=== PATIENT | female | born 1985 | race African-American/Black ===

== ENCOUNTER 2018-05-08 03:47 | Observation (INO) | payer OTHER ==
--- NOTE | 2018-05-08 05:13 | PDOC ---
History of Present Illness - General Stated Complaint: CHEST DISCOMFORT Time Seen by Provider: 05/08/18 05:09 - History of Present Illness Initial Comments: 05/08/18 05:10 33 yo F with h/o HTN, and AAA graft repair (2016) who p/w chest discomfort. Patient reports 2 days of diffuse chest pressure/tightness, SOB, and non productive cough, with no identifiable alleviators. Chest discomfort worse with position change and deep inhalation. Patient reports using friends duoneb with improvement in symptoms. Denies home O2 requirements. + chronic BL LE edema. Patient denies N/V, F,C, PND, orthopnea, palpitations urinary complaints, abdominal pain, diarrhea, constipation, lightheadedness, weakness, sensory changes. PMHx: as noted above. Denies h/o ACS/OH, stent placement, CABG. ROS: as noted SHx: Denies Etoh, IVDA tobacco use. Allergies: NKDA Past History - Past Medical History Allergies/Adverse Reactions: Allergies Allergy/AdvReac Type Severity Reaction Status Date / Time No Known Allergies Allergy Verified 05/08/18 05:23 Home Medications: Ambulatory Orders Metoprolol Tartrate [Lopressor -] 50 mg PO BID 06/27/15 Insulin Regular, Human [Humulin R -] 65 units SQ BID 10/28/15 Labetalol HCl [Normodyne -] 100 mg PO BID 10/28/15 NPH, Human Insulin Isophane [Humulin N] 65 unit SQ HS 10/28/15 NPH, Human Insulin Isophane [Humulin N] 95 unit SQ AM 10/28/15 Cephalexin [Keflex] 500 mg PO BID #14 capsule MDD 2 tab 05/08/18 Anemia: Yes Asthma: No Cancer: No Cardiac Disorders: No CVA: No COPD: No CHF: No DVT: No Dementia: No Diabetes: Yes (IDDM) Dialysis: No GI Disorders: No Disorders: No HTN: Yes Hypercholesterolemia: No Liver Disease: No Seizures: No Thyroid Disease: No - Surgical History Abdominal Surgery: No Appendectomy: No Cardiac Surgery: No Cholecystectomy: No Lung Surgery: No Neurologic Surgery: No - Immunization History Immunization Up to Date: Yes - Suicide/Smoking/Psychosocial Hx Smoking Status: No Smoking History: Never smoked Have you smoked in the past 12 months: No Number of Cigarettes Smoked Daily: 0 Hx Alcohol Use: No Drug/Substance Use Hx: No Substance Use Type: None Hx Substance Use Treatment: No Review of Systems - Review of Systems Comments:: 05/08/18 05:11 GENERAL/CONSTITUTIONAL: No fever or chills. No weakness. HEAD, EYES, EARS, NOSE AND THROAT: No change in vision. No ear pain or discharge. No sore throat. CARDIOVASCULAR: + chest pain and shortness of breath RESPIRATORY: + cough, wheezing. No hemoptysis. GASTROINTESTINAL: No nausea, vomiting, diarrhea or constipation. GENITOURINARY: No dysuria, frequency, or change in urination. MUSCULOSKELETAL: No joint or muscle swelling or pain. No neck or back pain. SKIN: No rash NEUROLOGIC: No headache, vertigo, loss of consciousness, or change in strength/ sensation. ENDOCRINE: No increased thirst. No abnormal weight change HEMATOLOGIC/LYMPHATIC: No anemia, easy bleeding, or history of blood clots. ALLERGIC/IMMUNOLOGIC: No hives or skin allergy. *Physical Exam - Physical Exam Comments: 05/08/18 05:11 GENERAL: Awake, alert, and fully oriented, in no acute distress HEAD: No signs of trauma, normocephalic, atraumatic EYES: PERRLA, EOMI, sclera anicteric, conjunctiva clear ENT: Hearing grossly normal, nares patent, oropharynx clear without exudates. Moist mucosa NECK: Normal ROM, supple, no lymphadenopathy, JVD, or masses LUNGS: + Exp wheezing. No distress, speaks full sentences, absent rales. HEART: Regular rate and rhythm, normal S1 and S2, no murmurs, rubs or gallops, peripheral pulses normal and equal bilaterally. ABDOMEN: Soft, nontender, normoactive bowel sounds. No guarding, no rebound. No masses EXTREMITIES : 2+ Pitting edema BL. Normal inspection, Normal range of motion. No clubbing or cyanosis. SKIN: Warm, Dry, normal turgor, no rashes or lesions noted ED Treatment Course - LABORATORY CBC & Chemistry Diagram: 05/08/18 05:59 05/08/18 05:59 Medical Decision Making - Medical Decision Making 05/08/18 05:12 33 yo F with h/o morbid obesity, HTN, and AAA graft repair (2016) who p/w pleuritic, chest discomfort. HR 104, BP 151/102, AF. + Exp wheezing. ACS/OH r/ o. R/o PNA. Low suspicion Ao dissection. Likely asthma exacerbation. DDx also includes COPD, CHF. R/o PE. Ed Course: CBC,CMP, Cardiac Pr. BNP, UA, Urine Preg EKG, CXR 05/08/18 06:36 EKG: NSR with absent JESSICA, STD. Normal axis and interval duration. 05/08/18 07:22 CBC,CMP: Unremarkable UA:3+ Blood, 489 RBC, 76 WBC Keflex sent to pharmacy HCG: Neg 05/08/18 07:28 CXR: No acute pathology on preliminary read CTA Chest Pending Trop: 0.07 05/08/18 08:10 Patient to be admitted to tele/obs. Signed out to day team. *DC/Admit/Observation/Transfer Diagnosis at time of Disposition: Cough, Elevated troponin Asthma Qualifiers: Asthma severity: mild Asthma persistence: unspecified Asthma complication type : unspecified Qualified Code(s): J45.998 - Other asthma - Discharge Dispostion Disposition: HOME Condition at time of disposition: Stable Decision to Admit order: No - Prescriptions Prescriptions: Cephalexin [Keflex] 500 mg PO BID #14 capsule MDD 2 tab - Referrals - Patient Instructions Printed Discharge Instructions: DI for Atypical Chest Pain Additional Instructions: Please return to the emergency department with any new or worsening symptoms or concerns. Please follow up with your primary care physician within 72 hours. Please take Keflex two times per day for 7 days. - Post Discharge Activity - Attestations Physician Attestion: 05/08/18 05:13 I attest to the information provided in this note.
[2018-05-08] MEDS ORDERED: ALBUTEROL SO4 2.5/IPRATROPIUM 0.5 INH SOL 3 ML VIAL.NEB. NEB ONE ×4 (05:26→13:49)
--- NOTE | 2018-05-08 05:45 | PDOC ---
Attending Attestation - Resident Resident Name: Guillermo Bennett - ED Attending Attestation I have performed the following: I have examined & evaluated the patient, The case was reviewed & discussed with the resident, I agree w/resident's findings & plan, Exceptions are as noted - HPI HPI: 33 yo F history morbid obesity, HTN, AAA repair 2016 presents with pleuritic chest pain. Noted to have tachycardia, hypertension. She used friend's duoneb with some improvment. Notes chronic BLE edema. - Physicial Exam PE: GENERAL: Awake, alert, and fully oriented, in no acute distress HEAD: No signs of trauma EYES: PERRLA, EOMI, sclera anicteric, conjunctiva clear ENT: Auricles normal inspection, hearing grossly normal, nares patent, oropharynx clear without exudates. Moist mucosa NECK: Normal ROM, supple, no lymphadenopathy, JVD, or masses LUNGS: Dec air entry B/L with exp wheezes. Speaking full sentences. No crackles. HEART: Tachycardic with regular rhythm, normal S1 and S2, no murmurs, rubs or gallops ABDOMEN: Soft, nontender, normoactive bowel sounds. No guarding, no rebound. No masses EXTREMITIES: Normal range of motion. 2+ pitting edema to BLE. No clubbing or cyanosis. No cords, erythema, or tenderness NEUROLOGICAL: Cranial nerves II through XII grossly intact. Normal speech, normal gait SKIN: Warm, Dry, normal turgor, no rashes or lesions noted. - Medical Decision Making Labs including cardiac profile obtained. CTA obtained. Noted to have UTI on UA. Awaiting CTA results.
[2018-05-08 06:35] LABS: URINE APPEARANCE CLEAR; URINE BILIRUBIN NEGATIVE (<2.0 mg/dL); URINE COLOR YELLOW; URINE GLUCOSE (UA) 3+ (NEGATIVE); URINE KETONE NEGATIVE (NEGATIVE); URINE LEUK ESTERASE NEGATIVE (NEGATIVE); URINE NITRITE NEGATIVE (NEGATIVE); URINE UROBILINOGEN NEGATIVE mg/dL (0.2-1.0)
[2018-05-08 06:40] LABS: BASO % 0.6 % (0-2.0); EOS % 4.7 % (0-4.5); HEMATOCRIT 36.4 % (32.4-45.2); HEMOGLOBIN 11.8 GM/dL (10.7-15.3); LYMPH % 21.7 % (8-40); MCH 26.8 pg (25.7-33.7); MCHC 32.5 g/dl (32.0-36.0); MEAN CELL VOLUME 82.5 fl (80-96); MEAN PLT VOLUME 8.1 fl (7.5-11.1); MONO % 5.3 % (3.8-10.2); NEUT % 67.7 % (42.8-82.8); PLATELET COUNT 278 K/MM3 (134-434); RDW 15.3 % (11.6-15.6); WHITE BLOOD COUNT 9.3 K/mm3 (4.0-10.0)
[2018-05-08 06:59] LABS: URINE PROTEIN 3+ (NEGATIVE)
[2018-05-08 07:15] LABS: ALBUMIN 3.8 g/dl (3.4-5.0); ALK PHOS 149 U/L (45-117); ANION GAP 7 MMOL/L (8-16); BILIRUBIN,TOTAL 0.3 mg/dL (0.2-1); BLOOD UREA NITROGEN 20 mg/dL (7-18); CALCIUM 8.5 mg/dL (8.5-10.1); CHLORIDE 104 mmol/L (98-107); CO2 30 mmol/L (21-32); GLUCOSE,RANDOM 118 mg/dL (74-106); POTASSIUM 3.9 mmol/L (3.5-5.1); SGOT/AST 37 U/L (15-37); SGPT/ALT 44 U/L (13-61); SODIUM 140 mmol/L (136-145); TOT PROT 6.9 g/dl (6.4-8.2)
[2018-05-08 07:19] LABS: EPI CELLS RARE /HPF (FEW); URINE MUCUS RARE
--- NOTE | 2018-05-08 08:48 | HP ---
CHIEF COMPLAINT: chest discomfort HISTORY OF PRESENT ILLNESS: 33 year old female with a history of hypertension, abdominal aortic aneurysm repair (2016) presents to the hospital with 2 day history of chest discomfort, cough, and shortness of breath. She describes the discomfort as a "lump" in her throat that hurts her when she swallows or takes a deep breath, and reports that it becomes worse with various positions. She states that the pain sometimes comes down to the mid-sternum and radiates to the left side of her chest. She reports a non-productive dry cough. States that prior to these symptoms, she had just gotten over a cold. Patient denies any family history of cardiac disease and denies blood clots in her or her family. She reports mild swelling in her legs bilaterally. Denies fevers, chills, nausea, vomiting, diarrhea, abdominal pain, fatigue. ER course was notable for: (1) BP 151/102 (2) pulse 104 (3) EKG NSR 99bmp Recent Travel: denies PAST MEDICAL HISTORY: HTN, AAA aneurysm PAST SURGICAL HISTORY: AAA repair, kidney biopsy, C section, breast reduction Social History: Smoking: denies Alcohol: denies Drugs: denies Family History: no history of cardiac disease, cancer, diabetes, or stroke Allergies No Known Allergies Allergy (Verified 05/08/18 05:23) HOME MEDICATIONS: Home Medications Medication Instructions Recorded Metoprolol Tartrate [Lopressor -] 50 mg PO BID 06/27/15 Insulin Regular, Human [Humulin R 65 units SQ BID 10/28/15 -] Labetalol HCl [Normodyne -] 100 mg PO BID 10/28/15 NPH, Human Insulin Isophane 65 unit SQ HS 10/28/15 [Humulin N] NPH, Human Insulin Isophane 95 unit SQ AM 10/28/15 [Humulin N] Cephalexin [Keflex] 500 mg PO BID #14 capsule MDD 2 tab 05/08/18 REVIEW OF SYSTEMS CONSTITUTIONAL: Absent: fever, chills, diaphoresis, generalized weakness, malaise, loss of appetite, weight change HEENT: Absent: rhinorrhea, nasal congestion, throat pain, throat swelling, difficulty swallowing, mouth swelling, ear pain, eye pain, visual changes CARDIOVASCULAR: chest pain Absent: syncope, palpitations, irregular heart rate, lightheadedness, peripheral edema RESPIRATORY: Absent: cough, shortness of breath, dyspnea with exertion, orthopnea, wheezing, stridor, hemoptysis GASTROINTESTINAL: Absent: abdominal pain, abdominal distension, nausea, vomiting, diarrhea, constipation, melena, hematochezia GENITOURINARY: Absent: dysuria, frequency, urgency, hesitancy, hematuria, flank pain, genital pain MUSCULOSKELETAL: Absent: myalgia, arthralgia, joint swelling, back pain, neck pain SKIN: Absent: rash, itching, pallor HEMATOLOGIC/IMMUNOLOGIC: Absent: easy bleeding, easy bruising, lymphadenopathy, frequent infections ENDOCRINE: Absent: unexplained weight gain, unexplained weight loss, heat intolerance, cold intolerance NEUROLOGIC: Absent: headache, focal weakness or paresthesias, dizziness, unsteady gait, seizure, mental status changes, bladder or bowel incontinence PSYCHIATRIC: Absent: anxiety, depression, suicidal or homicidal ideation, hallucinations. PHYSICAL EXAMINATION Vital Signs - 24 hr 05/08/18 03:50 Temperature 99.0 F Pulse Rate 104 H Respiratory 20 Rate Blood Pressure 151/102 H O2 Sat by Pulse 98 Oximetry (%) GENERAL: A&Ox3, no acute distress EYES: PERRLA, EOMI ENT: Moist mucus membranes NECK: No JVD LUNGS: CTA, no wheezes HEART: RRR, no murmurs ABDOMEN: Morbidly obese, soft, nontender, BS present MUSCULOSKELETAL: No CVA Tenderness EXTREMITIES: 2+ pulses, 1+ edema. NEUROLOGICAL: Cranial nerves II-XII intact. Laboratory Results - last 24 hr 05/08/18 05/08/18 05/08/18 05:59 05:59 05:59 WBC 9.3 RBC 4.40 Hgb 11.8 Hct 36.4 MCV 82.5 MCH 26.8 MCHC 32.5 RDW 15.3 Plt Count 278 D MPV 8.1 Absolute Neuts (auto) 6.3 Neutrophils % 67.7 Lymphocytes % 21.7 D Monocytes % 5.3 Eosinophils % 4.7 H D Basophils % 0.6 Nucleated RBC % 0 Sodium Potassium Chloride Carbon Dioxide Anion Gap BUN Creatinine Creat Clearance w eGFR Random Glucose Calcium Total Bilirubin AST ALT Alkaline Phosphatase Creatine Kinase 274 H Creatine Kinase Index 0.6 CK-MB (CK-2) 1.7 Troponin I 0.07 H B-Natriuretic Peptide Total Protein Albumin Urine Color Yellow Urine Appearance Clear Urine pH 5.0 Ur Specific [place] 1.020 Urine Protein 3+ H Urine Glucose (UA) 3+ H Urine Ketones Negative Urine Blood 3+ H Urine Nitrite Negative Urine Bilirubin Negative Urine Urobilinogen Negative Ur Leukocyte Esterase Negative Urine WBC (Auto) 76 Urine RBC (Auto) 489 Ur Epithelial Cells Rare Urine Mucus Rare Urine HCG, Qual 05/08/18 05/08/18 05/08/18 05:59 05:59 05:59 WBC RBC Hgb Hct MCV MCH MCHC RDW Plt Count MPV Absolute Neuts (auto) Neutrophils % Lymphocytes % Monocytes % Eosinophils % Basophils % Nucleated RBC % Sodium 140 Potassium 3.9 Chloride 104 Carbon Dioxide 30 Anion Gap 7 L BUN 20 H Creatinine 1.0 Creat Clearance w eGFR > 60 Random Glucose 118 H Calcium 8.5 Total Bilirubin 0.3 AST 37 ALT 44 Alkaline Phosphatase 149 H Creatine Kinase Creatine Kinase Index CK-MB (CK-2) Troponin I B-Natriuretic Peptide 36.6 Total Protein 6.9 Albumin 3.8 Urine Color Urine Appearance Urine pH Ur Specific [place] Urine Protein Urine Glucose (UA) Urine Ketones Urine Blood Urine Nitrite Urine Bilirubin Urine Urobilinogen Ur Leukocyte Esterase Urine WBC (Auto) Urine RBC (Auto) Ur Epithelial Cells Urine Mucus Urine HCG, Qual Negative ASSESSMENT/PLAN: 33 year old female with a history of hypertension, abdominal aortic aneurysm repair (2015) presents to the hospital with 2 day history of chest discomfort, cough, and shortness of breath #Chest pain: unlikely cardiac event, but admitted for rule out PE and cardiac monitoring for 24 hours -initial troponin 0.07, repeat at 12pm -cardiac monitoring -CTA chest negative for PE -echocardiogram -cardiology consultation -duoneb -ENT consult for feeling of lump in throat -GI consult for swallowing difficulty -protonix 40 daily #Hypertension: patient is continuing to have hypertension despite being on lisinopril -continue home lisinopril 10 daily -start amlodipine 5 daily -start metoprolol 50 BID #FEN -saline @ 100cc/hr 1 bag -lytes normal -low sodium diet #Prophylaxis -lovenox #Disposition -admit telemetry monitoring Visit type - Emergency Visit Emergency Visit: Yes ED Registration Date: 05/08/18 Care time: The patient presented to the Emergency Department on the above date and was hospitalized for further evaluation of their emergent condition. - New Patient This patient is new to me today: Yes Date on this admission: 05/08/18 - Critical Care Critical Care patient: No
[2018-05-08] MEDS ORDERED: ACETAMINOPHEN 325 MG TABLET (FP) PO PRN (08:49)
[2018-05-08] MEDS ORDERED: SODIUM CHLORIDE 0.45% 1,000 ML IV SCH (09:00)
[2018-05-08] MEDS ORDERED: ENOXAPARIN NA (PORCINE) 40 MG/0.4 ML DISP.SYRIN SQ ONE (09:05)
--- NOTE | 2018-05-08 10:41 | EKG ---
Test Reason : Blood Pressure : / mmHG Vent. Rate : 099 BPM Atrial Rate : 099 BPM P-R Int : 144 ms QRS Dur : 074 ms QT Int : 342 ms P-R-T Axes : 040 029 018 degrees QTc Int : 438 ms NORMAL SINUS RHYTHM POSSIBLE LEFT ATRIAL ENLARGEMENT NONSPECIFIC T WAVE ABNORMALITY ABNORMAL ECG Confirmed by Suman Burdick MD ([id number]) on 05/08/2018 10:41:19 AM Referred By: Confirmed By:Suman Burdick MD
[2018-05-08] MEDS: ALBUTEROL SO4 2.5/IPRATROPIUM 0.5 INH SOL 3 ML VIAL.NEB. NEB PRN ×2 (10:54→13:57)
[2018-05-08] MEDS: ENOXAPARIN NA (PORCINE) 40 MG/0.4 ML DISP.SYRIN SQ SCH (10:54)
--- NOTE | 2018-05-08 10:55 | PN ---
Teaching Attending Note Name of Resident: Marcelo Pantoja ATTENDING PHYSICIAN STATEMENT I saw and evaluated the patient. I reviewed the resident's note and discussed the case with the resident. I agree with the resident's findings and plan as documented. SUBJECTIVE: This is a 33 year old woman with a history of HTN, hyperlipidemia, AAA and repair, RAJ, obesity who comes to the ED complaining of chest pain, cough and SOB. She reports having the feeling of a lump in her throat and is unable to swallow solid food or liquids. This pain is sometimes located in the middle of her chest. Symptoms are worse with deep inspiration and when swallowing. She denies CP/SOB with exertion, fever, chills, palpitations, heartburn. OBJECTIVE: Vital Signs Period Temp Pulse Resp BP Sys/Al Pulse Ox Last 24 Hr 99.0 F 104 20 151/102 98 HEART: S1S2, tachycardic LUNGS: Clear ABDOMEN: Obese, soft, non-tender, non-distended, normal BS EXTREMITIES: Trace edema Laboratory Tests 05/08/18 05/08/18 05/08/18 05:59 05:59 05:59 WBC 9.3 RBC 4.40 Hgb 11.8 Hct 36.4 MCV 82.5 MCH 26.8 MCHC 32.5 RDW 15.3 Plt Count 278 D MPV 8.1 Absolute Neuts (auto) 6.3 Neutrophils % 67.7 Lymphocytes % 21.7 D Monocytes % 5.3 Eosinophils % 4.7 H D Basophils % 0.6 Nucleated RBC % 0 Sodium Potassium Chloride Carbon Dioxide Anion Gap BUN Creatinine Creat Clearance w eGFR Random Glucose Calcium Total Bilirubin AST ALT Alkaline Phosphatase Creatine Kinase 274 H Creatine Kinase Index 0.6 CK-MB (CK-2) 1.7 Troponin I 0.07 H B-Natriuretic Peptide Total Protein Albumin Urine Color Yellow Urine Appearance Clear Urine pH 5.0 Ur Specific [place] 1.020 Urine Protein 3+ H Urine Glucose (UA) 3+ H Urine Ketones Negative Urine Blood 3+ H Urine Nitrite Negative Urine Bilirubin Negative Urine Urobilinogen Negative Ur Leukocyte Esterase Negative Urine WBC (Auto) 76 Urine RBC (Auto) 489 Ur Epithelial Cells Rare Urine Mucus Rare Urine HCG, Qual 05/08/18 05/08/18 05/08/18 05:59 05:59 05:59 WBC RBC Hgb Hct MCV MCH MCHC RDW Plt Count MPV Absolute Neuts (auto) Neutrophils % Lymphocytes % Monocytes % Eosinophils % Basophils % Nucleated RBC % Sodium 140 Potassium 3.9 Chloride 104 Carbon Dioxide 30 Anion Gap 7 L BUN 20 H Creatinine 1.0 Creat Clearance w eGFR > 60 Random Glucose 118 H Calcium 8.5 Total Bilirubin 0.3 AST 37 ALT 44 Alkaline Phosphatase 149 H Creatine Kinase Creatine Kinase Index CK-MB (CK-2) Troponin I B-Natriuretic Peptide 36.6 Total Protein 6.9 Albumin 3.8 Urine Color Urine Appearance Urine pH Ur Specific Ira Urine Protein Urine Glucose (UA) Urine Ketones Urine Blood Urine Nitrite Urine Bilirubin Urine Urobilinogen Ur Leukocyte Esterase Urine WBC (Auto) Urine RBC (Auto) Ur Epithelial Cells Urine Mucus Urine HCG, Qual Negative Home Medications Medication Instructions Recorded Metoprolol Tartrate [Lopressor -] 50 mg PO BID 06/27/15 Insulin Regular, Human [Humulin R 65 units SQ BID 10/28/15 -] Labetalol HCl [Normodyne -] 100 mg PO BID 10/28/15 NPH, Human Insulin Isophane 95 unit SQ AM 10/28/15 [Humulin N] ASSESSMENT AND PLAN: This is a 33 year old woman with a history of HTN, hyperlipidemia, AAA and repair, RAJ, obesity who presented to the ED with chest pain, cough, SOB, and difficulty swallowing. 1. Chest pain, odynophagia - Unlikely cardiac - No evidence of PE on CTA - Monitor or telemetry - Serial troponins - Protonix - ENT, GI, cardiology evaluations 2. HTN, uncontrolled - Continue Lisinopril - Add Norvasc 3. Hyperlipidemia 4. Obstructive sleep apnea 5. Morbid obesity with BMI 44.8
--- NOTE | 2018-05-08 11:30 | CON.CARD ---
Consult Consult Specialty:: Cardiology Referred by:: Hospitalist Reason for Consultation:: Cardiac evaluation - History of Present Illness Chief Complaint: SOB and chest pain History of Present Illness: Patient is a 33 year old female morbidly obese and has history of HTN, hypercholesterolemia, diabetes mellitus, obstructive sleep apnea and AAA s/p EVAR (2016) who presents with mid sternal chest discomfort, SOB and mild productive cough. Troponin was slightly elevated without any ECG abnormalities. CT of chest did not reveal PTE. She states that symptoms started 2 days ago and it occurs intermittently. She denies paroxysmal nocturnal dyspnea or orthopnea. She denies nausea, vomiting, diarrhea or abdominal pain. She denies fever or chills. She denies headache or lightheadedness. - History Source History Provided By: Patient, Medical Record Limitations to Obtaining History: No Limitations - Past Medical History Cardio/Vascular: Yes: HTN, Hyperlipdemia Pulmonary: Yes: Sleep Apnea. No: Asthma, COPD ...LMP: 08/31/14 Musculoskeletal: Yes: Other (left thigh pain) Endocrine: Yes: Diabetes Mellitus - Past Surgical History Past Surgical History: Yes: AAA Repair (EVAR), Additional Surgical History: Breast reduction - Alcohol/Substance Use Hx Alcohol Use: No - Smoking History Smoking history: Never smoked Have you smoked in the past 12 months: No Aproximately how many cigarettes per day: 0 - Social History ADL: Independent History of Recent Travel: No Home Medications - Allergies Allergies/Adverse Reactions: Allergies Allergy/AdvReac Type Severity Reaction Status Date / Time No Known Allergies Allergy Verified 05/08/18 05:23 - Home Medications Home Medications: Ambulatory Orders Metoprolol Tartrate [Lopressor -] 50 mg PO BID 06/27/15 Insulin Regular, Human [Humulin R -] 65 units SQ BID 10/28/15 Labetalol HCl [Normodyne -] 100 mg PO BID 10/28/15 NPH, Human Insulin Isophane [Humulin N] 95 unit SQ AM 10/28/15 Family Disease History - Family Disease History Family Disease History: Heart Disease: Father Review of Systems - Review of Systems Constitutional: denies: Chills, Fever Cardiovascular: reports: Chest Pain, Shortness of Breath. denies: Palpitations Respiratory: reports: Cough, SOB. denies: Hemoptysis, Orthopnea, PND Gastrointestinal: denies: Abdominal Pain, Constipation, Diarrhea, Melena, Nausea , Rectal Bleeding, Vomiting Neurological: denies: Dizziness, Headache, Seizure, Syncope Vital Signs: Vital Signs Temperature 98.4 F 05/08/18 10:45 Pulse Rate 88 05/08/18 10:45 Respiratory Rate 20 05/08/18 10:45 Blood Pressure 179/99 H 05/08/18 10:45 O2 Sat by Pulse Oximetry (%) 98 05/08/18 10:45 Constitutional: Yes: Obese Eyes: Yes: PERRL HENT: Yes: Atraumatic Neck: Yes: Supple Respiratory: Yes: Diminished Gastrointestinal: Yes: Normal Bowel Sounds, Soft, Abdomen, Obese. No: Tenderness Cardiovascular: Yes: Regular Rate and Rhythm JVD: No Carotid Bruit: No PMI: Non-Displaced Heart Sounds: Yes: S1, S2. No: Gallop Murmur: No: Systolic Murmur Edema: No - Other Data Labs, Other Data: CBC, BMP 05/08/18 05:59 05/08/18 05:59 Troponin, BNP 05/08/18 05/08/18 05:59 05:59 Troponin I 0.07 H B-Natriuretic Peptide 36.6 NSR, nonspecific T abnormality Echo: Pending Imaging - Results Cat Scan: Report Reviewed (CTA chest noted) EKG: Report Reviewed Problem List - Problems (1) Chest pain Code(s): R07.9 - CHEST PAIN, UNSPECIFIED Qualifiers: Chest pain type: unspecified Qualified Code(s): R07.9 - Chest pain, unspecified (2) HTN (hypertension) Code(s): I10 - ESSENTIAL (PRIMARY) HYPERTENSION Qualifiers: Hypertension type: essential hypertension Qualified Code(s): I10 - Essential (primary) hypertension (3) Hypercholesterolemia Code(s): E78.00 - PURE HYPERCHOLESTEROLEMIA, UNSPECIFIED (4) Diabetes mellitus Code(s): E11.9 - TYPE 2 DIABETES MELLITUS WITHOUT COMPLICATIONS (5) Cough Code(s): R05 - COUGH (6) Elevated troponin Code(s): R74.8 - ABNORMAL LEVELS OF OTHER SERUM ENZYMES (7) Obstructive sleep apnea Code(s): G47.33 - OBSTRUCTIVE SLEEP APNEA (ADULT) (PEDIATRIC) (8) Reactive airway disease Code(s): J45.909 - UNSPECIFIED ASTHMA, UNCOMPLICATED Assessment/Plan 1. Chest pain syndrome and throat pain with slight elevation of troponin suggest demand ischemia 2. AAA repair (EVAR) 3. HTN 4. Hypercholesterolemia 5. DM 6. Obstructive sleep apnea 7. Exogenous obesity PLAN: 1. Trend troponin 2. Echocardiography to assess LV/RV and valvular function 3. ENT evaluation 4. Lipid panel and statin if clinically indicated 5. Treat sleep apnea 6. Add beta sulma (Metoprolol Tartrate 50 BID) and add ACEI or ARB 7. ASA Further plans are to follow Maverick Leon MD
[2018-05-08] MEDS ORDERED: amLODIPine BESYLATE 5 MG TABLET (FP) ONE (14:06)
[2018-05-08] MEDS ORDERED: METOPROLOL TARTRATE 50 MG TABLET (FP) ONE (14:06)
[2018-05-08] MEDS ORDERED: LISINOPRIL 5 MG TABLET (FP) ONE (14:06)
[2018-05-08] MEDS: LISINOPRIL 10 MG TABLET (FP) PO SCH (14:11)
[2018-05-08] MEDS: METOPROLOL TARTRATE 50 MG TABLET (FP) PO SCH ×2 (14:11→22:06)
[2018-05-08] MEDS: amLODIPine BESYLATE 5 MG TABLET (FP) PO SCH (14:11)
--- NOTE | 2018-05-08 16:03 | ECHO ---
Name: ENEIDA HERNANDEZ Exam:Adult Echocardiogram Study Date: 05/08/2018 01:28 PM Age: 33 yrs Reason For Study: CHEST PAIN Height: 72 in Weight: 330 lb BSA: 2.6 m2 MMode/2D Measurements & Calculations IVSd: 1.2 cm Ao root diam: 3.2 cm LVIDd: 4.6 cm LA dimension: 3.1 cm LVIDs: 2.8 cm LVPWd: 1.2 cm EDV(Teich): 96.8 ml LVOT diam: 2.2 cm ESV(Teich): 30.5 ml RV S Spenser: 15.4 cm/sec Doppler Measurements & Calculations MV E max spenser: 55.3 cm/sec Med Peak E' Spenser: 6.5 cm/sec MV A max spenser: 52.4 cm/sec Med E/e': 8.5 MV E/A: 1.1 Lat Peak E' Spenser: 5.1 cm/sec Lat E/e': 10.8 Procedure A complete two-dimensional transthoracic echocardiogram was performed (2D, M-mode, Doppler and color flow Doppler). Left Ventricle The left ventricular size, thickness and function are normal. Ejection Fraction = 65%. Right Ventricle The right ventricle is normal in size and function. Atria Normal left and right atrial size and function. Mitral Valve The mitral valve is normal in structure and function. Tricuspid Valve The tricuspid valve is normal in structure and function. Aortic Valve The aortic valve is normal in structure and function. Pulmonic Valve The pulmonic valve is not well seen, but is grossly normal. Great Vessels The aortic root is normal size. Pericardium/Pleura There is no pericardial effusion. There is no pleural effusion. Interpretation Summary This was essentially a normal study. The left ventricular size, thickness and function are normal Ejection Fraction = 65%. MD Suman Burdick 05/08/2018 04:02 PM
--- NOTE | 2018-05-08 16:25 | CON.GI ---
Consult Consult Specialty:: GI Referred by:: Hospitalist Service Reason for Consultation:: Dysphagia - History of Present Illness Chief Complaint: "I can't breathe and my throat hurts" History of Present Illness: 33F admitted through [facility] ER for evaluation of shortness of breath. She also comoplains of throat pain "that is making it hard to swallow" chest pain, and she describes a ball like sensation in her mid chest. She believes that this all started after a URI (describes fevers/chills that resolved followed by cough. She denies nausea, vomiting or unintentional weight loss. She had a previous CT scan of the neck in 2013 that showed enlarged "kissing" tonsils. She denies abdominal pain, rectal bleeding, change in bowel habits. She has never had an upper endoscopy or colonoscopy. there is no family history of colorectal cancer or other GI malignancy. - History Source History Provided By: Patient, Family Member - Past Medical History Cardio/Vascular: Yes: HTN, Hyperlipdemia Pulmonary: Yes: Sleep Apnea. No: Asthma, COPD ...LMP: 08/31/14 Musculoskeletal: Yes: Other (left thigh pain) Endocrine: Yes: Diabetes Mellitus - Past Surgical History Past Surgical History: Yes: AAA Repair (EVAR), Additional Surgical History: Breast reduction - Alcohol/Substance Use Hx Alcohol Use: Yes (Social) History of Substance Use: reports: None - Smoking History Smoking history: Never smoked Have you smoked in the past 12 months: No Aproximately how many cigarettes per day: 0 - Social History ADL: Independent Occupation: Unemployed Place of : Other ([place]) Came to [place]year[place] 1998 History of Recent Travel: No Home Medications - Allergies Allergies/Adverse Reactions: Allergies Allergy/AdvReac Type Severity Reaction Status Date / Time No Known Allergies Allergy Verified 05/08/18 05:23 - Home Medications Home Medications: Ambulatory Orders Metoprolol Tartrate [Lopressor -] 50 mg PO BID 06/27/15 Insulin Regular, Human [Humulin R -] 65 units SQ BID 10/28/15 Labetalol HCl [Normodyne -] 100 mg PO BID 10/28/15 NPH, Human Insulin Isophane [Humulin N] 95 unit SQ AM 10/28/15 Family Disease History - Family Disease History Family Disease History: Heart Disease: Father (: Alcoholic liver cirrhosis) , Other: Mother (Alive: healthy), Brother (3, healthy), Sister (2, healthy), Son (1, healthy) Other Family History: No family history of colorectal cancer or other GI malignancy Review of Systems - Review of Systems Constitutional: reports: Chills, Fever (resolved) HENT: reports: Difficult Swallowing Cardiovascular: reports: Chest Pain, Shortness of Breath Respiratory: reports: Cough Gastrointestinal: reports: Dysphagia. denies: Abdominal Pain, Constipation, Diarrhea, Melena, Nausea, Vomiting, Vomiting Blood Physical Exam-GI Vital Signs: Vital Signs Temperature 97.9 F 05/08/18 15:53 Pulse Rate 80 05/08/18 15:53 Respiratory Rate 20 05/08/18 15:53 Blood Pressure 133/80 05/08/18 15:53 O2 Sat by Pulse Oximetry (%) 100 05/08/18 15:53 Constitutional: Yes: Calm Eyes: No: Sclera Icterus HENT: Yes: Other (Tongue depressor utilized: white coating of tongue, no posterior pharyngeal thrush noted, 1+ tonsils, mucous in the posterior pharynx) Cardiovascular: Yes: Regular Rate and Rhythm. No: Murmur Respiratory: Yes: CTA Bilaterally Gastrointestinal Inspection: Yes: Scars (vertical pelvic surgical scar) ...Auscultate: Yes: Normoactive Bowel Sounds ...Palpate: No: Hepatomegaly, Splenomegaly, Tenderness ...Percussion: No: Tympanitic Edema: Yes (Trace b/l LE edema) Neurological: Yes: Alert Labs: CBC, BMP 05/08/18 05:59 05/08/18 05:59 Hepatic Panel Total Bilirubin 0.3 mg/dL (0.2-1) 05/08/18 05:59 AST 37 U/L (15-37) 05/08/18 05:59 ALT 44 U/L (13-61) 05/08/18 05:59 Alkaline Phosphatase 149 U/L (45-117) H 05/08/18 05:59 Albumin 3.8 g/dl (3.4-5.0) 05/08/18 05:59 Imaging - Results Cat Scan: Report Reviewed Assessment/Plan Dysphagia: Main complaints seem to be related to her throat complaints. This in turn seems to have been precipitated by a recent URI. Tolerated water as I was examining her. Advise: ENT evaluation S/S evaluation. A modified barium swallow may be of benefit when acute issues are resolved Ranitidine oral suspension 150mg once daily Clear diet to assess if she can tolerate then advance
[2018-05-08] MEDS: ASPIRIN COATED 81 MG TABLET.EC PO SCH (22:06)
[2018-05-08] MEDS: INSULIN SLIDING SCALE (NOVOLOG) 1 VIAL SQ SCH (22:10)
[2018-05-09] MEDS: ALBUTEROL SO4 2.5/IPRATROPIUM 0.5 INH SOL 3 ML VIAL.NEB. NEB PRN (00:05)
[2018-05-09 00:10] VITALS: BMI 41.2
[2018-05-09] MEDS: INSULIN SLIDING SCALE (NOVOLOG) 1 VIAL SQ SCH ×4 (06:30→18:43)
[2018-05-09 06:36] LABS: HEMATOCRIT 35.2 % (32.4-45.2); HEMOGLOBIN 11.2 GM/dL (10.7-15.3); MCH 26.5 pg (25.7-33.7); MCHC 31.9 g/dl (32.0-36.0); MEAN PLT VOLUME 7.9 fl (7.5-11.1); PLATELET COUNT 241 K/MM3 (134-434); RBC 4.24 M/mm3 (3.60-5.2); RDW 15.6 % (11.6-15.6); WHITE BLOOD COUNT 7.8 K/mm3 (4.0-10.0)
[2018-05-09 06:57] LABS: ANION GAP 12 MMOL/L (8-16); BLOOD UREA NITROGEN 14 mg/dL (7-18); CALCIUM 8.2 mg/dL (8.5-10.1); CHLORIDE 102 mmol/L (98-107); CO2 24 mmol/L (21-32); GLUCOSE,RANDOM 265 mg/dL (74-106); MAGNESIUM 2.1 mg/dL (1.8-2.4); POTASSIUM 4.2 mmol/L (3.5-5.1); SODIUM 138 mmol/L (136-145)
[2018-05-09] MEDS ORDERED: PT OWN MED DRAWER 7, Y5N ONE (09:41)
[2018-05-09] MEDS: METOPROLOL TARTRATE 50 MG TABLET (FP) PO SCH (09:48)
[2018-05-09] MEDS: amLODIPine BESYLATE 5 MG TABLET (FP) PO SCH (09:48)
[2018-05-09] MEDS: ASPIRIN COATED 81 MG TABLET.EC PO SCH (09:48)
[2018-05-09] MEDS: LISINOPRIL 10 MG TABLET (FP) PO SCH (09:48)
[2018-05-09] MEDS: ENOXAPARIN NA (PORCINE) 40 MG/0.4 ML DISP.SYRIN SQ SCH (09:49)
[2018-05-09] MEDS ORDERED: RANITIDINE HCL 150 MG/10 ML UNIT-DOSE PO SCH (10:00)
[2018-05-09] MEDS ORDERED: INSULIN (NOVOLOG) ASPART 100 UNITS/ML 10ML VIAL ONE (12:18)
--- NOTE | 2018-05-09 12:57 | CON.ENT ---
Consult Reason for Consultation:: Sore throat/trouble swallowing - History of Present Illness Chief Complaint: Sore throat/trouble swallowing History of Present Illness: 33 yo female with multiple medical problems , was in [place] until 3 days ago when she started with a dry cough and sore throat. She subsequently developed trouble swallowing and chest pressure and discomfort which brought her to the ER. Work up so far negative for PE, [place]. She then noted congestion, thick mucus and mild hoarseness. She is in no respiratory distress and is taking PO without minimal difficulty - History Source History Provided By: Patient Limitations to Obtaining History: No Limitations - Past Medical History Cardio/Vascular: Yes: HTN, Hyperlipdemia Pulmonary: Yes: Sleep Apnea. No: Asthma, COPD ...LMP: 05/09/18 ...: No Musculoskeletal: Yes: Other (left thigh pain) Endocrine: Yes: Diabetes Mellitus - Past Surgical History Past Surgical History: Yes: AAA Repair (EVAR), Additional Surgical History: Breast reduction - Alcohol/Substance Use Hx Alcohol Use: Yes (Social) History of Substance Use: reports: None - Smoking History Smoking history: Never smoked Have you smoked in the past 12 months: No Aproximately how many cigarettes per day: 0 - Social History ADL: Independent Occupation: Unemployed History of Recent Travel: No Home Medications - Allergies Allergies/Adverse Reactions: Allergies Allergy/AdvReac Type Severity Reaction Status Date / Time No Known Allergies Allergy Verified 05/08/18 05:23 - Home Medications Home Medications: Ambulatory Orders Metoprolol Tartrate [Lopressor -] 50 mg PO BID 06/27/15 Insulin Regular, Human [Humulin R -] 65 units SQ BID 10/28/15 Labetalol HCl [Normodyne -] 100 mg PO BID 10/28/15 NPH, Human Insulin Isophane [Humulin N] 95 unit SQ AM 10/28/15 Family Disease History - Family Disease History Family Disease History: Heart Disease: Father (: Alcoholic liver cirrhosis) , Other: Mother (Alive: healthy), Brother (3, healthy), Sister (2, healthy), Son (1, healthy) Other Family History: No family history of colorectal cancer or other GI malignancy Review of Systems - Review of Systems HENT: reports: Difficult Swallowing, Nasal Congestion, Throat Pain Neck: reports: Tenderness Respiratory: reports: Cough Physical Exam-ENT Vital Signs: Vital Signs Temperature 98.4 F 05/09/18 10:00 Pulse Rate 88 05/09/18 10:00 Respiratory Rate 20 05/09/18 10:00 Blood Pressure 150/92 05/09/18 10:00 O2 Sat by Pulse Oximetry (%) 97 05/09/18 10:00 Constitutional: Yes: No Distress, Obese Head: Yes: WNL Face: Yes: No Sinus Tenderness Eyes: Yes: WNL Nose: Yes: Boggy, Pale Nasal Passage: Yes: Pale Oral/Pharynx: Yes: Enlarged Tonsils, Other (NO exudate or lesions) Outer Ear: Yes: WNL Ear Canal: Yes: WNL Tympanic Membrane: Yes: WNL Neck: Yes: WNL Respiratory: Yes: Regular Extremities: Yes: WNL Neurological: Yes: Cran Nerves II-XII Intact Psychiatric: Yes: Alert Imaging - Results Chest X-ray: Report Reviewed Cat Scan: Report Reviewed Problem List - Problems (1) Dysphagia Assessment/Plan: Recent onset cough, sore throat, congestion and trouble swallowing with mild hoarseness- no purulence or lesions noted with normal VC mobility. Symptoms and findings consistent with viral syndrome. Continue medical workup and to treat symptoms as needed. ENT follow-up as an outpatient. Code(s): R13.10 - DYSPHAGIA, UNSPECIFIED Qualifiers: Dysphagia type: unspecified Qualified Code(s): R13.10 - Dysphagia, unspecified Procedure Note Procedure: Flexible Laryngoscopy- after obtaining verbal consent, topical decongestant/ anesthetic was spray into the nose. Flexible scope was passed. No evidence of sinusitis. Cloudy mucus in Nasopharynx. No tonsillar exudate noted. No airway edema or lesions noted. VC mobile bilaterally. Mild erythema of mucosa.
--- NOTE | 2018-05-09 13:02 | PN ---
Progress Note, Physician History of Present Illness: Throat pain and odynophagia improving, NPL by ENT unrevealing. - Current Medication List Current Medications: Active Medications Acetaminophen (Tylenol -) 650 mg PO Q4H PRN PRN Reason: PAIN Last Admin: 05/09/18 09:48 Dose: 650 mg Albuterol/Ipratropium (Duoneb -) 1 amp NEB Q4H PRN PRN Reason: SHORTNESS OF BREATH Last Admin: 05/09/18 00:05 Dose: 1 amp Amlodipine Besylate (Norvasc -) 5 mg PO DAILY [facility] Last Admin: 05/09/18 09:48 Dose: 5 mg Aspirin (Ecotrin -) 81 mg PO DAILY [facility] Last Admin: 05/09/18 09:48 Dose: 81 mg Enoxaparin Sodium (Lovenox -) 40 mg SQ DAILY [facility] Last Admin: 05/09/18 09:49 Dose: 40 mg Insulin Aspart (Novolog Vial Sliding Scale -) 1 vial SQ [facility]; Protocol Last Admin: 05/09/18 12:19 Dose: 8 units Lisinopril (Prinivil) 10 mg PO DAILY [facility] Last Admin: 05/09/18 09:48 Dose: 10 mg Metoprolol Tartrate (Lopressor -) 50 mg PO BID [facility] Last Admin: 05/09/18 09:48 Dose: 50 mg Ranitidine HCl (Zantac Oral Solution -) 150 mg PO DAILY [facility] Last Admin: 05/09/18 11:36 Dose: Not Given - Objective Vital Signs: Vital Signs Temperature 98.4 F 05/09/18 10:00 Pulse Rate 88 05/09/18 10:00 Respiratory Rate 20 05/09/18 10:00 Blood Pressure 150/92 05/09/18 10:00 O2 Sat by Pulse Oximetry (%) 97 05/09/18 10:00 Constitutional: Yes: No Distress, Calm Neck: Yes: Supple Cardiovascular: Yes: Regular Rate and Rhythm Respiratory: Yes: Regular, CTA Bilaterally Gastrointestinal: Yes: Normal Bowel Sounds, Soft Edema: No Labs: CBC, BMP 05/09/18 06:00 05/09/18 06:00 Problem List - Problems (1) Demand ischemia Code(s): I24.8 - OTHER FORMS OF ACUTE ISCHEMIC HEART DISEASE (2) Viral pharyngitis Code(s): J02.9 - ACUTE PHARYNGITIS, UNSPECIFIED (3) Chest pain Code(s): R07.9 - CHEST PAIN, UNSPECIFIED Qualifiers: Chest pain type: unspecified Qualified Code(s): R07.9 - Chest pain, unspecified (4) HTN (hypertension) Code(s): I10 - ESSENTIAL (PRIMARY) HYPERTENSION Qualifiers: Hypertension type: essential hypertension Qualified Code(s): I10 - Essential (primary) hypertension (5) Hypercholesterolemia Code(s): E78.00 - PURE HYPERCHOLESTEROLEMIA, UNSPECIFIED (6) Diabetes mellitus Code(s): E11.9 - TYPE 2 DIABETES MELLITUS WITHOUT COMPLICATIONS Qualifiers: Diabetes mellitus type: type 2 Diabetes mellitus manager long term care insulin use: without mcc use (7) Obstructive sleep apnea Code(s): G47.33 - OBSTRUCTIVE SLEEP APNEA (ADULT) (PEDIATRIC) Assessment/Plan 05/08/2018 Echo: Normal LV and RV szie abd fxn, no sig valve abnormalities 1. Chest pain syndrome and throat pain due to viral pharyngitis with slight elevation of troponin suggest demand ischemia 2. AAA repair (EVAR) 3. HTN 4. Hypercholesterolemia 5. DM 6. Obstructive sleep apnea on cpap 7. Exogenous obesity PLAN: 1. Troponin downtreding 3. ENT evaluation appreciatedd 4. Lipid panel and statin if clinically indicated 5. Treat sleep apnea 6. Continue Metoprolol Tartrate 50 BID, lisinopril 10 qd, ASA 81 qd and Norvasc 5 qd 7. DVT and GI prophylaxis
[2018-05-09 14:57] VITALS: BP 126/74; PULSE 90; TEMP 97.8
--- NOTE | 2018-05-09 15:49 | PN ---
Teaching Attending Note Name of Resident: John Jaimes ATTENDING PHYSICIAN STATEMENT I saw and evaluated the patient. I reviewed the resident's note and discussed the case with the resident. I agree with the resident's findings and plan as documented. SUBJECTIVE: No fever or chills. No abd pain , no MCDONALD , no PC . has pain with swallowing in throat and radiates to her abd OBJECTIVE: NAD CV : RRR Lungs: CTAB ext : no edema Abd: soft, NT, ND, NL BS. ASSESSMENT AND PLAN: 33 y/o lady with h/o DM , AAA repair , Dayanara, obesity , HTN and HLP, who presented with painin throat and chest with swallowing 1- CP , trop trended down - cont BB and aspirin - follow up with card - ENT evaluated her today , odynophagia due to viral illness. GI evaluated too 2- DM : on metformin as out pt . - repeat BMP to evaluate AG ( 7---12 today ) - will recommend insulin treatment in addition to metformin. if she does not agree can add januvia - weight loss 3- asymptomatic bacteruria : no treatment dc home if BMP , repeat sugar are better . refer to endocrine advise fro BGM ACHS as outpt , with close f/u with
--- NOTE | 2018-05-09 17:55 | PN ---
GI Progress Note Subjective: No acute events + cough Seen by ENT: felt throat discomfort precipitated by viral infection Still on clears Blood glucose has been elevated - Objective Vital Signs: Vital Signs Temperature 97.8 F 05/09/18 13:00 Pulse Rate 90 05/09/18 13:00 Respiratory Rate 16 05/09/18 13:00 Blood Pressure 126/74 05/09/18 13:00 O2 Sat by Pulse Oximetry (%) 97 05/09/18 10:00 Constitutional: Calm Eyes: No: Sclera Icterus Cardiovascular: Yes: Regular Rate and Rhythm Respiratory: Yes: CTA Bilaterally Gastrointestinal Inspection: No: Distention ...Auscultate: Yes: Normoactive Bowel Sounds ...Palpate: No: Tenderness Edema: Yes (Trace LE edema) Neurological: Yes: Alert, Oriented Labs: CBC, BMP 05/09/18 06:00 Problem List - Problems (1) Dysphagia Assessment/Plan: Suspect to be related to throat irritation Advance diet as tolerated glycemic control per primary team Recall GI as needed. I gave Ms. Rai my card to arrange future follow-up once acute issues are resolved Code(s): R13.10 - DYSPHAGIA, UNSPECIFIED
[2018-05-09 18:22] LABS: ANION GAP 7 MMOL/L (8-16); BLOOD UREA NITROGEN 14 mg/dL (7-18); CALCIUM 8.1 mg/dL (8.5-10.1); CHLORIDE 100 mmol/L (98-107); CO2 27 mmol/L (21-32); POTASSIUM 4.2 mmol/L (3.5-5.1); SODIUM 134 mmol/L (136-145)
[2018-05-09 18:24] LABS: GLUCOSE,RANDOM 313 mg/dL (74-106)
--- NOTE | 2018-05-09 20:04 | DS ---
Physical Exam: SUBJECTIVE: Patient seen and examined at bedside this morning. Patient admits improvement in "lump in throat" as well as in the chest. Denies fevers, chillls shortness of breath, palpitations, abdominal pain, nausea, vomiting, diarrhea. OBJECTIVE: Vital Signs Period Temp Pulse Resp BP Sys/Al Pulse Ox Last 24 Hr 97.5 F-98.4 F 84-90 16-20 126-155/74-96 96-97 PHYSICAL EXAM GENERAL: The patient is awake, alert, and fully oriented, in no acute distress. HEAD: Normal with no signs of trauma. EYES: PERRL, extraocular movements intact, sclera anicteric, conjunctiva clear. ENT: Oropharynx clear without exudates, moist mucous membranes. NECK: Trachea midline, full range of motion, supple without lymphadenopathy LUNGS: Breath sounds equal, clear to auscultation bilaterally, no wheezes, no crackles, no accessory muscle use. Good inspiratory effort. HEART: Regular rate and rhythm, S1, S2 without murmur, rub or gallop. ABDOMEN: Soft, nontender, nondistended, normoactive bowel sounds, no guarding, no rebound, no hepatosplenomegaly. EXTREMITIES: 2+ radial and dorsalis pedis pulses b/l. Warm, well-perfused. No edema b/l lower extremities. NEUROLOGICAL: Cranial nerves II through XII grossly intact. Normal speech. Strength 5/5 b/l upper and lower extremities. PSYCH: Normal mood, normal affect. SKIN: Warm, dry. LABS Laboratory Results - last 24 hr 05/08/18 05/08/18 05/08/18 19:50 20:13 20:23 WBC RBC Hgb Hct MCV MCH MCHC RDW Plt Count MPV Sodium Potassium Chloride Carbon Dioxide Anion Gap BUN Creatinine Creat Clearance w eGFR POC Glucometer > 400 > 400 Random Glucose 427 H* Calcium Phosphorus Magnesium 05/09/18 05/09/18 05/09/18 06:00 06:00 06:29 WBC 7.8 RBC 4.24 Hgb 11.2 Hct 35.2 MCV 83.0 MCH 26.5 MCHC 31.9 L RDW 15.6 Plt Count 241 MPV 7.9 Sodium 138 Potassium 4.2 Chloride 102 Carbon Dioxide 24 Anion Gap 12 BUN 14 Creatinine 1.0 Creat Clearance w eGFR > 60 POC Glucometer 275 Random Glucose 265 H Calcium 8.2 L Phosphorus 4.0 Magnesium 2.1 05/09/18 05/09/18 05/09/18 12:00 15:38 17:00 WBC RBC Hgb Hct MCV MCH MCHC RDW Plt Count MPV Sodium 134 L Potassium 4.2 Chloride 100 Carbon Dioxide 27 Anion Gap 7 L BUN 14 Creatinine 1.0 Creat Clearance w eGFR > 60 POC Glucometer 329 346 Random Glucose 313 H* Calcium 8.1 L Phosphorus Magnesium 05/09/18 17:33 WBC RBC Hgb Hct MCV MCH MCHC RDW Plt Count MPV Sodium Potassium Chloride Carbon Dioxide Anion Gap BUN Creatinine Creat Clearance w eGFR POC Glucometer 308 Random Glucose Calcium Phosphorus Magnesium HOSPITAL COURSE: Date of Admission:05/08/18 Date of Discharge: 05/09/18 Patient is a 33 year old female with history of HTN, DM, HLD, AAA repaired 2016 presents with complaint of chest pian. Troponins trended down from 0.07 to 0.06. Cardiology consult ruled out MT. She was started on Amlodipine, and Metoprolol. Lisinoporil continued. She was put on ISS for DM. GI consult discussed starting Ranitidine 150mg daily, and barium swallow as outpatient. ENT evaluation discussed likely viral syndrome. Patient blood sugar was elevated and she did not want to start insulin, so Januvia was added to her medication regimen. Instructed to measure blood glucose at least 3 times daily, and keep log of readings. She was provided consult for Endocrinologsit, Weight loss specialist, GI, ENT, cardiology, and primary care physician. Minutes to complete discharge: 45 Discharge Summary Reason For Visit: ELEVATED TROPONIN 1LEVEL/CHEST PAIN @ RES Condition: Stable - Instructions Diet, Activity, Other Instructions: You were admitted to the hospital for chest and throat pain. Your EKG showed no signs of heart attack The Academic Affairs Dean (Dr. Del Cid) evaluated you and will begin medications metoprolol 50mg twice a day, and Lisinopril 10mg daily. You will follow up with him as outpatient. The ENT physician evaluated you, and believes your symptoms are likely due to viral syndrome. You will follow up as an outpatient The system validation engineer (Dr. Humphrey) evaluated you and will begin medication Ranitidine 150mg once a day. You will follow up with him as an outpatient within one week of discharge. You may benefit from a modified barium swallow. We are adding medication Januvia 100mg once daily for your diabetes. Start taking this new medication in addition the metformin 1000mg twice a day. In addition, it is important that you check your blood sugar in the morning before eating/ drinking, before and after meals, and keep record of the numbers. You will call the primary care physician immediately if your blood sugar is above 300. We are providing you referral to Drill Runner (Dr. Serna) who will help further manage your diabetes medications. Follow up within 1 week after discharge and bring your log of blood sugar readings. We also recommend weight loss in improving the diabetes management and quality of life. We are ereferring you to Dr. Moya. Please follow up with your primary care physician within 1 week after discharge and bring your log of blood sugar readings to that appointment as well. Please return to the emergency department with any new or worsening symptoms or concerns, worsening chest pain, palpitations, vomiting, fevers. Referrals: Suman Moya MD [Staff Physician] - 2 Weeks (Follow for weight loss) Noe Colon MD [Staff Physician] - 1 Week Candelario Humphrey DO [Staff Physician] - 1 Week Eduardo Del Cid MD [Staff Physician] - 1 Week Sola Serna MD [Staff Physician] - Marcelo George MD [Staff Physician] - 1 Week Disposition: HOME - Home Medications Comprehensive Discharge Medication List: Ambulatory Orders Amlodipine Besylate 5 mg PO DAILY 30 Days #30 tablet 05/09/18 Amlodipine Besylate [Norvasc -] 5 mg PO DAILY #30 tablet 05/09/18 Amlodipine Besylate [Norvasc -] 5 mg PO DAILY 30 Days #30 tablet 05/09/18 Aspirin Coated [Ecotrin -] 81 mg PO DAILY tablet.ec 05/09/18 Atorvastatin Ca [Lipitor] 40 mg PO HS 05/09/18 Lisinopril 10 mg PO DAILY #30 tablet 05/09/18 Lisinopril [Prinivil] 10 mg PO DAILY 30 Days #30 tablet 05/09/18 Metformin HCl [Glucophage] 1,000 mg BID 05/09/18 Metoprolol Tartrate [Lopressor -] 50 mg PO BID 30 Days #60 tab 05/09/18 Ranitidine Oral Solution [Zantac Oral Solution -] 150 mg PO DAILY #300 ml Sitagliptin Phosphate [Januvia] 100 mg PO DAILY 30 Days #30 tablet 05/09/18 This patient is new to me today: Yes Date on this admission: 05/09/18 Emergency Visit: Yes ED Registration Date: 05/08/18 Care time: The patient presented to the Emergency Department on the above date and was hospitalized for further evaluation of their emergent condition. Critical Care patient: No - Discharge Referral Referred to [facility] Med [facility] No
== END 2018-05-09 19:08 | disposition home or self-care (01) ==
LOC: JER 03:47 → JERBED 08:12 → J4S 21:39
PROVIDERS: ADMIT Internal Medicine; ATTEND Internal Medicine
PROC: 3E0337Z Introduction of Electrolytic and Water Balance Substance into Peripheral Vein, Percutaneous Approach (ICD-10-PCS; 2018-05-08)
PROC: 3E013VG Introduction of Insulin into Subcutaneous Tissue, Percutaneous Approach (ICD-10-PCS; 2018-05-08)
PROC: 3E013GC Introduction of Other Therapeutic Substance into Subcutaneous Tissue, Percutaneous Approach (ICD-10-PCS; 2018-05-08)
PROC: 3E0F7GC Introduction of Other Therapeutic Substance into Respiratory Tract, Via Natural or Artificial Opening (ICD-10-PCS; 2018-05-08)
PROC: 0CJS8ZZ Inspection of Larynx, Via Natural or Artificial Opening Endoscopic (ICD-10-PCS; principal; 2018-05-09)
DX: R07.89 Other chest pain (principal); R77.8 Other specified abnormalities of plasma proteins; R05 Cough; J45.998 Other asthma; I10 Essential (primary) hypertension; E11.9 Type 2 diabetes mellitus without complications; R13.10 Dysphagia, unspecified; E78.5 Hyperlipidemia, unspecified; G47.33 Obstructive sleep apnea (adult) (pediatric); E66.9 Obesity, unspecified; Z68.41 Body mass index [BMI] 40.0-44.9, adult; Z79.4 Long term (current) use of insulin; Z86.79 Personal history of other diseases of the circulatory system; I24.8 Other forms of acute ischemic heart disease; J02.9 Acute pharyngitis, unspecified
CPT/HCPCS: 31575; 36415; 71045-TC-FY; 71275-TC; 80048; 80053; 81003; 81015; 82550; 82553; 82947; 82962; 83735; 83880; 84100; 84484; 84703; 85025; 85027; 93005; 93010; 93306-TC; 94640; 96372; 99285-25; G0378; J7620

== ENCOUNTER 2019-02-08 21:28 | Emergency (ER) | payer OTHER ==
[2019-02-08 22:01] VITALS: BMI 45.4
--- NOTE | 2019-02-08 22:33 | PDOC ---
History of Present Illness - General Chief Complaint: Vaginal Bleeding Stated Complaint: Miscarriage Time Seen by Provider: 02/08/19 22:31 History Source: Patient - History of Present Illness Initial Comments: 02/08/19 23:56 Ms. Rai is a 34 y/o woman with hx of diabetes, hypertension, iron deficiency anemia presenting one week s/p medically induced due to non- viable with weakness and near-syncope earlier today. She reports being at a picnic and, while attempting to stand up, becoming lightheaded and feeling "like [she] was going to pass out". She reports weakness ongoing since her on the at [place]. She reports shortness of breath on exertion as well as palpitations on exertion. She reports mild bleeding daily since the procedure. She reports that during her stay at [place], the medication that she took to pass the remains did not take effect immediately, necessitation four doses. She is unsure which medication she was given at that time. She did not have a D&C after consultation with her Ob. She reports that during her hospital stay she was told that her hemoglobin was low enough to "almost" need a blood transfusion, but that she did not receive one at that time. She also reports that she has been unable to fill her prescription for insulin due to high costs of the Humalin and is concerned for her blood sugar. Finally, she reports numbness down her R leg that has not resolved since it's onset two days ago. PERC - 2 Wells - 3 Past History - Past Medical History Allergies/Adverse Reactions: Allergies Allergy/AdvReac Type Severity Reaction Status Date / Time No Known Allergies Allergy Verified 02/08/19 21:50 Home Medications: Ambulatory Orders Amlodipine Besylate 5 mg PO DAILY 30 Days #30 tablet 05/09/18 Amlodipine Besylate [Norvasc -] 5 mg PO DAILY #30 tablet 05/09/18 Amlodipine Besylate [Norvasc -] 5 mg PO DAILY 30 Days #30 tablet 05/09/18 Aspirin Coated [Ecotrin -] 81 mg PO DAILY tablet.ec 05/09/18 Atorvastatin Ca [Lipitor] 40 mg PO HS 05/09/18 Lisinopril 10 mg PO DAILY #30 tablet 05/09/18 Lisinopril [Prinivil] 10 mg PO DAILY 30 Days #30 tablet 05/09/18 Metformin HCl [Glucophage] 1,000 mg BID 05/09/18 Metoprolol Tartrate [Lopressor -] 50 mg PO BID 30 Days #60 tab 05/09/18 Ranitidine Oral Solution [Zantac Oral Solution -] 150 mg PO DAILY #300 ml Sitagliptin Phosphate [Januvia] 100 mg PO DAILY 30 Days #30 tablet 05/09/18 Anemia: Yes Asthma: No Cancer: No Cardiac Disorders: No CVA: No COPD: No CHF: No DVT: No Dementia: No Diabetes: Yes (IDDM) Dialysis: No GI Disorders: No Disorders: No HTN: Yes Hypercholesterolemia: No Liver Disease: No Seizures: No Thyroid Disease: No - Surgical History Abdominal Surgery: No Appendectomy: No Cardiac Surgery: Yes (aaa repair 2015) Cholecystectomy: No Lung Surgery: No Neurologic Surgery: No Orthopedic Surgery: No - Immunization History Immunization Up to Date: Yes - Suicide/Smoking/Psychosocial Hx Smoking Status: No Smoking History: Never smoked Have you smoked in the past 12 months: No Number of Cigarettes Smoked Daily: 0 Information on smoking cessation initiated: No Hx Alcohol Use: Yes (occasional) Drug/Substance Use Hx: No Substance Use Type: Alcohol Hx Substance Use Treatment: No *Physical Exam - Vital Signs Last Vital Signs Temp Pulse Resp BP Pulse Ox 98.5 F 100 H 18 143/83 100 02/08/19 21:41 02/08/19 21:41 02/08/19 21:41 02/08/19 21:41 02/08/19 21:41 Medical Decision Making - Medical Decision Making 02/09/19 00:06 34 y/o F with hx diabetes, recent due to non-viable , p/w near syncope today after several days of weakness and exertional shortness of breath and palpitations, tachycardic. Differential for her includes blood loss anemia, hyperglycemia due to being unable to fill her insulin, and unable to r/ o PE at this time. Plan for admission to hospital, likely CT for evaluate possible PE as well as remains within the uterus.
--- NOTE | 2019-02-08 23:48 | PDOC ---
*Physical Exam - Vital Signs Last Vital Signs Temp Pulse Resp BP Pulse Ox 98.5 F 100 H 18 143/83 100 02/08/19 21:41 02/08/19 21:41 02/08/19 21:41 02/08/19 21:41 02/08/19 21:41 ED Treatment Course - LABORATORY CBC & Chemistry Diagram: 02/08/19 23:58 02/08/19 23:58 Medical Decision Making - Medical Decision Making 02/08/19 23:[address] Meyers. Patient is a 34 yo female w/ pmh of DM, HTN, iron deficiency anemia w/ known known non-viable . Patient evaluated previously at [facility]; found to be 9 weeks 01/23 w/ miscarriage. Was admitted to medical service and last H/H 01/30 was 13. Offered D&C 02/05 however refused. Patient presents today w/ weakness and near-syncope. Reports she has had daily bleeding since admission to [facility]. Currently pending US and CT for source of bleeding and PE rule-out. Patient also noted to be anemic as below. 02/09/19 02:38 US significant for 4.1 cm R ovarian cyst only, likely luteal. 02/09/19 04:30 CT cannot exclude small PE. Also fat containing ventral hernia noted. Patient will be transfused 1 unit PRBC's and admitted for further PE evaluation and OB/ AVIONICS SYSTEM ENGINEER consultation. 02/09/19 05:24 Patient reporting improvement of symptoms. Decision made to withhold PRBC's as symptoms improving. Strict return precautions discussed. Patient will follow-up outpatient with [facility] Monday and return if any changes. Discharging to home. Laboratory Results - last 24 hr 02/08/19 02/08/19 02/08/19 23:58 23:58 23:58 WBC 8.0 RBC 3.08 L Hgb 8.8 L Hct 27.3 L D MCV 88.6 MCH 28.7 MCHC 32.3 RDW 14.0 D Plt Count 326 D MPV 7.9 Absolute Neuts (auto) 5.5 Neutrophils % 69.2 Lymphocytes % 22.9 Monocytes % 6.1 Eosinophils % 1.4 Basophils % 0.4 Nucleated RBC % 0 PT with INR 12.60 INR 1.07 PTT (Actin FS) 29.9 Sodium 136 Potassium 4.2 Chloride 103 Carbon Dioxide 25 Anion Gap 8 BUN 19.6 H Creatinine 1.2 Est GFR (CKD-EPI)AfAm 67.33 Est GFR (CKD-EPI)NonAf 58.09 Random Glucose 297 H Calcium 8.4 L Total Bilirubin 0.3 AST 20 ALT 21 Alkaline Phosphatase 116 Creatine Kinase 228 H Creatine Kinase Index 0.4 CK-MB (CK-2) 1.1 Troponin I < 0.02 Total Protein 7.0 Albumin 2.9 L *DC/Admit/Observation/Transfer Diagnosis at time of Disposition: Pre-syncope, Weakness Anemia Qualifiers: Anemia type: unspecified type Qualified Code(s): D64.9 - Anemia, unspecified - Discharge Dispostion Disposition: HOME Decision to Admit order: Yes - Referrals - Patient Instructions - Post Discharge Activity
[2019-02-09 00:15] LABS: BASO % 0.4 % (0-2.0); EOS % 1.4 % (0-4.5); HEMATOCRIT 27.3 % (32.4-45.2); HEMOGLOBIN 8.8 GM/dL (10.7-15.3); LYMPH % 22.9 % (8-40); MCH 28.7 pg (25.7-33.7); MCHC 32.3 g/dl (32.0-36.0); MEAN CELL VOLUME 88.6 fl (80-96); MEAN PLT VOLUME 7.9 fl (7.5-11.1); MONO % 6.1 % (3.8-10.2); NEUT % 69.2 % (42.8-82.8); PLATELET COUNT 326 K/MM3 (134-434); RBC 3.08 M/mm3 (3.60-5.2)
[2019-02-09 00:33] LABS: INR 1.07 (0.83-1.09); PROTHROMBIN TIME (PATIENT) 12.6 SEC (9.7-13.0)
[2019-02-09 00:36] LABS: ACTIVATED PTT 29.9 SECONDS (25.2-36.5)
[2019-02-09 00:45] LABS: ALBUMIN 2.9 g/dl (3.4-5.0); ALK PHOS 116 U/L (45-117); ANION GAP 8 MMOL/L (8-16); BILIRUBIN,TOTAL 0.3 mg/dL (0.2-1); BLOOD UREA NITROGEN 19.6 mg/dL (7-18); CALCIUM 8.4 mg/dL (8.5-10.1); CHLORIDE 103 mmol/L (98-107); CO2 25 mmol/L (21-32); CREATININE 1.2 mg/dL (0.55-1.3); GLUCOSE,RANDOM 297 mg/dL (74-106); POTASSIUM 4.2 mmol/L (3.5-5.1); SGOT/AST 20 U/L (15-37); SGPT/ALT 21 U/L (13-61); SODIUM 136 mmol/L (136-145)
--- NOTE | 2019-02-09 01:56 | PDOC ---
Documentation entered by Carolyn Bello SCRIBE, acting as scribe for Alfred Valle MD. Alfred Valle MD: This documentation has been prepared by the Ace myers Sammi, SCRIBE, under my direction and personally reviewed by me in its entirety. I confirm that the documentation accurately reflects all work, treatment, procedures, and medical decision making performed by me. Attending Attestation - Resident Resident Name: Alex Meyers - ED Attending Attestation I have performed the following: I have examined & evaluated the patient, The case was reviewed & discussed with the resident, I agree w/resident's findings & plan, Exceptions are as noted - HPI HPI: 02/08/19 23:49 The patient is a 34 year old female, with a significant PMH of DM, HTN, AAA, anemia, presents to the emergency department for evaluation of abnormal vaginal bleeding s/p on 01/23. The patient reports she had a medication induced for an 9 week miscarriage on 01/23, where only a portion of the fetus had passed. She states she has been experiencing vaginal bleeding and lightheadedness since then. The patient was evaluated at [facility] 3 days ago for abnormal bleeding and high blood pressure with syncopal episode. The patient also reports several episodes today of weakness, lightheadedness, and the feeling as if she will pass out. She complains of SOB and palpitations on exertion. The patient expresses concern of miscarriage, anemia, and high blood pressure. - Physicial Exam PE: 02/08/19 23:49 GENERAL: Obese. Awake, alert, and fully oriented, in no acute distress HEAD: No signs of trauma EYES: PERRLA, EOMI, sclera anicteric, conjunctiva clear ENT: Auricles normal inspection, hearing grossly normal, nares patent, oropharynx clear without exudates. Moist mucosa NECK: Normal ROM, supple, no lymphadenopathy, JVD, or masses LUNGS: Breath sounds equal, clear to auscultation bilaterally. No wheezes, and no crackles HEART: (+)small dystolic murmur. Regular rate and rhythm, normal S1 and S2, rubs or gallops ABDOMEN: Soft, nontender, normoactive bowel sounds. No guarding, no rebound. No masses EXTERNAL VAGINAL: No obvious bleeding or clots. EXTREMITIES: Normal range of motion, no edema. No clubbing or cyanosis. No cords, erythema, or tenderness NEUROLOGICAL: Cranial nerves II through XII grossly intact. Normal speech. SKIN: Warm, Dry, normal turgor, no rashes or lesions noted. - Medical Decision Making 02/09/19 01:53 A portion of this note was documented by scribe services under my direction. I have reviewed the details of the note, within reason, and agree with the documentation with the following case summary and management plan written by me. Patient treated in the ED. Nursing notes are reviewed and incorporated into the medical decision-making. Vital signs reviewed. Peripheral IV access obtained by the nurse, laboratory studies are drawn and sent, reviewed and interpreted by myself. Vital Signs Temp Pulse Resp BP Pulse Ox 98.5 F 100 H 22 H 129/89 98 02/08/19 21:41 02/09/19 01:18 02/09/19 01:18 02/09/19 01:18 02/09/19 01:18 34-year-old female patient presents with near-syncope. The patient has a complex history where approximately one and a half weeks ago, the patient was admit her for hypertensive urgency. The patient was treated eventually discharge. However, during this time, the patient has also been carrying and unviable . After speaking with [facility], the patient had hemoglobin approximately 13 on January 30 at that time. The patient had a follow-up with [facility] emergency department 3 days ago where she is evaluated by the grain sacker. She was offered instrumentation and D&C but declined at that time and taken medical management to help expulse out the fetus. The patient continues to have slight bleeding. However, since her discharge, patient has been endorsing uterine cramping but severe lightheadedness and shortness of breath. Patient denies chest pain. Denies recent illnesses. At this time, the patient's hemoglobin is in the eighth. We'll obtain a transvaginal ultrasound and a CAT scan abdomen and pelvis. Anemia could be the cause of the symptoms. However, given the patient's other history, we'll need to obtain a CAT scan the chest to rule out pulmonary embolism. We'll also obtain a troponin and EKG as well. Given the overall deconditioned stated the patient, the patient will most likely be admitted to the hospital for further evaluation and management. 02/09/19 04:22 CBC, BMP 02/08/19 23:58 02/08/19 23:58 CMP Sodium 136 mmol/L (136-145) 02/08/19 23:58 Potassium 4.2 mmol/L (3.5-5.1) 02/08/19 23:58 Chloride 103 mmol/L (98-107) 02/08/19 23:58 Carbon Dioxide 25 mmol/L (21-32) 02/08/19 23:58 Anion Gap 8 MMOL/L (8-16) 02/08/19 23:58 BUN 19.6 mg/dL (7-18) H 02/08/19 23:58 Creatinine 1.2 mg/dL (0.55-1.3) 02/08/19 23:58 Est GFR (CKD-EPI)AfAm 67.33 02/08/19 23:58 Est GFR (CKD-EPI)NonAf 58.09 02/08/19 23:58 Random Glucose 297 mg/dL (74-106) H 02/08/19 23:58 Calcium 8.4 mg/dL (8.5-10.1) L 02/08/19 23:58 Total Bilirubin 0.3 mg/dL (0.2-1) 02/08/19 23:58 AST 20 U/L (15-37) 02/08/19 23:58 ALT 21 U/L (13-61) 02/08/19 23:58 Alkaline Phosphatase 116 U/L (45-117) 02/08/19 23:58 Creatine Kinase 228 U/L (26-192) H 02/08/19 23:58 Creatine Kinase Index 0.4 % (0.0-5.0) 02/08/19 23:58 CK-MB (CK-2) 1.1 ng/mL (0.5-3.6) 02/08/19 23:58 Troponin I < 0.02 ng/ml (0.00-0.05) 02/08/19 23:58 Total Protein 7.0 g/dl (6.4-8.2) 02/08/19 23:58 Albumin 2.9 g/dl (3.4-5.0) L 02/08/19 23:58 02/09/19 05:24 Transvaginal ultrasound: Probable retained products of conception. 4.1 cm right ovarian cyst, likely luteum, without torsion or significant free fluid. CT scan shows: Suboptimal opacitification of the pulmonary arteries. Small pulmonary embolic cannot be exluded on this exam. No evidence of acute intrathoracic pathology. Moderate-sized multiloculated fat-containing ventral hernia. No definitie acute pathology in the abdomen and pelvis. I have spoken to the patient regards to the findings. The patient's hemoglobin is 8.8 which is certainly less than 13. The patient reported that she had significant amount of vaginal bleeding after the medications. It is possible that the vaginal bleeding is the source of the anemia. However, at this time, will not transfuse the patient. Patient does report feeling better and wanted to go home. I did tell the patient in regards to the imaging findings including the right ovarian cyst as well as retained products of conception. Patient has a follow-up appointment with [facility]. The CAT scan the chest does not seem to find anything obvious but had a suboptimal view and could not effectively rule out a small pulmonary embolism. However, I have low pretest possibility for pulmonary embolism. I did offer the option to observe the patient and admit for repeat CAT scan but the patient requests to go home with her . I did give a copy of the CAT scan to the patient to bring to her doctors. If the symptoms worsen including worsening chest pain short of breath, the patient should return to the ER for an evaluation. Otherwise she has an appointment this Monday. 02/09/19 05:32 *DC/Admit/Observation/Transfer Diagnosis at time of Disposition: Pre-syncope, Weakness Anemia Qualifiers: Anemia type: unspecified type Qualified Code(s): D64.9 - Anemia, unspecified - Discharge Dispostion Disposition: HOME Condition at time of disposition: Stable Decision to Admit order: No - Referrals - Patient Instructions Printed Discharge Instructions: DI for Shortness of Breath, Anemia in Additional Instructions: You have been given a copy of your workup here numerous department. I suspect that you were weakness is likely secondary to your anemia. Her blood counts here is lower than when it was at [facility]. However, it is very important that she follow-up with her doctor. We will need further workup in regards his better. This could have been from your vaginal bleeding. If he noticed that he been feeling weaker or your symptoms worsen, return to the ER. Go to your doctor splint on Monday. After CAT scan does not show any obvious findings but does show some suboptimal images. So we could not effectively rule out pulmonary embolism. While we do not have a very high suspicion for blood clot, it is important that you do follow with her doctor regards these findings. He or she may determine that you may need a repeat CAT scan. If he do feel chest pain or shortness of breath that worsens, please return to the ER. - Post Discharge Activity Heart Score/ECG Review #1 ECG reviewed & interpreted by me at: 00:00 02/09/19 01:56 NSR 97, nnonspcific T wave abnormality, no std/martin, QTC 439 msec
[2019-02-09 06:56] VITALS: BP 135/68; PULSE 82; TEMP 98.9
--- NOTE | 2019-02-10 13:35 | EKG ---
Test Reason : Blood Pressure : / mmHG Vent. Rate : 097 BPM Atrial Rate : 097 BPM P-R Int : 148 ms QRS Dur : 076 ms QT Int : 346 ms P-R-T Axes : 046 036 024 degrees QTc Int : 439 ms NORMAL SINUS RHYTHM LEFT ATRIAL ENLARGEMENT NONSPECIFIC T WAVE ABNORMALITY ABNORMAL ECG WHEN COMPARED WITH ECG OF 08-MAY-2018 06:12, NO SIGNIFICANT CHANGE WAS FOUND Confirmed by MD FRANCISCO, RHIANNA ([id number]) on 02/10/2019 1:34:37 PM Referred By: Confirmed By:RHIANNA SINGH MD
== END 2019-02-09 05:50 | disposition home or self-care (01) ==
LOC: JER 21:28
DX: D64.9 Anemia, unspecified (principal); I10 Essential (primary) hypertension; E11.9 Type 2 diabetes mellitus without complications; Z79.84 Long term (current) use of oral hypoglycemic drugs; N83.201 Unspecified ovarian cyst, right side; Z98.890 Other specified postprocedural states
CPT/HCPCS: 36415; 71275-TC; 74177-TC; 76830-TC; 80053; 82550; 82553; 84484; 85025; 85610; 85730; 86850; 86870; 86900; 86901; 86902; 93005; 93010; 99284-25

== ENCOUNTER 2019-02-15 16:02 | Observation (INO) | payer OTHER ==
--- NOTE | 2019-02-15 16:24 | PDOC ---
Rapid Medical Evaluation Time Seen by Provider: 02/15/19 16:21 Medical Evaluation: Allergies Allergy/AdvReac Type Severity Reaction Status Date / Time No Known Allergies Allergy Verified 02/08/19 21:50 02/15/19 16:21 I have performed a brief in-person evaluation of this patient. The patient presents with a chief complaint of: "I'm having a miscarriage." LMP - "well, i think 4 1/2 months ago." Pertinent physical exam findings: deferred I have ordered the following: labs, urine, tylenol, sono The patient will proceed to the ED for further evaluation. 02/15/19 16:23 Discharge Disposition - Diagnosis Vaginal bleeding - Referrals - Patient Instructions - Post Discharge Activity
[2019-02-15 16:25] VITALS: BMI 44.9
--- NOTE | 2019-02-15 16:53 | PDOC ---
History of Present Illness - General Chief Complaint: Vaginal Bleeding Stated Complaint: 8 TO 16 WKS/ BLEEDING Time Seen by Provider: 02/15/19 16:21 History Source: Patient Exam Limitations: No Limitations - History of Present Illness Initial Comments: Pt is a 34 yo F, with PMH of DM, HTN, Fe def anemia, aortoiliac stent, who is presenting with complaints of fatigue, SOB with exertion, continued vaginal bleeding and syncope 2/2 medically induced on 01/30/19 (at [facility]). Pt states since the , she has had continued passage of large clots, and multiple syncopal episodes per day. Pt was seen at on 01/09, with negative CT PE study, CT abd/pelvis, and US showing retained products. Pt went to [facility] on 01/12 and had a transfusion of 2 units with hemoglobin in 6s, per patient. Pt states she has continued to pass clots, and had 2 syncopal episodes since last night, but denies hitting her head. Pt complains currently of lower abdominal cramping with bleeding (bleeding through 3 pads per day). Pt denies any fevers/ chills, headache, vision changes, chest pain, palpitations, nausea/vomiting, urinary symptoms, diarrhea/constipation, or leg swelling. Allergies: NKDA PCP: Dr. Aaron Vascular: Dr. Huntley ([facility]) Social: Pt denies any cigarette, alcohol, or drug use. Pt denies any recent travel or sick contacts. Surgical: aortoiliac stent (2013) Family: no relevant history. 02/15/19 19:58 Past History - Travel Traveled outside of the country in the last 30 days: No Close contact w/someone who was outside of country & ill: No - Past Medical History Allergies/Adverse Reactions: Allergies Allergy/AdvReac Type Severity Reaction Status Date / Time No Known Allergies Allergy Verified 02/15/19 16:25 Home Medications: Ambulatory Orders Labetalol HCl [Normodyne -] 200 mg PO BID 02/09/19 Metformin HCl [Glucophage] 500 mg PO BID 02/09/19 Nifedipine ER [Procardia Xl -] 90 mg PO DAILY 02/09/19 Anemia: Yes Asthma: No Cancer: No Cardiac Disorders: No CVA: No COPD: No CHF: No DVT: No Dementia: No Diabetes: Yes (IDDM) Dialysis: No GI Disorders: No Disorders: No HTN: Yes Hypercholesterolemia: No Liver Disease: No Seizures: No Thyroid Disease: No - Surgical History Abdominal Surgery: No Appendectomy: No Cardiac Surgery: Yes (aaa repair 2016) Cholecystectomy: No Lung Surgery: No Neurologic Surgery: No Orthopedic Surgery: No - Reproductive History Cervical CA: No Dysfunctional Uterine Bleeding: No Ectopic : No Endometrial CA: No Polycystic Ovaries: No Tubal Ligation: No - Immunization History Immunization Up to Date: Yes - Suicide/Smoking/Psychosocial Hx Smoking Status: No Smoking History: Never smoked Have you smoked in the past 12 months: No Number of Cigarettes Smoked Daily: 0 Hx Alcohol Use: No Drug/Substance Use Hx: No Substance Use Type: Alcohol Hx Substance Use Treatment: No Abd/GI Specific PMHX - Complaint Specific PMHX Colitis: No Diverticulitis: No Gall Bladder Disease: No GERD: No Hepatitis: No Irritable Bowel Synd (IBS): No Pancreatitis: No GI Ulcer Disease: No Review of Systems - Review of Systems Able to Perform ROS?: Yes Is the patient limited Colombian proficient: No Constitutional: Yes: See HPI, Malaise, Weakness, Weight Stable. No: Chills, Diaphoresis, Fever, Loss of Appetite HEENTM: No: Blurred Vision, Double Vision, Nose Congestion, Throat Pain, Throat Swelling, Difficulty Swallowing Respiratory: Yes: See HPI, Shortness of Breath, SOB with Exertion. No: Cough, Orthopnea, SOB at Rest, Wheezing, Productive cough, Hemoptysis Cardiac (ROS): Yes: See HPI, Lightheadedness, Syncope. No: Chest Pain, Edema, Irregular Heart Rate, Palpitations, Chest Tightness ABD/GI: Yes: Abdominal cramping (pelvic cramping with bleeding). No: Constipated, Diarrhea, Nausea, Poor Appetite, Poor Fluid Intake, Vomiting : No: Burning, Dysuria, Frequency, Flank Pain, Pain, Urgency Musculoskeletal: No: Back Pain, Joint Pain, Muscle Pain, Muscle Weakness Integumentary: No: Rash Neurological: Yes: Headache. No: Numbness, Paresthesia, Seizure, Weakness, Unsteady Gait, Dizziness Psychiatric: No: Sleep Pattern Change, Change in Appetite Endocrine: No: Increased Urine, Change in Weight Hematologic/Lymphatic: Yes: Anemia, Other (Passing vaginal blood clots; AAA repair). No: Blood Clots, Easy Bleeding, Easy Bruising All Other Systems: Reviewed and Negative *Physical Exam - Vital Signs Last Vital Signs Temp Pulse Resp BP Pulse Ox 98.6 F 100 H 16 120/76 100 02/15/19 16:22 02/15/19 16:22 02/15/19 16:22 02/15/19 16:22 02/15/19 16:22 - Physical Exam Comments: Vitals stable, pt afebrile, mild tachycardia (HR low 100s). Pt in NAD, morbidly obese body habitus. Pt alert and oriented x3. 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 No cerebellar findings. No midline spinal tenderness, step-offs, or crepitus. Head normocephalic, atraumatic. Eyes PERRLA, EOMI. Oropharynx without erythema or exudates, no LAD b/l. No nasal congestion, hearing intact. Clear heart sounds, S1/S2, no JVD, b/l pedal edema, or heart murmur. Clear lung sounds, no respiratory distress, wheezes, crackles, or accessory muscle use. No abdominal or CVA tenderness to palpation, no rebound, no guarding. Abdomen soft, non-distended, and with normoactive bowel sounds. B/l adnexal TTP. No CMT. Cervix open to fingertip. Passage of small amount of blood in vaginal canal with physiologic discharge, no pooling. Skin without jaundice or rash. 02/15/19 19:50 ED Treatment Course - LABORATORY CBC & Chemistry Diagram: 02/15/19 17:26 02/15/19 17:26 Medical Decision Making - Medical Decision Making Pt was seen at bedside, also will be seen by attending Dr. Andrews. Pt presenting with complaints of fatigue, SOB with exertion, continued vaginal bleeding and syncope 2/2 medically induced on 01/30/19 (at [facility]). Pt states since the , she has had continued passage of large clots, and multiple syncopal episodes per day. Pt was seen at on 01/09, with negative CT PE study, CT abd/pelvis, and US showing retained products. Pt went to [facility] on 01/12 and had a transfusion of 2 units with hemoglobin in 6s, per patient. Pt states she has continued to pass clots, and had 2 syncopal episodes since last night, but denies hitting her head. Pt complains currently of lower abdominal cramping with bleeding (bleeding through 3 pads per day). Pt denies any fevers/ chills, headache, vision changes, chest pain, palpitations, nausea/vomiting, urinary symptoms, diarrhea/constipation, or leg swelling. Considering continued anemia vs electrolyte imbalances vs ACS/arrhythmia vs additional /ectopic/ovarian cyst rupture/torsion. Unlikely PE as pt had negative PE study done a few days ago, and is not hypoxic. Ordered work-up including CBC, CMP, beta-hcg, UA, urine culture, EKG, cardiac profile, transvaginal US (eval for retained products). Provided 1 L IV NS and 975 mg PO tylenol for improvement of pain and potential hypovolemia. Will continue to reassess pt and monitor for symptomatic improvement. 02/15/19 19:52 CBC: H/H 05/03 -- stable and not needed for transfusion at this time CMP: BUN 12/Cr 1.5 -- providing IVF Trop <.02 Beta 76 Pt was taken for transvaginal US. Pt signed out to night team. 02/15/19 19:59 *DC/Admit/Observation/Transfer Diagnosis at time of Disposition: Vaginal bleeding, OLIVIA (acute kidney injury) Syncope Qualifiers: Syncope type: unspecified Qualified Code(s): R55 - Syncope and collapse - Discharge Dispostion Condition at time of disposition: Stable - Referrals - Patient Instructions - Post Discharge Activity
[2019-02-15] MEDS ORDERED: ACETAMINOPHEN 325 MG TABLET (FP) PO ONE (17:31)
[2019-02-15] MEDS ORDERED: SODIUM CHLORIDE 1,000 ML IV STA (17:31)
[2019-02-15 17:59] LABS: BASO % 0.6 % (0-2.0); EOS % 1.6 % (0-4.5); HEMATOCRIT 27.8 % (32.4-45.2); HEMOGLOBIN 9.1 GM/dL (10.7-15.3); LYMPH % 20.1 % (8-40); MCH 29.2 pg (25.7-33.7); MCHC 32.7 g/dl (32.0-36.0); MEAN PLT VOLUME 7.9 fl (7.5-11.1); MONO % 3.5 % (3.8-10.2); NEUT % 74.2 % (42.8-82.8); PLATELET COUNT 360 K/MM3 (134-434); RBC 3.12 M/mm3 (3.60-5.2); RDW 14.5 % (11.6-15.6); WHITE BLOOD COUNT 7.9 K/mm3 (4.0-10.0)
[2019-02-15 18:11] LABS: INR 1.13 (0.83-1.09); PROTHROMBIN TIME (PATIENT) 13.3 SEC (9.7-13.0)
[2019-02-15 18:28] LABS: ALBUMIN 3.2 g/dl (3.4-5.0); ALK PHOS 126 U/L (45-117); ANION GAP 9 MMOL/L (8-16); BILIRUBIN,TOTAL 0.3 mg/dL (0.2-1); BLOOD UREA NITROGEN 12.7 mg/dL (7-18); CALCIUM 8.8 mg/dL (8.5-10.1); CHLORIDE 98 mmol/L (98-107); CO2 27 mmol/L (21-32); CREATININE 1.5 mg/dL (0.55-1.3); GLUCOSE,RANDOM 296 mg/dL (74-106); POTASSIUM 4.3 mmol/L (3.5-5.1); SGOT/AST 26 U/L (15-37); SGPT/ALT 27 U/L (13-61); SODIUM 134 mmol/L (136-145); TOT PROT 7.2 g/dl (6.4-8.2)
[2019-02-15 18:50] LABS: EPI CELLS 7.6 /HPF (0-5/HPF); HYALINE CASTS 21 /lpf (0-8); URINE APPEARANCE CLOUDY; URINE BACTERIA 38.6 /hpf (NEGATIVE); URINE BILIRUBIN 1+ (NEGATIVE); URINE COLOR DK YELLOW; URINE GLUCOSE (UA) NEGATIVE (NEGATIVE); URINE KETONE TRACE (NEGATIVE); URINE LEUK ESTERASE 1+ (NEGATIVE); URINE NITRITE NEGATIVE (NEGATIVE); URINE PROTEIN 3+ (NEGATIVE); URINE RBC 107 /hpf (0-4); URINE UROBILINOGEN 0.2 mg/dL (0.2-1.0); URINE WBC 15 /hpf (0-5)
--- NOTE | 2019-02-15 20:00 | PDOC ---
Documentation entered by Kendy Sawant SCRIBE, acting as scribe for Maria Victoria Andrews MD. Maria Victoria Andrews MD: This documentation has been prepared by the Savana myers Xhesika, SCRIBE, under my direction and personally reviewed by me in its entirety. I confirm that the documentation accurately reflects all work, treatment, procedures, and medical decision making performed by me. Attending Attestation - Resident Resident Name: Brandee Florence - [facility] HPI: 02/15/19 18:21 The patient is a 34 year old female with a significant medical history of IDDM, HTN, AAA, and Anemia who present to the ED with 15 days of vaginal bleeding. The patient reports she had a medical induced for an 9 week miscarriage on 01/23, was admitted for heavy bleeding and when she was discharged home, the patient noticed a reoccurrence of heavy bleeding with clots. Patient states she currently has been experiencing intermittent vaginal bleeding with clots, lightheadedness, blurred vision, SOB, nausea, headache and 2 syncopal episodes today. The patient states she had an appointment with her OB /TANK ASSEMBLER today, however, she was not able to make it due to her syncopal episodes. The patient notes her LMP was roughly 4 1/2 months ago. The patient denies chest pain, headache and dizziness. Denies fever, chills, nausea, vomiting, diarrhea and constipation. Denies dysuria, frequency, urgency and hematuria. Allergies: NKA Past surgical history: aaa repair 2016 - Physicial Exam PE: 02/15/19 18:52 GENERAL: Awake, alert, and fully oriented, in no acute distress HEAD: No signs of trauma EYES: PERRLA, EOMI, sclera anicteric, conjunctiva clear ENT: Auricles normal inspection, hearing grossly normal, nares patent, oropharynx clear without exudates. Moist mucosa NECK: Normal ROM, supple, no lymphadenopathy, JVD, or masses LUNGS: Breath sounds equal, clear to auscultation bilaterally. No wheezes, and no crackles HEART: Regular rate and rhythm, normal S1 and S2, no murmurs, rubs or gallops ABDOMEN: Soft, nontender, normoactive bowel sounds. No guarding, no rebound. No masses EXTREMITIES: Normal range of motion, no edema. No clubbing or cyanosis. No cords, erythema, or tenderness NEUROLOGICAL: Cranial nerves II through XII grossly intact. Normal speech, normal gait SKIN: Warm, Dry, normal turgor, no rashes or lesions noted. - Medical Decision Making 02/15/19 19:57 Pt presents to thE Ed complaining of multiple episodes of syncope. History of persistent heavy vaginal bleeding after medical three weeks ago, and of AAA post repair with poor BP control. No signficant anemia on our labs. Given that the patient is continuing to have syncope despite adequate Hgb, and that she has had multiple episodes of syncope, will admit to medicine for syncope work up to rule out cardiac causes of syncope.
--- NOTE | 2019-02-15 22:25 | PDOC ---
*Physical Exam - Vital Signs Last Vital Signs Temp Pulse Resp BP Pulse Ox 98.6 F 100 H 16 120/76 100 02/15/19 16:22 02/15/19 16:22 02/15/19 16:22 02/15/19 16:22 02/15/19 16:22 ED Treatment Course - LABORATORY CBC & Chemistry Diagram: 02/15/19 17:26 02/15/19 17:26 - ADDITIONAL ORDERS Additional order review: Laboratory Results 02/15/19 02/15/19 02/15/19 18:33 17:26 17:26 PT with INR 13.30 H INR 1.13 H Sodium 134 L Potassium 4.3 Chloride 98 Carbon Dioxide 27 Anion Gap 9 BUN 12.7 Creatinine 1.5 H Est GFR (CKD-EPI)AfAm 51.41 Est GFR (CKD-EPI)NonAf 44.36 Random Glucose 296 H Calcium 8.8 Total Bilirubin 0.3 AST 26 ALT 27 Alkaline Phosphatase 126 H Creatine Kinase 159 Creatine Kinase Index 0.6 CK-MB (CK-2) < 1.0 Troponin I < 0.02 Total Protein 7.2 Albumin 3.2 L Beta HCG, Quant 76.4 Urine Color Dk yellow Urine Appearance Cloudy Urine pH 5.0 Ur Specific [place] 1.024 Urine Protein 3+ H Urine Glucose (UA) Negative Urine Ketones Trace H Urine Blood 3+ H Urine Nitrite Negative Urine Bilirubin 1+ H Urine Urobilinogen 0.2 Ur Leukocyte Esterase 1+ H Urine WBC (Auto) 15 Urine RBC (Auto) 107 Urine Casts (Auto) 21 U Epithel Cells (Auto) 7.6 Urine Bacteria (Auto) 38.6 02/15/19 17:26 RBC 3.12 L MCV 89.0 MCHC 32.7 RDW 14.5 MPV 7.9 Neutrophils % 74.2 Lymphocytes % 20.1 Monocytes % 3.5 L Eosinophils % 1.6 Basophils % 0.6 - Medications Given in the ED: ED Medications Discontinued Medications Generic Name Dose Route Start Last Admin Trade Name Freq PRN Reason Stop Dose Admin Acetaminophen 650 mg 02/15/19 17:31 02/15/19 19:05 Tylenol - PO 02/15/19 17:32 650 mg ONCE ONE Administration Sodium Chloride 1,000 mls @ 1,000 mls/hr 02/15/19 17:31 02/15/19 18:58 Normal Saline - IV 02/15/19 18:30 1,000 mls/hr ASDIR STA Administration Medical Decision Making - Medical Decision Making Patient signed out by Dr. Florence 34yo F with PMH of HTN, DM, aortoiliac stent presenting after two syncopal episodes (her sixth time this month) and with vaginal bleeding. Transfused 2 units at [facility] 4 days ago Hgb 9.1 today TVUS: "Real time examination of the pelvis utilizing the transvaginal probe demonstrates the following: Since prior study dated 02/08/2019, there remains a thickened and irregular endometrium with increased vascularity. This is suspicious for retained products of conception. Clinical correlation is advised. Are also remains a right ovarian cyst measuring 3.6 x 3.4 x 3.5 cm. There is no evidence of adnexal masses or free pelvic fluid collections. IMPRESSION: Thickened and irregular endometrium with increased vascularity suspicious for retained products of conception. No significant change since 2018. " Discussed case with Dr. Yu, sheeter operator regarding vaginal bleeding and suspicion for retained POC's on TVUS. No acute intervention indicated. Need repeat b-hcg for tomorrow morning. If plateaued or increased, he would like to be notified. Plan for admission for multiple syncopal episodes 02/15/19 23:[address] Lucia who accepted patient for admission under Dr. Petit 02/16/19 01:31 *DC/Admit/Observation/Transfer Diagnosis at time of Disposition: Vaginal bleeding, OLIVIA (acute kidney injury) Syncope Qualifiers: Syncope type: unspecified Qualified Code(s): R55 - Syncope and collapse - Discharge Dispostion Condition at time of disposition: Guarded Decision to Admit order: Yes - Referrals - Patient Instructions - Post Discharge Activity
[2019-02-16] MEDS ORDERED: ACETAMINOPHEN 325 MG TABLET (FP) PO PRN ×2 (00:47→17:57)
--- NOTE | 2019-02-16 04:18 | HP ---
CHIEF COMPLAINT: Syncopal episodes PCP: HISTORY OF PRESENT ILLNESS: 34 y.o. obese F PMH medical 3.5 weeks ago, DM, HTN, AAA, RAJ, BIB her friend after multiple syncopal episode with brief periods of forgetfulness, no LOC. She has never experienced a syncopal episode in the past. She is also experiencing vaginal bleeding, saturating about 3 pads per day with passage of large blood clots. She also endorses about 15 days of non-bloody loose stools. Patient states she is also experiencing a headache, SOB , lightheadedness and abdominal cramping. Denies urinary changes, bowel movement changes, chest pain, fevers. She is being admitted to [facility] for workup of syncopal episodes. ER course was notable for: (1) TVUS revealed retained products of conception (2) S/p 1 L NS (3) Hgb 9.1 Recent Travel: Denies PAST MEDICAL HISTORY: as above in HPI PAST SURGICAL HISTORY: C-sxn in 2016, AAA repair in 2016 Social History: Smoking: Smokes hookah a "few times per week" Alcohol: Denies Drugs: Denies Family History: Allergies No Known Allergies Allergy (Verified 02/15/19 16:25) HOME MEDICATIONS: Home Medications Medication Instructions Recorded Labetalol HCl [Normodyne -] 200 mg PO BID 02/09/19 Metformin HCl [Glucophage] 500 mg PO BID 02/09/19 Nifedipine ER [Procardia Xl -] 90 mg PO DAILY 02/09/19 REVIEW OF SYSTEMS CONSTITUTIONAL: Absent: fever, chills, diaphoresis, generalized weakness, malaise, loss of appetite, weight change CARDIOVASCULAR: syncope, tachy to 100 Absent: chest pain, palpitations, lightheadedness, peripheral edema RESPIRATORY: shortness of breath, dyspnea with exertion Absent: cough, orthopnea, wheezing, stridor, hemoptysis GASTROINTESTINAL: abdominal pain, diarrhea, Absent: abdominal distension, nausea, vomiting, constipation, melena, hematochezia GENITOURINARY: Absent: dysuria, frequency, urgency, hesitancy, hematuria, flank pain, genital pain MUSCULOSKELETAL: Absent: myalgia, arthralgia, joint swelling, back pain, neck pain SKIN: Absent: rash, itching, pallor ENDOCRINE: Absent: unexplained weight gain, unexplained weight loss, heat intolerance, cold intolerance NEUROLOGIC: headache Absent: focal weakness or paresthesias, dizziness, unsteady gait, seizure, mental status changes, bladder or bowel incontinence PHYSICAL EXAMINATION Vital Signs - 24 hr 02/15/19 16:22 Temperature 98.6 F Pulse Rate 100 H Respiratory 16 Rate Blood Pressure 120/76 O2 Sat by Pulse 100 Oximetry (%) GENERAL: Awake, alert, and fully oriented, in no acute distress. HEAD: Normal with no signs of trauma. NECK: Normal range of motion, supple. LUNGS: CTABL. No wheezes, and no crackles. No accessory muscle use. HEART: Regular rate and rhythm, normal S1 and S2 without murmurs ABDOMEN: Soft, NTND, normoactive bowel sounds, no masses. EXTR: 2+ pulses b/l UE & LE. NEUROLOGICAL: Sensory intact b/l UE & LE. SKIN: No rashes/ lesions noted Laboratory Results - last 24 hr Laboratory Last Values WBC 7.9 K/mm3 (4.0-10.0) 02/15/19 17: RBC 3.12 M/mm3 (3.60-5.2) L 02/15/19 17:26 Hgb 9.1 GM/dL (10.7-15.3) L 02/15/19 17:26 Hct 27.8 % (32.4-45.2) L 02/15/19 17:26 MCV 89.0 fl (80-96) 02/15/19 17:26 MCH 29.2 pg (25.7-33.7) 02/15/19 17: MCHC 32.7 g/dl (32.0-36.0) 02/15/19 17:26 RDW 14.5 % (11.6-15.6) 02/15/19 17:26 Plt Count 360 K/MM3 (134-434) 02/15/19 17:26 MPV 7.9 fl (7.5-11.1) 02/15/19 17:26 Absolute Neuts (auto) 5.9 K/mm3 (1.5-8.0) 02/15/19 17:26 Neutrophils % 74.2 % (42.8-82.8) 02/15/19 17: Lymphocytes % 20.1 % (8-40) 02/15/19 17:26 Monocytes % 3.5 % (3.8-10.2) L 02/15/19 17:26 Eosinophils % 1.6 % (0-4.5) 02/15/19 17:26 Basophils % 0.6 % (0-2.0) 02/15/19 17:26 Nucleated RBC % 0 % (0-0) 02/15/19 17:26 PT with INR 13.30 SEC (9.7-13.0) H 02/15/19 17:26 INR 1.13 (0.83-1.09) H 02/15/19 17:26 Sodium 134 mmol/L (136-145) L 02/15/19 17:26 Potassium 4.3 mmol/L (3.5-5.1) 02/15/19 17:26 Chloride 98 mmol/L (98-107) 02/15/19 17:26 Carbon Dioxide 27 mmol/L (21-32) 02/15/19 17:26 Anion Gap 9 MMOL/L (8-16) 02/15/19 17:26 BUN 12.7 mg/dL (7-18) 02/15/19 17:26 Creatinine 1.5 mg/dL (0.55-1.3) H 02/15/19 17:26 Est GFR (CKD-EPI)AfAm 51.41 02/15/19 17:26 Est GFR (CKD-EPI)NonAf 44.36 02/15/19 17:26 Random Glucose 296 mg/dL (74-106) H 02/15/19 17:26 Calcium 8.8 mg/dL (8.5-10.1) 02/15/19 17:26 Total Bilirubin 0.3 mg/dL (0.2-1) 02/15/19 17:26 AST 26 U/L (15-37) 02/15/19 17:26 ALT 27 U/L (13-61) 02/15/19 17:26 Alkaline Phosphatase 126 U/L (45-117) H 02/15/19 17:26 Creatine Kinase 159 U/L (26-192) 02/15/19 17:26 Creatine Kinase Index 0.6 % (0.0-5.0) 02/15/19 17:26 CK-MB (CK-2) < 1.0 ng/mL (0.5-3.6) 02/15/19 17:26 Troponin I < 0.02 ng/ml (0.00-0.05) 02/15/19 17:26 Total Protein 7.2 g/dl (6.4-8.2) 02/15/19 17: Albumin 3.2 g/dl (3.4-5.0) L 02/15/19 17:26 TSH 2.89 uIU/ml (0.358-3.74) 02/15/19 17: Beta HCG, Quant 76.4 mIU/ml 02/15/19 17:26 Urine Color Dk yellow 02/15/19 18:33 Urine Appearance Cloudy 02/15/19 18:33 Urine pH 5.0 (5.0-8.0) 02/15/19 18:33 Ur Specific [place] 1.024 (1.010-1.035) 02/15/19 18:33 Urine Protein 3+ (NEGATIVE) H 02/15/19 18:33 Urine Glucose (UA) Negative (NEGATIVE) 02/15/19 18:33 Urine Ketones Trace (NEGATIVE) H 02/15/19 18:33 Urine Blood 3+ (NEGATIVE) H 02/15/19 18:33 Urine Nitrite Negative (NEGATIVE) 02/15/19 18:33 Urine Bilirubin 1+ (NEGATIVE) H 02/15/19 18:33 Urine Urobilinogen 0.2 mg/dL (0.2-1.0) 02/15/19 18:33 Ur Leukocyte Esterase 1+ (NEGATIVE) H 02/15/19 18:33 Urine WBC (Auto) 15 /hpf (0-5) 02/15/19 18:33 Urine RBC (Auto) 107 /hpf (0-4) 02/15/19 18:33 Urine Casts (Auto) 21 /lpf (0-8) 02/15/19 18:33 U Epithel Cells (Auto) 7.6 /HPF (0-5/HPF) 02/15/19 18:33 Urine Bacteria (Auto) 38.6 /hpf (NEGATIVE) 02/15/19 18:33 ASSESSMENT/PLAN: #Syncope -Monitor on tele 12 hrs -Echo -F/u EKG -Orthostatics -Fall precautions -TSH #Retained products of conception -TVUS confirmed -IVF -Possible D&C -ROLL UP MACHINE OPERATOR consult #Uncontrolled DM -ISS -Diabetic diet -BGM #HTN -BP checks -120/76 on adm #RAJ -Nighttime BIPAP #FENA -NS 1L given -BMP trend -Diabetic diet -Ambulating well #DVT PPX -SCDs Visit type - Emergency Visit Emergency Visit: No - New Patient This patient is new to me today: No - Critical Care Critical Care patient: No ATTENDING PHYSICIAN STATEMENT I saw and evaluated the patient. I reviewed the resident's note and discussed the case with the resident. I agree with the resident's findings and plan as documented. SUBJECTIVE: OBJECTIVE: ASSESSMENT AND PLAN:
--- NOTE | 2019-02-16 05:25 | PN ---
Teaching Attending Note Name of Resident: Shayy Chang ATTENDING PHYSICIAN STATEMENT I saw and evaluated the patient. I reviewed the resident's note and discussed the case with the resident. I agree with the resident's findings and plan as documented. Patient presents for syncope and vaginal bleeding s/p medically induced at [facility] 01/2019 (records pending); she has had multiple episodes of syncope and states she was admitted for anemia at [facility] and is s/p 2 units XF. Sx are similar. She is found to have an OLIVIA, and complains of loose stool. She will be placed on medicine with JOB SERVICE CONSULTANT consultation. No urinary sx; UA is likely dirty 2/2 retained products VS, labs, imaging reviewed NAD, AAO, resting in bed NC AT EOMI PERRLA RRR s1/2 no mgr; orthostatics pending Lungs CTAB, w/ sym exp NT ND +BS CN2-12 wnl, no fnd Normal mood, appropriate behavior A/P: Patient presents with syncope, OLIVIA, retained products of conception, and anemia. She was recently transfused which can confound her red cell indices and iron studies. She is hemodynamically stable and afebrile. ## Syncope # Retained products of conception with continued bleeding # Normocytic Anemia # OLIVIA, likely prerenal # Morbid obesity # Hx AAA s/p repair # Loose stools # DM2 Uncontrolled # Noncompliance with medical therapy # Hx HTN -Admitting to tele and checking echo; no arrhythmias noted yet. Checking orthostatics. Given history syncope likely 2/2 anemia/retained products and she does have a likely prerenal OLIVIA. She was hydrated in the ER prior to getting OSVS checked so may obscure. Fall precautions. Benign neuro exam. -Recent transfusion may obscure iron studies and red cell indices. Anemia from continued bleeding from retained products; had a medical and has been having bleeding since. Avoid any AC and consult JOB SERVICE CONSULTANT. Defer all care to them for the OBGYN issue. Monitor for infection; if febrile/WBC cover for retained producs with potential infection. Trend Hb and XF if <7. -If renal fn. improves post hydration assume prerenal; if worsens obtain FeNa and consider nephro consult. She has reasons for CKD/diabetic nephropathy. -Checking A1c and starting SSI; she is noncompliant with her home insulin. -Checking lactoferrin and stool wbc; if positive can consider infectious diarrhea but has not stooled since here -Not on home antihypertensives now; can monitor. -Berry Planter regarding compliance. Full Code
[2019-02-16] MEDS ORDERED: LACTATED RINGERS SOLUTION 1,000 ML/1,000 ML INFUS.BAG IV SCH ×2 (07:00→17:57)
--- NOTE | 2019-02-16 07:14 | PN ---
Teaching Attending Note Name of Resident: Shayy Chang ATTENDING PHYSICIAN STATEMENT I saw and evaluated the patient. I reviewed the resident's note and discussed the case with the resident. I agree with the resident's findings and plan as documented. VS, labs, imaging reviewed NAD, AAO, resting in bed ASSESSMENT AND PLAN:
[2019-02-16 08:18] LABS: HEMATOCRIT 26.2 % (32.4-45.2); HEMOGLOBIN 8.8 GM/dL (10.7-15.3); MCH 29.4 pg (25.7-33.7); MCHC 33.6 g/dl (32.0-36.0); MEAN CELL VOLUME 87.7 fl (80-96); MEAN PLT VOLUME 7.3 fl (7.5-11.1); RBC 2.98 M/mm3 (3.60-5.2); RDW 14.7 % (11.6-15.6)
[2019-02-16 09:11] LABS: PLATELET COUNT 362 K/MM3 (134-434)
--- NOTE | 2019-02-16 09:32 | EKG ---
Test Reason : Blood Pressure : / mmHG Vent. Rate : 082 BPM Atrial Rate : 082 BPM P-R Int : 160 ms QRS Dur : 076 ms QT Int : 366 ms P-R-T Axes : 046 028 019 degrees QTc Int : 427 ms POOR DATA QUALITY, INTERPRETATION MAY BE ADVERSELY AFFECTED NORMAL SINUS RHYTHM NONSPECIFIC T WAVE ABNORMALITY ABNORMAL ECG WHEN COMPARED WITH ECG OF 08-FEB-2019 23:55, NO SIGNIFICANT CHANGE WAS FOUND Confirmed by VIOLET BARNHART, ANDREY ([id number]) on 02/16/2019 9:32:11 AM Referred By: Confirmed By:ANDREY LAZO MD
[2019-02-16] MEDS ORDERED: INSULIN SLIDING SCALE (NOVOLOG) 1 VIAL SQ SCH ×3 (12:30→18:00)
--- NOTE | 2019-02-16 12:30 | HOSP ---
Subjective - Review of Symptoms Subjective: c/o continued bleeding and passage of blood clots. states she syncopized yesterday while passing multiple clots. pt was told she had non viable on 01/06 when she was 8 weeks . was induced the following day. has been passing significant blood clots since then with several hospital encounters and requiring blood transfusions. this is her 1st miscarriage. Current Medications Generic Name Dose Route Start Last Admin Trade Name Freq PRN Reason Stop Dose Admin Acetaminophen 650 mg 02/16/19 00:47 Tylenol - PO Q4H PRN PAIN OR FEVER Lactated Ringer's 1,000 ml in 1,000 mls @ 75 mls/hr 02/16/19 07:00 02/16/19 07:22 Lactated Ringers Solution IV 75 mls/hr ASDIR NOEMY Administration Last Vital Signs Temp Pulse Resp BP Pulse Ox 98.4 F 91 H 18 129/87 100 02/16/19 07:28 02/16/19 07:28 02/16/19 07:28 02/16/19 07:28 02/16/19 07:28 General NAD CV S1 S2 RRR no murmur/rub/gallop Lungs CTA B/L No wheezing/rales/rhonchi Abdomen soft NT/ND obese Extremities no pedal edema CBCD WBC 7.0 K/mm3 (4.0-10.0) 02/16/19 07:59 RBC 2.98 M/mm3 (3.60-5.2) L 02/16/19 07:59 Hgb 8.8 GM/dL (10.7-15.3) L 02/16/19 07:59 Hct 26.2 % (32.4-45.2) L 02/16/19 07:59 MCV 87.7 fl (80-96) 02/16/19 07:59 MCHC 33.6 g/dl (32.0-36.0) 02/16/19 07:59 RDW 14.7 % (11.6-15.6) 02/16/19 07:59 Plt Count 362 K/MM3 (134-434) 02/16/19 07:59 MPV 7.3 fl (7.5-11.1) L 02/16/19 07:59 CMP Sodium 134 mmol/L (136-145) L 02/15/19 17:26 Potassium 4.3 mmol/L (3.5-5.1) 02/15/19 17:26 Chloride 98 mmol/L (98-107) 02/15/19 17:26 Carbon Dioxide 27 mmol/L (21-32) 02/15/19 17:26 Anion Gap 9 MMOL/L (8-16) 02/15/19 17:26 BUN 12.7 mg/dL (7-18) 02/15/19 17:26 Creatinine 1.5 mg/dL (0.55-1.3) H 02/15/19 17:26 Random Glucose 296 mg/dL (74-106) H 02/15/19 17:26 Calcium 8.8 mg/dL (8.5-10.1) 02/15/19 17:26 Total Bilirubin 0.3 mg/dL (0.2-1) 02/15/19 17:26 AST 26 U/L (15-37) 02/15/19 17:26 ALT 27 U/L (13-61) 02/15/19 17:26 Alkaline Phosphatase 126 U/L (45-117) H 02/15/19 17:26 Total Protein 7.2 g/dl (6.4-8.2) 02/15/19 17:26 Albumin 3.2 g/dl (3.4-5.0) L 02/15/19 17:26 CARDIAC ENZYMES Creatine Kinase 192 U/L (26-192) 02/16/19 07:59 Troponin I < 0.02 ng/ml (0.00-0.05) 02/16/19 07:59 A/P 34yo F wtih PMH DM, HTN presented to the ER with known miscarriage with multiple episodes of syncope. TVUS showing retained products of conception which was seen on 02/05 where D&C was offered but patient refused returns to the ER as she continue to pass blood clots with syncopal episode 1. Retained POC- continues to pass large blood clots. slight drop in Hgb but consistent with last eval. Beta HCG is trending down. TVUS with endometrial changes concerning for retained products. Spoke with OB who will come assess the patient and determine if D&C required. 2. ACute blood loss anemia- due to vaginal bleeding. slight drop from arrival. continued to have active bleeding. will check stat cbc now. transfuse if lower as pt is actively bleeding. iron studies pending. pt did require recent blood transfusion 3. UTI- asymptomatic however as patient has retained products would treat at this time. start ceftriaxone. f/u Cx if negative will d/c abx 4. Syncope- liekly due to bleeding vs dehydration. no murmur appreciated on exam. doubt this is cardiac in nature. will monitor at this point 5. OLIVIA- due to infection vs medication. getting IVF. repeat 6. HTN- currently normotensive off medications. will hold at this time. re- start as needed 7. DM- hold oral agents. iss and bgm 8. Morbid obesity- BMI 45 9. DVT ppx- EAM. hold pharmacologic anticoagulation with active bleeding Physical Examination Vital Signs: Vital Signs Temperature 98.4 F 02/16/19 07:28 Pulse Rate 91 H 02/16/19 07:28 Respiratory Rate 18 02/16/19 07:28 Blood Pressure 129/87 02/16/19 07:28 O2 Sat by Pulse Oximetry (%) 100 02/16/19 07:28 Labs: CBC, BMP 02/16/19 07:59 02/15/19 17:26
[2019-02-16] MEDS ORDERED: CEFTRIAXONE 1 GM in DEXTROSE 5%-WATER - 50 ML IVPB SCH (14:45)
--- NOTE | 2019-02-16 15:20 | CONSULT ---
Consult Consult Specialty:: GATE MORTISER OPERATOR Referred by:: ER Reason for Consultation:: Symptomatic anemia and active vaginal bleeding with RPOC - History of Present Illness Chief Complaint: vaginal bleeding, weakness and syncopal episode History of Present Illness: Patient underwent multiple failed medical treatment of missed AB at [facility] approximately 3 weeks ago. Management complicated by severe elevated BP as per patient. She has been evaluated at [facility] ER for similar presentation x 2 and reports receiving blood transfusion in [facility] in between 02/05/19 and latest admission. She had syncopal episode yesterday and was admitted for observation. 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 No: Asthma, COPD Gastrointestinal: No: Ascites, Cancer, Constipation, Crohn's Disease, Diverticulitis, Diverticulosis, Esophageal Varices, Gastritis, GERD, GI Bleed, Hemorrhoids, Hiatal Hernia, Inflamatory Bowel Disease, Irritable Bowel Disease, Pancreatitis, Peptic Ulcer Disease, Ulcerative Colitis, Other Hepatobiliary: No: Cirrhosis, Cholelithiasis, Cholecystitis, Choledocholithiasis , Hepatitis A, Hepatitis B, Hepatitis C, Other Renal/: No: Renal Failure, Renal Inusuff, BPH, Cancer, Hematuria, Hemodialysis , Neurogenic Bladder, Renal Calculi, UTI, Other Reproductive: No: Ectopic , Endometriosis, Fibroids, PID, Polycystic Ovary Syndrome, Postmenopausal, Other ...LMP: 05/09/18 ...: No Heme/Onc: Yes: Anemia Infectious Disease: No: AIDS, C-Diff, Herpes Zoster, HIV, MRSA, STD's, Tuberculosis, VREF, Other Psych: No: Addictions, Anxiety, Bipolar, Depression, Panic, Psychosis, Schizophrenia, Other Musculoskeletal: Yes: Other (left thigh pain) Endocrine: Yes: Diabetes Mellitus - Past Surgical History Past Surgical History: Yes: AAA Repair (EVAR as per patient in 2011), (in 2016 uncomplicated) - Alcohol/Substance Use Hx Alcohol Use: No History of Substance Use: reports: None - Smoking History Smoking history: Never smoked Have you smoked in the past 12 months: No Aproximately how many cigarettes per day: 0 - Social History ADL: Independent Occupation: Unemployed History of Recent Travel: No Home Medications - Allergies Allergies/Adverse Reactions: Allergies Allergy/AdvReac Type Severity Reaction Status Date / Time No Known Allergies Allergy Verified 02/15/19 16:25 - Home Medications Home Medications: Ambulatory Orders Labetalol HCl [Normodyne -] 200 mg PO BID 02/09/19 Metformin HCl [Glucophage] 500 mg PO BID 02/09/19 Nifedipine ER [Procardia Xl -] 90 mg PO DAILY 02/09/19 Family Disease History - Family Disease History Family Disease History: Heart Disease: Father (: Alcoholic liver cirrhosis) , Other: Mother (Alive: healthy), Brother (3, healthy), Sister (2, healthy), Son (1, healthy) Review of Systems - Review of Systems Constitutional: reports: Weakness Eyes: reports: No Symptoms HENT: reports: No Symptoms Neck: reports: No Symptoms Cardiovascular: reports: No Symptoms Respiratory: reports: No Symptoms Gastrointestinal: reports: No Symptoms Genitourinary: reports: No Symptoms Breasts: reports: No Symptoms Reported Musculoskeletal: reports: No Symptoms Integumentary: reports: No Symptoms Neurological: reports: No Symptoms Endocrine: reports: No Symptoms Hematology/Lymphatic: reports: Other (anemia) Physical Exam Vital Signs: Vital Signs Temperature 98.4 F 02/16/19 07:28 Pulse Rate 91 H 02/16/19 07:28 Respiratory Rate 18 02/16/19 07:28 Blood Pressure 129/87 02/16/19 07:28 O2 Sat by Pulse Oximetry (%) 100 02/16/19 07:28 Constitutional: Yes: Anxious Eyes: Yes: WNL HENT: Yes: Atraumatic, Normocephalic Neck: Yes: Supple Cardiovascular: Yes: Regular Rate and Rhythm Respiratory: Yes: Regular Gastrointestinal: Yes: Soft ...Rectal Exam: Yes: Deferred Renal/: Yes: Vaginal Bleeding (Speculum exam revealed moderate active bleeding from the os and approximately 50 cc of darblood in vagina vault) Breast(s): Yes: Other Musculoskeletal: Yes: WNL Extremities: Yes: WNL Integumentary: Yes: WNL Neurological: Yes: Alert ...Motor Strength: WNL Psychiatric: Yes: Alert, Oriented Labs: CBC, BMP 02/16/19 07:59 02/15/19 17:26 Imaging - Results Ultrasound: Report Reviewed, Image Reviewed Problem List - Problems (1) Retained products of conception Code(s): HQA4023 - Assessment/Plan 34 y/o with multiple comorbidities presented to ER for second time due to vaginal bleeding in the back ground of RPOC and syncopal episode. Patient has been evaluated and admitted by medical team. I personally spoke with admitting provider prior to evaluating patient. Surgical intervention required in view of failed multiple medical management attempts, active vaginal bleeding and symptomatic anemia. Risks and complications of procedure discussed with patient and she is expressed understanding. Patient desires to proceed and writen inform consent will be obtained. -Proceed with suction D&C -Pre-op Ab doxycicline -F/U CBC -Nicolás follow up with admitting team
[2019-02-16] MEDS ORDERED: ONDANSETRON 4 MG/2 ML VIAL IVPUSH PRN ×2 (15:23→17:57)
[2019-02-16] MEDS ORDERED: PROMETHAZINE HCL 25 MG/1 ML VIAL IVPUSH PRN (15:23)
[2019-02-16] MEDS ORDERED: LACTATED RINGERS SOLUTION 1,000 ML IV SCH ×2 (15:30→17:57)
[2019-02-16] MEDS ORDERED: CEFTRIAXONE 1 GM/50 ML BAG ONE (15:39)
[2019-02-16] MEDS ORDERED: SODIUM CHLORIDE 0.9% 500 ML INFUS.BAG IV ONE ×3 (15:43→17:57)
[2019-02-16 15:56] LABS: HEMATOCRIT 26.1 % (32.4-45.2); HEMOGLOBIN 8.8 GM/dL (10.7-15.3); MCH 29.3 pg (25.7-33.7); MCHC 33.6 g/dl (32.0-36.0); MEAN CELL VOLUME 87.1 fl (80-96); MEAN PLT VOLUME 7.4 fl (7.5-11.1); RDW 14.6 % (11.6-15.6); WHITE BLOOD COUNT 6.2 K/mm3 (4.0-10.0)
[2019-02-16 15:58] LABS: PLATELET COUNT 355 K/MM3 (134-434)
[2019-02-16] MEDS ORDERED: DOXYCYCLINE INJECTION 100 MG in DEXTROSE 5%-WATER - 100 ML IVPB ONE (16:00)
[2019-02-16] MEDS ORDERED: DOXYCYCLINE HYCLATE 100 MG VIAL ONE (16:29)
[2019-02-16] MEDS ORDERED: ROCURONIUM BROMIDE 50 MG/5 ML SYRINGE ONE (16:32)
[2019-02-16] MEDS ORDERED: MIDAZOLAM HCL 2 MG/2 ML SINGLE DOSE VIAL ONE (16:32)
[2019-02-16] MEDS ORDERED: SUCCINYLCHOLINE CHLORIDE 200 MG/10 ML SYRINGE ONE (16:32)
[2019-02-16] MEDS ORDERED: PROPOFOL 20 ML ONE (16:32)
[2019-02-16] MEDS ORDERED: LIDOCAINE HCL/PF 2% SDV 5ML VIAL ONE (16:33)
[2019-02-16] MEDS ORDERED: DEXAMETHASONE SOD PHOSPHATE 4 MG/1 ML VIAL ONE (17:09)
[2019-02-16] MEDS ORDERED: KETOROLAC TROMETHAMINE 30 MG/1 ML VIAL ONE (17:18)
[2019-02-16] MEDS ORDERED: METOPROLOL TARTRATE 5 MG/5 ML VIAL ONE (17:23)
--- NOTE | 2019-02-16 17:54 | PN ---
Progress Note (short form) - Note Progress Note: Patient reports receiving rhogam at [facility], T&S pending Problem List - Problems (1) Retained products of conception Code(s): [id number] -
--- NOTE | 2019-02-16 17:56 | OP ---
Operative Note - Note: Operative Date: 02/16/19 Pre-Operative Diagnosis: RPOC Operation: Suction D&C Findings: see dictation Implants: none Post-Operative Diagnosis: Same as Pre-op Surgeon: Terry De Leon Anesthesia: MAC Specimens Removed: POC Estimated Blood Loss (mls): 25 Fluid Volume Replaced (mls): 300 Operative Report Dictated: Yes
[2019-02-16] MEDS ORDERED: DOXYCYCLINE HYCLATE 100 MG CAPSULE PO ONE (18:15)
[2019-02-16 19:06] VITALS: BP 149/83; PULSE 83; TEMP 98
--- NOTE | 2019-02-16 19:09 | OP ---
DATE OF OPERATION: 02/16/2019 PREOPERATIVE DIAGNOSIS: A 34-year-old female with incomplete , active bleeding, mild anemia, desiring surgical management. POSTOPERATIVE DIAGNOSIS: A 34-year-old female with incomplete , active bleeding, mild anemia, desiring surgical management. PROCEDURE PERFORMED: Dilatation and curettage. SURGEON: James Eric MD ANESTHESIA: MAC. ESTIMATED BLOOD LOSS: Minimal. INTRAVENOUS FLUIDS: Per Anesthesia. COMPLICATIONS: None. SPECIMEN: Products of conception. FINDINGS: A copious amount of tissue in suction tubing. External genitalia and vaginal mucosa consistent with normal anatomy. The cervix was slightly short and patulous. No active bleeding noted at the conclusion of the procedure. DESCRIPTION OF PROCEDURE: The patient was taken to the operating room, where anesthesia was found to be adequate. She was placed in stirrups, and an appropriate time-out took place. The vagina was prepped with Betadine, and metal retractors were utilized to visualize the cervix. The cervix was grasped with a single-tooth tenaculum. The cervical os was slightly dilated. The number 8 curved cannula was advanced to the fundus without difficulty. Then suction was activated and systematic curetting of the intrauterine cavity took place. A copious amount of tissue in the tubing. Curettage was carried out until no additional tissue was noted in the tubing. The suction curettage was retrieved, and a small number 6 curette was utilized for passage inside the intrauterine cavity. This was done until a gritty texture was noted throughout the cavity. A second passage of the number [address], and no additional tissue, just a mild amount of blood with bubbles noted. The procedure was concluded. All instruments were retrieved from the vagina. No active bleeding from the cervical os or the tenaculum site. The patient tolerated the procedure well and was brought to the recovery room in stable condition. Instrument count was reported as correct x2 by the staff. JAMES ERIC MD [id number]
--- NOTE | 2019-02-17 07:14 | DS ---
Physical Exam: SUBJECTIVE: LABS Laboratory Results - last 24 hr 02/16/19 02/16/19 02/16/19 07:59 07:59 07:59 WBC 7.0 RBC 2.98 L Hgb 8.8 L Hct 26.2 L MCV 87.7 MCH 29.4 MCHC 33.6 RDW 14.7 Plt Count 362 MPV 7.3 L Creatine Kinase 192 Creatine Kinase Index 0.5 CK-MB (CK-2) < 1.0 Troponin I < 0.02 Vitamin B12 848 Serum Folate 20 H Beta HCG, Quant Blood Type Antibody Screen Antibody Identification Antigen Identification 02/16/19 02/16/19 02/16/19 11:16 15:12 17:00 WBC 6.2 RBC 3.00 L Hgb 8.8 L Hct 26.1 L MCV 87.1 MCH 29.3 MCHC 33.6 RDW 14.6 Plt Count 355 MPV 7.4 L Creatine Kinase Creatine Kinase Index CK-MB (CK-2) Troponin I Vitamin B12 Serum Folate Beta HCG, Quant 58.4 Blood Type O NEGATIVE Antibody Screen Positive Antibody Identification Anti d Antigen Identification No Result Required. HOSPITAL COURSE: Date of Admission:02/16/19 Date of Discharge: 02/17/19 Admitting diagnosis: Retained POC Pre hospital course 34 y.o. obese F [facility] medical 3.5 weeks ago, DM, HTN, AAA, RAJ, BIB her friend after multiple syncopal episode with brief periods of forgetfulness, no LOC. She has never experienced a syncopal episode in the past. She is also experiencing vaginal bleeding, saturating about 3 pads per day with passage of large blood clots. She also endorses about 15 days of non-bloody loose stools. Patient states she is also experiencing a headache, SOB, lightheadedness and abdominal cramping. Denies urinary changes, bowel movement changes, chest pain, fevers. She is being admitted to tele for workup of syncopal episodes. Subsequent hospital course admitted to medicine. was started on IVF and pain control. seen by OB and D&C done. hgb trended. dose of ceftriaxone given for +UA given retained products. pt tolerated procedure. pt expressed she did not want to stay. residents were called to deputy chief counsel patient on risks and benefits of staying. she did not want to wait and eloped. Minutes to complete discharge: 40 Discharge Summary Reason For Visit: SYNCOPE, VAGINAL BLEEDING Condition: Unchanged/Unknown - Instructions Disposition: ELOPED - Home Medications Comprehensive Discharge Medication List: Ambulatory Orders Labetalol HCl [Normodyne -] 200 mg PO BID 02/09/19 Metformin HCl [Glucophage] 500 mg PO BID 02/09/19 Nifedipine ER [Procardia Xl -] 90 mg PO DAILY 02/09/19 This patient is new to me today: Yes Date on this admission: 02/17/19 Emergency Visit: Yes ED Registration Date: 02/16/19 Care time: The patient presented to the Emergency Department on the above date and was hospitalized for further evaluation of their emergent condition. Critical Care patient: No - Discharge Referral Referred to [facility] Med P.C.: No
[2019-02-17] MEDS ORDERED: CEFTRIAXONE 1 GM in DEXTROSE 5%-WATER - 50 ML IVPB SCH (10:00)
--- NOTE | 2019-02-19 14:23 | PATH ---
Surgical Pathology Report Patient Name: ENEIDA HERNANDEZ Med. Rec. #: [id number] /Age/Gender: 1985 (Age: 34) / F Account: [id number] Location: [address] [place] [address] Taken: 02/16/2019 Received: 02/18/2019 Reported: 02/19/2019 Physicians: Terry De Leon MD Specimen(s) Received PRODUCTS OF CONCEPTION Clinical History Incomplete AB Final Diagnosis RETAINED PRODUCTS OF CONCEPTION (POC), SUCTION DILATION AND CURETTAGE: NECROTIC CHORIONIC VILLI, DECIDUA WITH AREAS OF MARKED ACUTE INFLAMMATION, AND GESTATIONAL ENDOMETRIUM CONSISTENT WITH RETAINED PRODUCTS OF CONCEPTION. Electronically Signed Melinda Lisa M.D. Gross Description Received in formalin labeled "retained POC," is an 8.5 x 7.0 x 0.8 cm aggregate of yu-brown soft tissue fragments. No villous tissue or somatic tissue is identified. A car sales representative portion is submitted in 3 cassettes. /02/18/2019 saudi/02/18/2019
== END 2019-02-16 23:00 | disposition left against medical advice (07) ==
LOC: JER 16:02 → UNDOADMOB 02-16 01:31 → JERBED 02-16 01:31 → J6S 02-16 18:52
PROVIDERS: ADMIT Internal Medicine; ATTEND Internal Medicine
PROC: 3E03329 Introduction of Other Anti-infective into Peripheral Vein, Percutaneous Approach (ICD-10-PCS; 2019-02-16)
PROC: 3E0337Z Introduction of Electrolytic and Water Balance Substance into Peripheral Vein, Percutaneous Approach (ICD-10-PCS; 2019-02-16)
PROC: 3E033GC Introduction of Other Therapeutic Substance into Peripheral Vein, Percutaneous Approach (ICD-10-PCS; 2019-02-16)
PROC: 3E013VG Introduction of Insulin into Subcutaneous Tissue, Percutaneous Approach (ICD-10-PCS; 2019-02-16)
PROC: 10D17ZZ Extraction of Products of Conception, Retained, Via Natural or Artificial Opening (ICD-10-PCS; principal; 2019-02-16 16:11)
DX: O03.4 Incomplete spontaneous abortion without complication (principal); O72.2 Delayed and secondary postpartum hemorrhage; N93.9 Abnormal uterine and vaginal bleeding, unspecified; N17.9 Acute kidney failure, unspecified; I10 Essential (primary) hypertension; D50.9 Iron deficiency anemia, unspecified; E11.65 Type 2 diabetes mellitus with hyperglycemia; G47.33 Obstructive sleep apnea (adult) (pediatric); E66.01 Morbid (severe) obesity due to excess calories; Z68.41 Body mass index [BMI] 40.0-44.9, adult; Z91.19 Patient's noncompliance with other medical treatment and regimen; N39.0 Urinary tract infection, site not specified
CPT/HCPCS: 36415; 76830-TC; 80053; 81003; 82550; 82553; 82607; 82746; 82962; 84443; 84484; 84702; 85025; 85027; 85044; 85610; 86850; 86870; 86900; 86901; 86902; 87077; 87086; 88305-TC; 93005; 93010; 94760; 96361; 96365; 96372; 96375; 99285-25; G0378; J7030

== ENCOUNTER 2020-03-25 04:54 | Inpatient (IN) | payer OTHER ==
--- NOTE | 2020-03-25 05:25 | PDOC ---
*Physical Exam - Vital Signs Last Vital Signs Temp Pulse Resp BP Pulse Ox 98.1 F 95 H 20 159/100 99 03/25/20 05:15 03/25/20 05:15 03/25/20 05:15 03/25/20 05:15 03/25/20 05:15 ED Treatment Course - LABORATORY CBC & Chemistry Diagram: 03/27/20 07:24 03/27/20 07:24 Medical Decision Making - Medical Decision Making 03/25/20 05:25 Patient seen by the advanced practice provider under my supervision. Ancillary testing reviewed as necessary. I agree with plan as outlined by the advanced practice provider. Discharge - Discharge Information Problems reviewed: Yes Clinical Impression/Diagnosis: Carrol rash of groin, Hyperglycemia Hypertension Qualifiers: Hypertension type: unspecified Qualified Code(s): I10 - Essential (primary) hypertension Condition: Improved Disposition: HOME - Follow up/Referral - Patient Discharge Instructions - Post Discharge Activity
[2020-03-25] MEDS ORDERED: LABETALOL HCL 200 MG TABLET (FP) PO ONE (05:36)
[2020-03-25] MEDS ORDERED: LABETALOL HCL 100 MG TABLET (FP) PO ONE (05:41)
--- NOTE | 2020-03-25 05:43 | PDOC ---
History of Present Illness - General Chief Complaint: Headache Stated Complaint: ABD RASH & HEADACHE Time Seen by Provider: 03/25/20 05:21 History Source: Patient - History of Present Illness Initial Comments: 03/25/20 05:36 35-year-old female complaining of generalized headache, rash and pain to to the inguinal area, "I think my sugar is off". Patient reports that she has not taken her labetalol and will be filling her prescription today. Patient reports that she ran out of her labetalol . Denies chest pain, dizziness,fever/chills, nausea, vomiting, diarrhea, abdominal pain.Patient reports that prior to coming to the ER she was seen at [facility] for same complaint. Past History - Medical History Allergies/Adverse Reactions: Allergies Allergy/AdvReac Type Severity Reaction Status Date / Time No Known Allergies Allergy Verified 03/25/20 05:19 Home Medications: Ambulatory Orders Metformin HCl [Glucophage] 1,000 mg PO BID 02/09/19 Clotrimazole [Lotrimin -] 1 applic TP BID 30 Days tube 03/28/20 Furosemide [Lasix -] 20 mg PO BIDLASIX 15 Days #30 tablet 03/28/20 Insulin (Levemir) [Levemir Vial] 35 units SQ BID@0700,2200 30 Days #2100 units 03/28/20 Lisinopril [Prinivil] 20 mg PO DAILY #15 tablet 03/28/20 Loratadine [Claritin -] 10 mg PO DAILY PRN 5 Days #5 tablet 03/28/20 acetaZOLAMIDE [Diamox -] 250 mg PO DAILY #7 tablet 03/28/20 Labetalol HCl [Normodyne -] 300 mg PO TID #90 tablet 03/30/20 Anemia: Yes Asthma: No Cancer: No Cardiac Disorders: No CVA: No COPD: No CHF: No DVT: No Dementia: No Diabetes: Yes (IDDM) Dialysis: No GI Disorders: No Disorders: No HTN: Yes Hypercholesterolemia: No Liver Disease: No Seizures: No Thyroid Disease: No - Surgical History Abdominal Surgery: No Appendectomy: No Cardiac Surgery: Yes (aaa repair 2016) Cholecystectomy: No Lung Surgery: No Neurologic Surgery: No Orthopedic Surgery: No - Reproductive History Is Patient Now?: No (#): 2 Para: 1 Cervical CA: No Dysfunctional Uterine Bleeding: No Ectopic : No Endometrial CA: No Polycystic Ovaries: No Tubal Ligation: No Spontaneous : 1 - Immunization History Immunization Up to Date: Yes - Psycho-Social/Smoking History Smoking Status: No Smoking History: Never smoked Have you smoked in the past 12 months: No Number of Cigarettes Smoked Daily: 0 Information on smoking cessation initiated: No - Substance Abuse Hx (Audit-C & DAST Scrn) How often the patient has a drink containing alcohol: Never Score: In Men: 4 or > Positive; In Women: 3 or > Positive: 0 Screen Result (Pos requires Nsg. Audit-10AR): Negative In the last yr the pt used illegal drug/Rx for NonMed reason: No Score: Yes response is considered Positive: 0 Screen Result (Positive result requires Nsg. DAST-10): Negative *Physical Exam - Vital Signs Last Vital Signs Temp Pulse Resp BP Pulse Ox 98.1 F 95 H 20 159/100 99 03/25/20 05:15 03/25/20 05:15 03/25/20 05:15 03/25/20 05:15 03/25/20 05:15 - Physical Exam General Appearance: Yes: Appropriately Dressed, Obese Respiratory/Chest: positive: Lungs Clear, Normal Breath Sounds Cardiovascular: positive: Regular Rhythm, Regular Rate Gastrointestinal/Abdominal: positive: Normal Bowel Sounds Integumentary: positive: Rash (candidal rash to groin/ vagina), Ecchymosis (right lower abdominal area) Neurologic: positive: Fully Oriented, Alert, Normal Mood/Affect ED Treatment Course - LABORATORY CBC & Chemistry Diagram: 03/27/20 07:24 03/27/20 07:24 Medical Decision Making - Medical Decision Making 07:30 am Patient signed out to Anjelica NAIR. pending labs, CT head Discharge - Discharge Information Problems reviewed: Yes Clinical Impression/Diagnosis: Carrol rash of groin, Hyperglycemia Hypertension Qualifiers: Hypertension type: unspecified Qualified Code(s): I10 - Essential (primary) hypertension Condition: Improved Disposition: HOME - Follow up/Referral - Patient Discharge Instructions - Post Discharge Activity
[2020-03-25] MEDS ORDERED: LABETALOL HCL 100 MG TABLET (FP) ONE (05:55)
[2020-03-25] MEDS ORDERED: ACETAMINOPHEN 325 MG TABLET (FP) PO ONE (05:58)
[2020-03-25] MEDS ORDERED: ACETAMINOPHEN 325 MG TABLET (FP) ONE (06:03)
[2020-03-25 06:15] LABS: BASO % 0.5 % (0-2.0); EOS % 1.6 % (0-4.5); HEMATOCRIT 36.5 % (32.4-45.2); HEMOGLOBIN 11.5 GM/dL (10.7-15.3); LYMPH % 20.4 % (8-40); MCH 25.1 pg (25.7-33.7); MCHC 31.5 g/dl (32.0-36.0); MEAN CELL VOLUME 79.7 fl (80-96); MONO % 4.7 % (3.8-10.2); NEUT % 72.8 % (42.8-82.8); PLATELET COUNT 327 K/MM3 (134-434); RBC 4.58 M/mm3 (3.60-5.2); WHITE BLOOD COUNT 9.2 K/mm3 (4.0-10.0)
[2020-03-25 06:33] LABS: EPI CELLS 22 /uL (0-25.1); HYALINE CASTS 0 /uL (0-3.1); URINE APPEARANCE CLEAR; URINE BACTERIA 411 /uL (0-1359); URINE BILIRUBIN NEGATIVE (NEGATIVE); URINE COLOR YELLOW; URINE GLUCOSE (UA) 2+ (NEGATIVE); URINE KETONE NEGATIVE (NEGATIVE); URINE LEUK ESTERASE NEGATIVE (NEGATIVE); URINE NITRITE NEGATIVE (NEGATIVE); URINE PROTEIN 3+ (NEGATIVE); URINE RBC 11 /uL (0-23.9); URINE UROBILINOGEN 0.2 mg/dL (0.2-1.0); URINE WBC 10 /uL (0-25.8)
[2020-03-25 06:42] LABS: ALBUMIN 2.7 g/dl (3.4-5.0); BILIRUBIN,TOTAL 0.2 mg/dL (0.2-1); BLOOD UREA NITROGEN 17.8 mg/dL (7-18); CREATININE 1.4 mg/dL (0.55-1.3); POTASSIUM 4.2 mmol/L (3.5-5.1)
[2020-03-25 07:08] LABS: INR 1.09 (0.83-1.09); PROTHROMBIN TIME (PATIENT) 12.9 SEC (9.7-13.0)
[2020-03-25 07:10] LABS: ACTIVATED PTT 28.5 SECONDS (25.2-36.5)
[2020-03-25 07:12] LABS: HCG,QUALITATIVE URINE Negative
--- NOTE | 2020-03-25 08:01 | PDOC ---
*Physical Exam - Vital Signs Last Vital Signs Temp Pulse Resp BP Pulse Ox 98.7 F 89 17 147/90 100 03/25/20 07:50 03/25/20 07:50 03/25/20 07:50 03/25/20 07:50 03/25/20 07:50 - Physical Exam General Appearance: Yes: Appropriately Dressed. No: Apparent Distress HEENT: positive: Normal Voice, Other (limited fundoscopic 2/2 no dilation but no gross ab/nl). negative: Scleral Icterus (R), Scleral Icterus (L) Neck: positive: Supple Respiratory/Chest: negative: Respiratory Distress Integumentary: positive: Dry, Warm, Other (hyperpigmented rash to abd skin fold) Neurologic: positive: Fully Oriented, Alert, Normal Mood/Affect, Motor Strength 12/09 ED Treatment Course - LABORATORY CBC & Chemistry Diagram: 03/25/20 05:52 03/25/20 05:52 - ADDITIONAL ORDERS Additional order review: Laboratory Results 03/25/20 03/25/20 03/25/20 06:58 06:17 05:52 PT with INR INR PTT (Actin FS) Sodium 137 Potassium 4.2 Chloride 102 Carbon Dioxide 27 Anion Gap 8 BUN 17.8 Creatinine 1.4 H Est GFR (CKD-EPI)AfAm 55.49 Est GFR (CKD-EPI)NonAf 47.88 POC Glucometer Random Glucose 308 H Calcium 8.0 L Total Bilirubin 0.2 AST 21 ALT 18 Alkaline Phosphatase 145 H Total Protein 7.0 Albumin 2.7 L Beta-Hydroxybutyrate 1.1 Serum , Qual Negative Urine Color Yellow Urine Appearance Clear Urine pH 6.0 Ur Specific Hornell 1.016 Urine Protein 3+ H Urine Glucose (UA) 2+ H Urine Ketones Negative Urine Blood Negative Urine Nitrite Negative Urine Bilirubin Negative Urine Urobilinogen 0.2 Ur Leukocyte Esterase Negative Urine WBC (Auto) 10 Urine RBC (Auto) 11 Urine Casts (Auto) 0 U Epithel Cells (Auto) 22 Urine Bacteria (Auto) 411 Urine HCG, Qual Negative 03/25/20 03/25/20 05:52 05:49 PT with INR 12.90 INR 1.09 PTT (Actin FS) 28.5 Sodium Potassium Chloride Carbon Dioxide Anion Gap BUN Creatinine Est GFR (CKD-EPI)AfAm Est GFR (CKD-EPI)NonAf POC Glucometer 293 Random Glucose Calcium Total Bilirubin AST ALT Alkaline Phosphatase Total Protein Albumin Beta-Hydroxybutyrate Serum , Qual Urine Color Urine Appearance Urine pH Ur Specific Hornell Urine Protein Urine Glucose (UA) Urine Ketones Urine Blood Urine Nitrite Urine Bilirubin Urine Urobilinogen Ur Leukocyte Esterase Urine WBC (Auto) Urine RBC (Auto) Urine Casts (Auto) U Epithel Cells (Auto) Urine Bacteria (Auto) Urine HCG, Qual 03/25/20 03/25/20 05:52 05:49 RBC 4.58 MCV 79.7 L MCHC 31.5 L RDW 17.0 H MPV 8.0 Neutrophils % 72.8 Lymphocytes % 20.4 Monocytes % 4.7 Eosinophils % 1.6 Basophils % 0.5 POC Glucometer 293 - Medications Given in the ED: ED Medications Discontinued Medications Generic Name Dose Route Start Last Admin Trade Name Freq PRN Reason Stop Dose Admin Acetaminophen 650 mg 03/25/20 05:58 03/25/20 06:00 Tylenol - PO 03/25/20 05:59 650 mg ONCE ONE Administration Labetalol HCl 200 mg 03/25/20 05:36 03/25/20 06:02 Normodyne - PO 03/25/20 05:37 Not Given ONCE ONE Labetalol HCl 100 mg 03/25/20 05:41 03/25/20 06:00 Normodyne - PO 03/25/20 05:42 100 mg ONCE ONE Administration Medical Decision Making - Medical Decision Making Received signout from INOCENCIA Traylor at 7 AM. Patient is a morbidly obese 35-year-old female with history of insulin-dependent diabetes and high blood pressure, non-compliant with meds, presented with heada petros, elevated BP and burning rash to pannus. Prior to coming to [place], was seen at [facility] but states "nothing" was done. On chart review now, BP 147/90 s/p home dose of labetalol, well batool w/ rash c/w tinea on the underside of pannus. Labs remarkable for blood glucose of 300, no ketones. Patient declines IV fluids/further management at this time, states she would prefer to go home and continue meds. Pending CT read. 03/25/20 08:50 CT read as possible idiopathic intracranial HTN (increased CSF in sella turcica w/ tortuosity of optic nerves and b/l proptosis and increased retro-prbital fat).On reassessment, pt states she has had bi-temporal MCDONALD w/ dizziness and blurry vision x 2 days but might have had similar HAs in the past. Limited fundoscopic exam to r/o papilledema. Will order MRI as d/w Dr Khoury and get neuro consult. Pt may need IR for tap given significant obesity 03/25/20 09:[address] Clements of neuro wants MRI without contrast, IR consult to tap, start Diamox 250 mg twice daily and to get ophtho consult 03/25/20 09:16 Case d/w Dr Tsai of ophtho, states he does not come in to the hospital due to covid but that he has no recommendation from an ophtho standpoint. Recommends treating pt's underlying medical conditions and that there is no specific ophtho recommendations at this time 03/25/20 09:34 Spoke to admitting team and pt admitted to med/surg Discharge - Discharge Information Problems reviewed: Yes Clinical Impression/Diagnosis: Carrol rash of groin, Hyperglycemia Hypertension Qualifiers: Hypertension type: unspecified Qualified Code(s): I10 - Essential (primary) hypertension Condition: Fair - Admission Yes - Follow up/Referral - Patient Discharge Instructions - Post Discharge Activity
[2020-03-25] MEDS ORDERED: IBUPROFEN 400 MG TABLET (FP) PO ONE ×2 (08:08→08:13)
[2020-03-25] MEDS ORDERED: SODIUM CHLORIDE 1,000 ML IV STA (08:49)
[2020-03-25] MEDS ORDERED: NYSTATIN 100,000 UNIT/GM TOPICAL CREAM 15 GM TUBE TP ONE (08:50)
[2020-03-25 09:26] LABS: INR 1.12 (0.83-1.09); PROTHROMBIN TIME (PATIENT) 13.2 SEC (9.7-13.0)
[2020-03-25] MEDS ORDERED: INSULIN REGULAR HUMAN 100 UNITS/ML *VIAL SQ ONE (09:54)
--- NOTE | 2020-03-25 11:04 | HP ---
CHIEF COMPLAINT: MCDONALD and lower abdominal rash PCP: HISTORY OF PRESENT ILLNESS: 35F w/ pmh of morbid obesity(BMI 44), AAA sp infrarenal stent([facility], ~2011), RAJ(CPAP), HTN, IDDM presented to [facility] for complaint of MCDONALD, rash to lower abd. Burning, itchy, red rash has been driving her crazy. First noticed 9d prior, red and tichy. Has been trying to keep it washed, dried, treated OTC minty powder, and cortisone cream. Has had admissions for high blood pressure and MCDONALD. Last major MCDONALD with blurry vision was ~2ys prior, during time of miscarriage. Has had Migraines for 1-2ys, with associated periorbital pain. Usually occurs every month or so, lasting ~20mins and resolving after OTC medications. Recalls have having severe MCDONALD(sensation that head was bursting) after coughing after a Hookah smoke last week. Has had intermittent diffuse MCDONALD, lasting up to two hours, occurring multiple times this week. Will occasionally wake up with headaches. Had blurry vision, having a feeling that couldnt see the videos on her cellphone, then would look away and rub her eyes. Feels eye tightness this past week. Doesn't think her eyes have grown more protuberant over the years. Denies unilateral eye pain. Will have week-long episodes of doughy swelling of her lower extremities. First noticed a year ago. Has had unintentional weight [id number] -->330lb, in 6mo. Denies palpitations, anxiety, diarrhea. Recently, was discharged from [facility] ED(03/24/20) after presenting for complaint of lower abd rash. Sent home with bacitracin Only checks BP with home wrist cuff when she doesnt feel well(MCDONALD, chest tightness). Last appointment with [facility] was approx 3ys prior. Was meant to follow up annually. Miscarriage and CTA(to evalu stent?) ~2ys prior. Doesn't regularly seen opthlamo, or podiatry. Has 4y/o son. ER course was notable for: (1) Afeb, 90s, 140-150s/90-100, 17 RR, 100 RA (2) H/H 11.5/36/5(MCV 79.7) (3) Cr 1.4(baseline 1-1.2?) (4) Glucose 308, B-hydroxybuyrate 1.1, AG 8 (5) TSH: 4.19(H) (6) UA protein 3+, glucose 2+, neg LE, neg nitrite, bact 411; epith 22 (7) UCX --pending (8) CXR: neg (9) CTH: neg lesion, hemorrhage. Enlarged partially empty/empty sella turcica. B/l exophthalmos, further evaluation is recommended (10) EKG: NSR, QTc 461; unchanged from EKG from 02/15/19 (11) Dr Tsai(Opthalmo), no rec, treat pts underlying medical conditions (12) IR consulted for LP (13) Neuro([facility]): --MRI w/o contrast --consider starting diamox (14) Nystatin cream, Acetaminophen, LR 1L, Acetazolaide 250mg IVPB (15) Admission for r/o pseudotumor cerebri Recent Travel: denies PAST MEDICAL HISTORY: as above PAST SURGICAL HISTORY: abd aortic aneurysm repair Social History: Smoking: occasional Hookah Alcohol: social Drugs: denies Allergies No Known Allergies Allergy (Verified 03/25/20 05:19) HOME MEDICATIONS: Home Medications Medication Instructions Recorded Labetalol HCl [Normodyne -] 200 mg PO BID 02/09/19 Metformin HCl [Glucophage] 500 mg PO BID 02/09/19 Nifedipine ER [Procardia Xl -] 90 mg PO DAILY 02/09/19 Insulin Glargine,Hum.rec.anlog 100 unit SQ BID 03/25/20 [Lantus] Nystatin Powder [Nystop Powder -] 15 gm TP BID #1 powder 03/25/20 REVIEW OF SYSTEMS CONSTITUTIONAL: brief chills 2d prior Absent: fever, diaphoresis, generalized weakness, malaise, loss of appetite, weight change HEENT: blurry vision Absent: rhinorrhea, nasal congestion, throat pain, throat swelling, difficulty swallowing, mouth swelling, ear pain, eye pain, CARDIOVASCULAR: BLE edema Absent: chest pain, syncope, palpitations, irregular heart rate, lightheadedness, RESPIRATORY: Absent: cough, shortness of breath, dyspnea with exertion, orthopnea, wheezing, stridor, hemoptysis GASTROINTESTINAL: Absent: abdominal pain, abdominal distension, nausea, vomiting, diarrhea, constipation, melena, hematochezia GENITOURINARY: Absent: dysuria, frequency, urgency, hesitancy, hematuria, flank pain, genital pain MUSCULOSKELETAL: Absent: myalgia, arthralgia, joint swelling, back pain, neck pain SKIN: lower pannus rash Absent: itching, pallor HEMATOLOGIC/IMMUNOLOGIC: Absent: easy bleeding, easy bruising, lymphadenopathy, frequent infections ENDOCRINE: lost 20lbs in 6mo, unintentionally Absent: unexplained weight gain, heat intolerance, cold intolerance NEUROLOGIC: headache Absent: focal weakness or paresthesias, dizziness, unsteady gait, seizure, mental status changes, bladder or bowel incontinence PSYCHIATRIC: Absent: anxiety, depression, suicidal or homicidal ideation, hallucinations. PHYSICAL EXAMINATION Vital Signs - 24 hr 03/25/20 03/25/20 05:15 07:50 Temperature 98.1 F 98.7 F Pulse Rate 95 H Pulse Rate [ 89 Right Brachial] Respiratory 20 17 Rate Blood Pressure 159/100 Blood Pressure 147/90 [Right Arm] O2 Sat by Pulse 99 100 Oximetry (%) GENERAL: Awake, alert, and fully oriented, in no acute distress. Obese female HEAD: Normal with no signs of trauma. EYES: protuberant eyes b/l, extraocular movements intact, sclera anicteric, conjunctiva clear. Mild periorbital edema. No opthalmoscope available for fundoscopic exam. EARS, NOSE, THROAT: Ears normal, nares patent, oropharynx clear without exudates. Moist mucous membranes. NECK: Normal range of motion, supple without lymphadenopathy, JVD, or masses. Thick neck, unable to appreciate thyroid or neck masses LUNGS: Breath sounds equal, clear to auscultation bilaterally. No wheezes, and no crackles. No accessory muscle use. HEART: Regular rate and rhythm, normal S1 and S2 without murmur, rub or gallop. ABDOMEN: Well-healed midline abdominal surgical scar. Soft, nontender, not distended, no guarding, no rebound, no masses. Red, warmth, rash with small amount of skin slough below pannus MUSCULOSKELETAL: Normal range of motion at all joints. No bony deformities or tenderness. No CVA tenderness. UPPER EXTREMITIES: 2+ pulses, warm, well-perfused. No cyanosis. No clubbing. No peripheral edema. LOWER EXTREMITIES: 2+ pulses, warm, well-perfused. No calf tenderness. Pretibial edema, 1+ pitting, up to knees NEUROLOGICAL: Cranial nerves II-XII intact. Normal speech. PSYCHIATRIC: Cooperative. Good eye contact. Appropriate mood and affect. SKIN: Warm, dry, normal turgor. Rash below pannus Laboratory Results - last 24 hr 03/25/20 03/25/20 03/25/20 05:49 05:52 05:52 WBC 9.2 RBC 4.58 Hgb 11.5 Hct 36.5 D MCV 79.7 L MCH 25.1 L D MCHC 31.5 L RDW 17.0 H Plt Count 327 MPV 8.0 Absolute Neuts (auto) 6.7 Neutrophils % 72.8 Lymphocytes % 20.4 Monocytes % 4.7 Eosinophils % 1.6 Basophils % 0.5 Nucleated RBC % 0 PT with INR 12.90 INR 1.09 PTT (Actin FS) 28.5 Sodium Potassium Chloride Carbon Dioxide Anion Gap BUN Creatinine Est GFR (CKD-EPI)AfAm Est GFR (CKD-EPI)NonAf POC Glucometer 293 Random Glucose Calcium Total Bilirubin AST ALT Alkaline Phosphatase Total Protein Albumin Beta-Hydroxybutyrate TSH Serum , Qual Urine Color Urine Appearance Urine pH Ur Specific Dexter Urine Protein Urine Glucose (UA) Urine Ketones Urine Blood Urine Nitrite Urine Bilirubin Urine Urobilinogen Ur Leukocyte Esterase Urine WBC (Auto) Urine RBC (Auto) Urine Casts (Auto) U Epithel Cells (Auto) Urine Bacteria (Auto) Urine HCG, Qual Blood Type Antibody Screen 03/25/20 03/25/20 03/25/20 05:52 06:17 06:58 WBC RBC Hgb Hct MCV MCH MCHC RDW Plt Count MPV Absolute Neuts (auto) Neutrophils % Lymphocytes % Monocytes % Eosinophils % Basophils % Nucleated RBC % PT with INR INR PTT (Actin FS) Sodium 137 Potassium 4.2 Chloride 102 Carbon Dioxide 27 Anion Gap 8 BUN 17.8 Creatinine 1.4 H Est GFR (CKD-EPI)AfAm 55.49 Est GFR (CKD-EPI)NonAf 47.88 POC Glucometer Random Glucose 308 H Calcium 8.0 L Total Bilirubin 0.2 AST 21 ALT 18 Alkaline Phosphatase 145 H Total Protein 7.0 Albumin 2.7 L Beta-Hydroxybutyrate 1.1 TSH Serum , Qual Negative Urine Color Yellow Urine Appearance Clear Urine pH 6.0 Ur Specific Dexter 1.016 Urine Protein 3+ H Urine Glucose (UA) 2+ H Urine Ketones Negative Urine Blood Negative Urine Nitrite Negative Urine Bilirubin Negative Urine Urobilinogen 0.2 Ur Leukocyte Esterase Negative Urine WBC (Auto) 10 Urine RBC (Auto) 11 Urine Casts (Auto) 0 U Epithel Cells (Auto) 22 Urine Bacteria (Auto) 411 Urine HCG, Qual Negative Blood Type Antibody Screen 03/25/20 03/25/20 03/25/20 09:00 09:00 09:00 WBC RBC Hgb Hct MCV MCH MCHC RDW Plt Count MPV Absolute Neuts (auto) Neutrophils % Lymphocytes % Monocytes % Eosinophils % Basophils % Nucleated RBC % PT with INR 13.20 H INR 1.12 H PTT (Actin FS) Sodium Potassium Chloride Carbon Dioxide Anion Gap BUN Creatinine Est GFR (CKD-EPI)AfAm Est GFR (CKD-EPI)NonAf POC Glucometer Random Glucose Calcium Total Bilirubin AST ALT Alkaline Phosphatase Total Protein Albumin Beta-Hydroxybutyrate TSH 4.19 H Serum , Qual Urine Color Urine Appearance Urine pH Ur Specific Dexter Urine Protein Urine Glucose (UA) Urine Ketones Urine Blood Urine Nitrite Urine Bilirubin Urine Urobilinogen Ur Leukocyte Esterase Urine WBC (Auto) Urine RBC (Auto) Urine Casts (Auto) U Epithel Cells (Auto) Urine Bacteria (Auto) Urine HCG, Qual Blood Type Cancelled Antibody Screen Cancelled ASSESSMENT/PLAN: 35F w/ pmh of morbid obesity(BMI 44), AAA sp infrarenal stent([facility], ~2011), RAJ(CPAP), HTN, IDDM presented to [facility] for complaint of MCDONALD with associated blurry vision, and lower abdominal skin fold rash. Labs notable for minor microcytosis, elevated Cr(1.4), elevated glucose 308), proteinuria. CTH imaging singificant for possible exopthalmos and possible empty sella turica. ED consulted Neuro for possible increased intracranial pressure from posibble pseudotumor cerebri. Neuro([facility]) rec admission for MRI, acetazolamide. ED consulted IR for possible LP. Pt is admitted for possible Pseudotumor Cerebri evaluation. #MCDONALD w/a blurry vision --possibly increased ICP from Pseudotumor Cerebri; possible incidental Empty Sella > risk factors: obese, child-bearing age, female > CTH: neg lesion, hemorrhage. Enlarged partially empty/empty sella turcica. B/l exophthalmos, further evaluation is recommended - LP --ED did not perform d/t to pt's body habitus, IR LP is pending - weight lost advised - Neuro([facility]): --MRI w/o contrast --consider starting diamox #rash between abdominal folds -llikely fungal dermatitis - nystatin powder #elevated glucose --likely poorly controlled DM; not in DKA > HbA1c --pending > Glucose 308, B-hydroxybuyrate 1.1, AG 8 - cw home Basalgar 50HS - ISS #OLIVIA > Cr 1.4(baseline 1-1.2?) - encouraged PO intake - may need to start MARYLIN-I once OLIVIA resolves #proteinuria --likely 2/2 diabetic nephropathy from poorly controlled diabetes > UA protein 3+, glucose 2+, neg LE, neg nitrite, bact 411; epith 22 #exopthalmus --possibly Graves > TSH: 4.19(H) > T4 --pending - Dr Tsai(Opthalmo), no rec, treat pts underlying medical conditions - consider thyroid-stimulating immunoglobulin (TSI) or thyrotropin (TSH) receptor antibodies (TRAb) #microcytosis > H/H 11.5/36.5(MCV 79.7) - fu iron panel #chronic HTN - cw home Labetalol - pt hasn't taken Nicardipine for several months #RAJ - pt prefers home nasal pillows - CPAP HS, as tolerated FEN - no mIVF - diet in the evening, in case IR can do LP in AM DVT PPX -SCDs until IR can do LP Family Medical History Family History: As Documented Family Hx Cardiac Disorders: Mother (low blood pressure) Other Family History: father with psoarsis Visit type - Emergency Visit Emergency Visit: Yes ED Registration Date: 03/25/20 Care time: The patient presented to the Emergency Department on the above date and was hospitalized for further evaluation of their emergent condition. - New Patient This patient is new to me today: Yes Date on this admission: 03/25/20 - Critical Care Critical Care patient: No ATTENDING PHYSICIAN STATEMENT I saw and evaluated the patient. I reviewed the resident's note and discussed the case with the resident. I agree with the resident's findings and plan as documented. SUBJECTIVE: OBJECTIVE: ASSESSMENT AND PLAN:
[2020-03-25] MEDS ORDERED: ACETAMINOPHEN 1000 MG/100 ML VIAL (NON FORMULARY) IVPB ONE (11:07)
--- NOTE | 2020-03-25 11:28 | PN ---
Teaching Attending Note Name of Resident: Vinod Balderrama ATTENDING PHYSICIAN STATEMENT I saw and evaluated the patient. I reviewed the resident's note and discussed the case with the resident. I agree with the resident's findings and plan as documented. SUBJECTIVE: 35 year old morbidly obese female (BMI 44) with known history of AAA sp infr arenal stent, RAJ (CPAP), HTN, IDDM, who presented to ED complaining of headache, rash to lower abdomen of 9 days' duration. 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 no motor nor sensory deficit. cranial nerves III-XII intact Integumentary: she has skin discoloration on her inguinal folds, rash is homog enous, appears erythematous See Resident notes for details ASSESSMENT AND PLAN: 1. 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 IDDM - cont SSI, accuchecks 3. RAJ - cont CPAP 4. Lower abd rash consistent with fungal rash - antifungal powder 5. DVT prophylaxis - SCD DW Dr Balderrama, agree with his exam, plans of care.
--- NOTE | 2020-03-25 11:57 | CON.NEURO ---
Consult Consult Specialty:: [facility] Referred by:: ER Reason for Consultation:: MCDONALD - History of Present Illness History of Present Illness: 35-year-old right-handed female patient with multiple medical problems including morbid obesity(BMI 44), AAA sp infrarenal stent([facility], ~2011), RAJ(CPAP), HTN, IDDM Came in to the emergency room with increasing headache patient was hemodynamically unstable patient denies any recent travel no fever patient CAT scan of the head was done in the emergency room I checked the CAT scan. Patient never been to a neurologist before. - History Source History Provided By: Patient, Medical Record Limitations to Obtaining History: No Limitations - Past Medical History Cardio/Vascular: Yes: HTN, Hyperlipdemia, Other (AAA repaired in 2011 and uncomplicated follow up 4 months ago as per patient ) Pulmonary: Yes: Sleep Apnea. No: Asthma, COPD ...LMP: 03/11/20 ...: No Musculoskeletal: Yes: Other (left thigh pain) Endocrine: Yes: Diabetes Mellitus - Past Surgical History Past Surgical History: Yes: AAA Repair (EVAR as per patient in 2011), (in 2016 uncomplicated) - Alcohol/Substance Use Hx Alcohol Use: No History of Substance Use: reports: None - Smoking History Smoking history: Never smoked Have you smoked in the past 12 months: No Aproximately how many cigarettes per day: 0 - Social History ADL: Independent Occupation: Unemployed History of Recent Travel: No Home Medications - Allergies Allergies/Adverse Reactions: Allergies Allergy/AdvReac Type Severity Reaction Status Date / Time No Known Allergies Allergy Verified 03/25/20 05:19 - Home Medications Home Medications: Ambulatory Orders Labetalol HCl [Normodyne -] 200 mg PO BID 02/09/19 Metformin HCl [Glucophage] 500 mg PO BID 02/09/19 Nifedipine ER [Procardia Xl -] 90 mg PO DAILY 02/09/19 Insulin Glargine,Hum.rec.anlog [Lantus] 100 unit SQ BID 03/25/20 Nystatin Powder [Nystop Powder -] 15 gm TP BID #1 powder 03/25/20 Family Medical History Family History: Unremarkable Family Hx Cardiac Disorders: Mother (low blood pressure) Other Family History: father with psoarsis Review of Systems - Review of Systems Neurological: reports: Dizziness, Headache, Incoordination, Numbness Physical Exam-Neuro Vital Signs: Vital Signs Temperature 98.7 F 03/25/20 07:50 Pulse Rate 89 03/25/20 07:50 Respiratory Rate 17 03/25/20 07:50 Blood Pressure 147/90 03/25/20 07:50 O2 Sat by Pulse Oximetry (%) 100 03/25/20 07:50 Constitutional: Yes: Well Nourished Neck: Yes: WNL Cardiovascular: Yes: WNL Labs: CBC, BMP 03/25/20 05:52 03/25/20 05:52 INR, PTT INR 1.12 (0.83-1.09) H 03/25/20 09:00 - Neuro Exam Level Of Consciousness: Yes: Oriented to Person, Oriented to Place, Oriented to Time Eyes: Yes: PERRLA Speech: WNL Dominant Hand: Right Gag: Present DTR's: 1+ Left Bicep, 1+ Right Bicep, 1+ Left Tricep, 1+ Right Tricep Response to light touch: Normal Response to pain prick: Normal Response to temperature: Normal Motor Strength: 3/5: Left Arm, Right Arm, Left Leg, Right Leg Imaging - Results Cat Scan: Image Reviewed Problem List - Problems (1) Benign intracranial hypertension Code(s): G93.2 - BENIGN INTRACRANIAL HYPERTENSION (2) HTN (hypertension) Code(s): I10 - ESSENTIAL (PRIMARY) HYPERTENSION Qualifiers: Hypertension type: unspecified Qualified Code(s): I10 - Essential (primary) hypertension Assessment/Plan 1. Neuro checks every 1 hour. 2. Ophthalmology evaluation. 3. Spinal tap under interventional radiology indication is benign intracranial hypertension pseudotumor 4. Weight loss was advised. 5. Tight blood pressure control. 6. Trial of Fioricet when necessary headache. 7. MRI of the brain with no contrast. Thank you Cassidy Crow M.D. Neurology [phone]
--- NOTE | 2020-03-25 12:50 | EKG ---
Test Reason : Blood Pressure : / mmHG Vent. Rate : 085 BPM Atrial Rate : 085 BPM P-R Int : 152 ms QRS Dur : 072 ms QT Int : 388 ms P-R-T Axes : 042 013 030 degrees QTc Int : 461 ms NORMAL SINUS RHYTHM CANNOT RULE OUT ANTERIOR INFARCT , AGE UNDETERMINED ABNORMAL ECG WHEN COMPARED WITH ECG OF 15-FEB-2019 21:18, NO SIGNIFICANT CHANGE WAS FOUND Confirmed by Suman Burdick MD ([id number]) on 03/25/2020 12:49:58 PM Referred By: Confirmed By:Suman Burdick MD
[2020-03-25] MEDS: INSULIN SLIDING SCALE (NOVOLOG) 1 VIAL SQ SCH ×3 (13:13→21:20)
[2020-03-25] MEDS: LABETALOL HCL 200 MG TABLET (FP) PO SCH ×2 (13:17→21:21)
[2020-03-25 13:35] LABS: CSF APPEARANCE CLEAR; CSF COLOR COLORLESS
[2020-03-25 13:36] LABS: CSF WBC 1
[2020-03-25 14:00] LABS: BF GLUCOSE (CSF ONLY) 149 mg/dL (40-70)
[2020-03-25 18:48] VITALS: BMI 45.3
[2020-03-25] MEDS: NYSTATIN POWDER 100,000 UNITS/GM - 15 GM TOPICAL POWDER TP SCH ×3 (21:18→22:44)
[2020-03-25] MEDS: ACETAMINOPHEN/CAFFEINE/BUTALBITAL 1 TAB PO PRN (21:28)
[2020-03-25] MEDS ORDERED: INSULIN (LEVEMIR) 100 UNITS/ML UNITS SQ SCH (22:00)
[2020-03-26] MEDS: LABETALOL HCL 200 MG TABLET (FP) PO SCH ×3 (06:07→21:56)
[2020-03-26] MEDS: INSULIN SLIDING SCALE (NOVOLOG) 1 VIAL SQ SCH ×4 (06:09→21:53)
[2020-03-26 08:11] LABS: BLOOD UREA NITROGEN 13.8 mg/dL (7-18); CALCIUM 8.3 mg/dL (8.5-10.1); CREATININE 1.1 mg/dL (0.55-1.3); MAGNESIUM 2.2 mg/dL (1.8-2.4)
[2020-03-26 08:13] LABS: HEMATOCRIT 33.7 % (32.4-45.2); HEMOGLOBIN 10.7 GM/dL (10.7-15.3); MCH 25.4 pg (25.7-33.7); MCHC 31.7 g/dl (32.0-36.0); MEAN CELL VOLUME 80.1 fl (80-96); MEAN PLT VOLUME 7.9 fl (7.5-11.1); PLATELET COUNT 291 K/MM3 (134-434); RBC 4.21 M/mm3 (3.60-5.2); WHITE BLOOD COUNT 7.4 K/mm3 (4.0-10.0)
[2020-03-26] MEDS ORDERED: NYSTATIN POWDER 100,000 UNITS/GM - 15 GM TOPICAL POWDER TP SCH (10:00)
[2020-03-26] MEDS ORDERED: INSULIN (NOVOLOG) ASPART 100 UNITS/ML 10ML VIAL ONE (11:00)
[2020-03-26] MEDS: NYSTATIN POWDER 100,000 UNITS/GM - 15 GM TOPICAL POWDER TP SCH ×2 (11:00→21:57)
[2020-03-26] MEDS: ACETAMINOPHEN/CAFFEINE/BUTALBITAL 1 TAB PO PRN ×2 (11:30→17:49)
[2020-03-26] MEDS: FUROSEMIDE 20 MG TABLET (FP) PO SCH (11:30)
--- NOTE | 2020-03-26 12:04 | PN ---
Physical Exam: SUBJECTIVE: Patient seen and examined OBJECTIVE: Vital Signs Period Temp Pulse Resp BP Sys/Al Pulse Ox Last 24 Hr 97.7 F-98.3 F 75-96 18-18 124-168/65-98 95-99 GENERAL: The patient is awake, alert, and fully oriented, in distress due to itching and discomfort at lower abdomen HEENT: AT/NC, PERRLA, OM full, mild proptosis noted, no conjunctival injection NECK: Trachea midline, full range of motion, supple. LUNGS: Breath sounds equal, clear to auscultation bilaterally, no wheezes, no crackles, no accessory muscle use. HEART: Regular rate and rhythm, S1, S2 without murmur, rub or gallop. ABDOMEN: obese, Soft, nontender, nondistended, normoactive bowel sounds, no guarding, no rebound, no hepatosplenomegaly, no masses. EXTREMITIES: 2+ pulses, warm, well-perfused, no edema. NEUROLOGICAL: Cranial nerves II through XII grossly intact. Normal speech, gait not observed. PSYCH: Normal mood, normal affect. SKIN: diffuse intertrigo in lower abdomen, upper thighs and pubic area Laboratory Results - last 24 hr 03/25/20 03/25/20 03/25/20 11:05 11:55 13:12 WBC RBC Hgb Hct MCV MCH MCHC RDW Plt Count MPV Sodium Potassium Chloride Carbon Dioxide Anion Gap BUN Creatinine Est GFR (CKD-EPI)AfAm Est GFR (CKD-EPI)NonAf POC Glucometer 216 Random Glucose Hemoglobin A1c % Calcium Magnesium Iron TIBC Iron Saturation Unsaturated IBC Ferritin CSF Appearance Clear CSF Color Colorless CSF WBC 1 CSF RBC 213 CSF Neutrophils No Result Required. CSF Lymphocytes No Result Required. CSF Eosinophils No Result Required. CSF Basophils No Result Required. CSF Macrophages No Result Required. CSF Plasma Cells No Result Required. CSF Diff Comment No Result Required. CSF Comment No Result Required. CSF Glucose 149 H CSF Total Protein 36 COVID-19 ([facility]) Not detected 03/25/20 03/25/20 03/26/20 17:38 21:16 06:06 WBC RBC Hgb Hct MCV MCH MCHC RDW Plt Count MPV Sodium Potassium Chloride Carbon Dioxide Anion Gap BUN Creatinine Est GFR (CKD-EPI)AfAm Est GFR (CKD-EPI)NonAf POC Glucometer 307 272 207 Random Glucose Hemoglobin A1c % Calcium Magnesium Iron TIBC Iron Saturation Unsaturated IBC Ferritin CSF Appearance CSF Color CSF WBC CSF RBC CSF Neutrophils CSF Lymphocytes CSF Eosinophils CSF Basophils CSF Macrophages CSF Plasma Cells CSF Diff Comment CSF Comment CSF Glucose CSF Total Protein COVID-19 ([facility]) 03/26/20 03/26/20 03/26/20 07:23 07:23 07:23 WBC 7.4 RBC 4.21 Hgb 10.7 Hct 33.7 MCV 80.1 MCH 25.4 L MCHC 31.7 L RDW 17.0 H Plt Count 291 MPV 7.9 Sodium 137 Potassium 4.0 Chloride 107 Carbon Dioxide 22 Anion Gap 8 BUN 13.8 Creatinine 1.1 Est GFR (CKD-EPI)AfAm 74.28 Est GFR (CKD-EPI)NonAf 64.09 POC Glucometer Random Glucose 199 H Hemoglobin A1c % Calcium 8.3 L Magnesium 2.2 Iron 45 L 43 L TIBC 375 Iron Saturation 11 L Unsaturated IBC 332 H Ferritin 9.4 CSF Appearance CSF Color CSF WBC CSF RBC CSF Neutrophils CSF Lymphocytes CSF Eosinophils CSF Basophils CSF Macrophages CSF Plasma Cells CSF Diff Comment CSF Comment CSF Glucose CSF Total Protein COVID-19 ([facility]) 03/26/20 03/26/20 07:23 11:06 WBC RBC Hgb Hct MCV MCH MCHC RDW Plt Count MPV Sodium Potassium Chloride Carbon Dioxide Anion Gap BUN Creatinine Est GFR (CKD-EPI)AfAm Est GFR (CKD-EPI)NonAf POC Glucometer 229 Random Glucose Hemoglobin A1c % 9.4 H Calcium Magnesium Iron TIBC Iron Saturation Unsaturated IBC Ferritin CSF Appearance CSF Color CSF WBC CSF RBC CSF Neutrophils CSF Lymphocytes CSF Eosinophils CSF Basophils CSF Macrophages CSF Plasma Cells CSF Diff Comment CSF Comment CSF Glucose CSF Total Protein COVID-19 ([facility]) Active Medications Generic Name Dose Route Start Last Admin Trade Name Freq PRN Reason Stop Dose Admin Acetaminophen/Butalbital/Caffeine 1 tablet 03/25/20 12:19 03/26/20 11:30 Fioricet - PO 1 tablet Q6H PRN Administration HEADACHE Acetazolamide 250 mg 03/26/20 11:00 Diamox - PO BID NOEMY Furosemide 20 mg 03/26/20 11:00 03/26/20 11:30 Lasix - PO 20 mg DAILY NOEMY Administration Insulin Aspart 1 vial 03/25/20 11:00 03/26/20 11:09 Novolog Vial Sliding Scale - SQ 4 units ACHS NOEMY Administration Protocol Insulin Detemir 35 units 03/26/20 22:00 Levemir Vial SQ BID NOEMY Labetalol HCl 300 mg 03/25/20 14:00 03/26/20 06:07 Normodyne - PO 300 mg TID NOEMY Administration Nystatin 1 applic 03/25/20 18:45 03/26/20 11:00 Nystop Powder - TP 1 applic BID NOEMY Administration ASSESSMENT/PLAN: 35 YO lady with Mhx of morbid obesity(BMI 44), AAA sp infrarenal stent, RAJ, HTN, IDDM presented to [facility] for complaint of MCDONALD with associated blurry vision, and lower abdominal skin fold rash. # Benign Intracranial Hypertension risk factors: obese, child bearing age, hypothyroidsim CTH: neg lesion, hemorrhage. Enlarged partially empty/empty sella turcica CSF results noted, reported to have opening pressure of 29mmHg received diamox upon admission c/w diamox 250 bid, furosemide 20 neurology following advised about wt loss, improve BP control, DASH diet, DM control ophthalmology consult #Intertrigo - nystatin powder improve DM control, wt loss loratadine for itching #poorly controlled DM non compliant HbA1c 9.4 levemir and ISS #OLIVIA will obtain microalbumin #blurred vision DM retinopathy vs pseudotumor cerebri HTN Morbid obesity RAJ h/o AAA repair DVT prophylaxis Visit type - Emergency Visit Emergency Visit: Yes ED Registration Date: 03/25/20 Care time: The patient presented to the Emergency Department on the above date and was hospitalized for further evaluation of their emergent condition. - New Patient This patient is new to me today: Yes Date on this admission: 03/26/20 - Critical Care Critical Care patient: No - Discharge Referral Referred to [facility] Med [facility].C[facility] No
[2020-03-26] MEDS: acetaZOLAMIDE 250 MG TABLET PO SCH ×2 (13:47→21:55)
[2020-03-26] MEDS ORDERED: LORATADINE 10 MG TABLET PO ONE (14:32)
[2020-03-26] MEDS: INSULIN (LEVEMIR) 100 UNITS/ML UNITS SQ SCH (21:54)
[2020-03-27] MEDS: ACETAMINOPHEN/CAFFEINE/BUTALBITAL 1 TAB PO PRN ×2 (05:08→13:19)
[2020-03-27] MEDS: LABETALOL HCL 200 MG TABLET (FP) PO SCH ×3 (05:11→21:55)
[2020-03-27] MEDS ORDERED: ONDANSETRON 4 MG/2 ML VIAL IVPUSH ONE (05:56)
[2020-03-27] MEDS: INSULIN SLIDING SCALE (NOVOLOG) 1 VIAL SQ SCH ×4 (06:12→21:56)
[2020-03-27] MEDS: INSULIN (LEVEMIR) 100 UNITS/ML UNITS SQ SCH ×2 (06:13→21:55)
[2020-03-27 08:12] LABS: BASO % 0.3 % (0-2.0); EOS % 2.2 % (0-4.5); HEMATOCRIT 35.3 % (32.4-45.2); LYMPH % 17.9 % (8-40); MCH 25.1 pg (25.7-33.7); MEAN CELL VOLUME 81.1 fl (80-96); MEAN PLT VOLUME 8.1 fl (7.5-11.1); MONO % 5.2 % (3.8-10.2); NEUT % 74.4 % (42.8-82.8); PLATELET COUNT 305 K/MM3 (134-434); RBC 4.36 M/mm3 (3.60-5.2); RDW 16.7 % (11.6-15.6); WHITE BLOOD COUNT 6.9 K/mm3 (4.0-10.0)
[2020-03-27 08:34] LABS: ALBUMIN 2.5 g/dl (3.4-5.0); BILIRUBIN,TOTAL 0.8 mg/dL (0.2-1); BLOOD UREA NITROGEN 14.3 mg/dL (7-18); CREATININE 1.2 mg/dL (0.55-1.3); TOT PROT 6.4 g/dl (6.4-8.2)
[2020-03-27] MEDS ORDERED: PT OWN MED DRAWER 7, Y5N ONE (09:51)
[2020-03-27] MEDS ORDERED: LORATADINE 10 MG TABLET PO SCH (10:00)
[2020-03-27] MEDS: NYSTATIN POWDER 100,000 UNITS/GM - 15 GM TOPICAL POWDER TP SCH ×2 (10:00→21:54)
[2020-03-27] MEDS: acetaZOLAMIDE 250 MG TABLET PO SCH (10:00)
[2020-03-27] MEDS: FUROSEMIDE 20 MG TABLET (FP) PO SCH ×2 (10:00→17:09)
[2020-03-27] MEDS: LORATADINE 10 MG TABLET PO SCH (10:00)
[2020-03-27] MEDS ORDERED: LISINOPRIL 10 MG TABLET (FP) PO SCH (10:15)
--- NOTE | 2020-03-27 13:00 | PN ---
Teaching Attending Note Name of Resident: Toyin Lucia ATTENDING PHYSICIAN STATEMENT I saw and evaluated the patient. I reviewed the resident's note and discussed the case with the resident. I agree with the resident's findings and plan as documented. SUBJECTIVE: OBJECTIVE: Last Vital Signs Temp Pulse Resp BP Pulse Ox 97.6 F 75 22 H 157/95 95 03/27/20 10:02 03/27/20 10:02 03/27/20 10:02 03/27/20 10:02 03/27/20 10:02 GENERAL: The patient is awake, alert, and fully oriented, in distress due to itching and discomfort at lower abdomen HEENT: AT/NC, PERRLA, OM full, mild proptosis noted, no conjunctival injection NECK: Trachea midline, full range of motion, supple. LUNGS: Breath sounds equal, clear to auscultation bilaterally, no wheezes, no crackles, no accessory muscle use. HEART: Regular rate and rhythm, S1, S2 without murmur, rub or gallop. ABDOMEN: obese, Soft, nontender, nondistended, normoactive bowel sounds, no guarding, no rebound, no hepatosplenomegaly, no masses. EXTREMITIES: 2+ pulses, warm, well-perfused, no edema. NEUROLOGICAL: Cranial nerves II through XII grossly intact. Normal speech, gait not observed. PSYCH: Normal mood, normal affect. SKIN: diffuse intertrigo in lower abdomen, upper thighs and pubic area CBCD WBC 6.9 K/mm3 (4.0-10.0) 03/27/20 07:24 RBC 4.36 M/mm3 (3.60-5.2) 03/27/20 07:24 Hgb 11.0 GM/dL (10.7-15.3) 03/27/20 07:24 Hct 35.3 % (32.4-45.2) 03/27/20 07:24 MCV 81.1 fl (80-96) 03/27/20 07:24 MCHC 31.0 g/dl (32.0-36.0) L 03/27/20 07:24 RDW 16.7 % (11.6-15.6) H 03/27/20 07:24 Plt Count 305 K/MM3 (134-434) 03/27/20 07:24 MPV 8.1 fl (7.5-11.1) 03/27/20 07:24 CMP Sodium 138 mmol/L (136-145) 03/27/20 07:24 Potassium 4.0 mmol/L (3.5-5.1) 03/27/20 07:24 Chloride 109 mmol/L (98-107) H 03/27/20 07:24 Carbon Dioxide 20 mmol/L (21-32) L 03/27/20 07:24 Anion Gap 9 MMOL/L (8-16) 03/27/20 07:24 BUN 14.3 mg/dL (7-18) 03/27/20 07:24 Creatinine 1.2 mg/dL (0.55-1.3) 03/27/20 07:24 Calcium 8.0 mg/dL (8.5-10.1) L 03/27/20 07:24 Total Bilirubin 0.8 mg/dL (0.2-1) 03/27/20 07:24 AST 8 U/L (15-37) L 03/27/20 07:24 ALT 15 U/L (13-61) 03/27/20 07:24 Alkaline Phosphatase 138 U/L (45-117) H 03/27/20 07:24 Total Protein 6.4 g/dl (6.4-8.2) 03/27/20 07:24 Albumin 2.5 g/dl (3.4-5.0) L 03/27/20 07:24 Active Medications Acetaminophen/Butalbital/Caffeine (Fioricet -) 1 tablet PO Q6H PRN PRN Reason: HEADACHE Last Admin: 03/27/20 05:08 Dose: 1 tablet Documented by: Clotrimazole (Lotrimin 1% Cream -) 1 applic TP BID [facility] Furosemide (Lasix -) 20 mg PO BIDLASIX [facility] Insulin Aspart (Novolog Vial Sliding Scale -) 1 vial SQ ACHS [facility]; Protocol Last Admin: 03/27/20 06:12 Dose: 6 units Documented by: Insulin Detemir (Levemir Vial) 35 units SQ BID@0700,2200 [facility] Last Admin: 03/27/20 06:13 Dose: 35 units Documented by: Labetalol HCl (Normodyne -) 300 mg PO TID [facility] Last Admin: 03/27/20 05:11 Dose: 300 mg Documented by: Lisinopril (Prinivil) 10 mg PO DAILY [facility] Loratadine (Claritin -) 10 mg PO DAILY [facility] Last Admin: 03/27/20 10:00 Dose: 10 mg Documented by: Nystatin (Nystop Powder -) 1 applic TP BID [facility] Last Admin: 03/27/20 10:00 Dose: 1 applic Documented by: ASSESSMENT AND PLAN: 35 YO lady with Mhx of morbid obesity(BMI 44), AAA sp infrarenal stent, RAJ, HTN, IDDM presented to [facility] for complaint of MCDONALD with associated blurry vision, and lower abdominal skin fold rash. # Benign Intracranial Hypertension risk factors: obese, child bearing age, hypothyroidsim CTH: neg lesion, Enlarged partially empty/empty sella turcica CSF results noted, reported to have opening pressure of 29mmHg reporting worsening of headaches in AM (IC hypotension?) Diamox (hold today) neurology following neurosurgical consult #Intertrigo started clotrimazole bid for 4 weeks loratadine for itching improve DM control, wt loss #poorly controlled DM non compliant #OLIVIA #blurred vision DM retinopathy vs pseudotumor cerebri HTN Morbid obesity RAJ h/o AAA repair DVT prophylaxis
[2020-03-27] MEDS: CLOTRIMAZOLE 1% CREAM 15 GM TUBE TP SCH ×2 (13:25→21:54)
--- NOTE | 2020-03-27 15:31 | PN ---
Physical Exam: SUBJECTIVE: Patient seen and examined this AM. Headache + nausea overnight. OBJECTIVE: Vital Signs Period Temp Pulse Resp BP Sys/Al Pulse Ox Last 24 Hr 97.6 F-98.5 F 71-83 20-22 145-161/91-95 95-100 GENERAL: A&Ox3, NAD however in discomfort due to lower abdomen HEAD: NCAT EYES: PERRL, EOMI NECK: No JVD LUNGS: Diminished breath sounds at the bases, no wheezes, no crackles HEART: RRR S1 S2 ABDOMEN: Obese, Soft, nontender, nondistended, + bowel sounds, no guarding, no rebound EXTREMITIES: no edema NEUROLOGICAL: Cranial nerves II through XII grossly intact. Normal speech PSYCH: Normal mood, normal affect. SKIN: Diffuse intertrigo in lower abdominal skin folds Laboratory Last Values WBC 6.9 K/mm3 (4.0-10.0) 03/27/20 07:24 RBC 4.36 M/mm3 (3.60-5.2) 03/27/20 07:24 Hgb 11.0 GM/dL (10.7-15.3) 03/27/20 07:24 Hct 35.3 % (32.4-45.2) 03/27/20 07:24 MCV 81.1 fl (80-96) 03/27/20 07:24 MCH 25.1 pg (25.7-33.7) L 03/27/20 07:24 MCHC 31.0 g/dl (32.0-36.0) L 03/27/20 07:24 RDW 16.7 % (11.6-15.6) H 03/27/20 07:24 Plt Count 305 K/MM3 (134-434) 03/27/20 07:24 MPV 8.1 fl (7.5-11.1) 03/27/20 07:24 Absolute Neuts (auto) 5.1 K/mm3 (1.5-8.0) 03/27/20 07:24 Neutrophils % 74.4 % (42.8-82.8) 03/27/20 07:24 Lymphocytes % 17.9 % (8-40) 03/27/20 07:24 Monocytes % 5.2 % (3.8-10.2) 03/27/20 07:24 Eosinophils % 2.2 % (0-4.5) 03/27/20 07:24 Basophils % 0.3 % (0-2.0) 03/27/20 07:24 Nucleated RBC % 0 % (0-0) 03/27/20 07:24 PT with INR 13.20 SEC (9.7-13.0) H 03/25/20 09:00 INR 1.12 (0.83-1.09) H 03/25/20 09:00 PTT (Actin FS) 28.5 SECONDS (25.2-36.5) 03/25/20 05:52 Sodium 138 mmol/L (136-145) 03/27/20 07:24 Potassium 4.0 mmol/L (3.5-5.1) 03/27/20 07:24 Chloride 109 mmol/L (98-107) H 03/27/20 07:24 Carbon Dioxide 20 mmol/L (21-32) L 03/27/20 07:24 Anion Gap 9 MMOL/L (8-16) 03/27/20 07:24 BUN 14.3 mg/dL (7-18) 03/27/20 07:24 Creatinine 1.2 mg/dL (0.55-1.3) 03/27/20 07:24 Est GFR (CKD-EPI)AfAm 66.86 03/27/20 07:24 Est GFR (CKD-EPI)NonAf 57.69 03/27/20 07:24 POC Glucometer 256 UNITS (80-120) 03/27/20 13:22 Random Glucose 265 mg/dL (74-106) H 03/27/20 07:24 Hemoglobin A1c % 9.4 % (4.2-6.3) H 03/26/20 07:23 Calcium 8.0 mg/dL (8.5-10.1) L 03/27/20 07:24 Magnesium 2.2 mg/dL (1.8-2.4) 03/26/20 07:23 Iron 43 ug/dL (50-175) L 03/26/20 07:23 Iron 45 ug/dL (50-175) L 03/26/20 07:23 TIBC 375 ug/dL (250-450) 03/26/20 07:23 Iron Saturation 11 % (17.5-39) L 03/26/20 07:23 Unsaturated IBC 332 ug/dL (200-275) H 03/26/20 07:23 Transferrin 260 mg/dL (192-364) 03/26/20 07:23 Ferritin 9.4 ng/ml (8-388) 03/26/20 07:23 Total Bilirubin 0.8 mg/dL (0.2-1) 03/27/20 07:24 AST 8 U/L (15-37) L 03/27/20 07:24 ALT 15 U/L (13-61) 03/27/20 07:24 Alkaline Phosphatase 138 U/L (45-117) H 03/27/20 07:24 Total Protein 6.4 g/dl (6.4-8.2) 03/27/20 07:24 Albumin 2.5 g/dl (3.4-5.0) L 03/27/20 07:24 Beta-Hydroxybutyrate 1.1 mg/dL (0.2-2.8) 03/25/20 05:52 TSH 4.19 uIU/ml (0.358-3.74) H 03/25/20 09:00 Thyroxine (T4) 7.5 ug/dl (4.5-13.9) 03/27/20 07:24 Serum , Qual Negative 03/25/20 06:58 Urine Color Yellow 03/25/20 06:17 Urine Appearance Clear 03/25/20 06:17 Urine pH 6.0 (5.0-8.0) 03/25/20 06:17 Ur Specific [place] 1.016 (1.010-1.035) 03/25/20 06:17 Urine Protein 3+ (NEGATIVE) H 03/25/20 06:17 Urine Glucose (UA) 2+ (NEGATIVE) H 03/25/20 06:17 Urine Ketones Negative (NEGATIVE) 03/25/20 06:17 Urine Blood Negative (NEGATIVE) 03/25/20 06:17 Urine Nitrite Negative (NEGATIVE) 03/25/20 06:17 Urine Bilirubin Negative (NEGATIVE) 03/25/20 06:17 Urine Urobilinogen 0.2 mg/dL (0.2-1.0) 03/25/20 06:17 Ur Leukocyte Esterase Negative (NEGATIVE) 03/25/20 06:17 Urine WBC (Auto) 10 /uL (0-25.8) 03/25/20 06:17 Urine RBC (Auto) 11 /uL (0-23.9) 03/25/20 06:17 Urine Casts (Auto) 0 /uL (0-3.1) 03/25/20 06:17 U Epithel Cells (Auto) 22 /uL (0-25.1) 03/25/20 06:17 Urine Bacteria (Auto) 411 /uL (0-1359) 03/25/20 06:17 Urine HCG, Qual Negative 03/25/20 06:17 CSF Appearance Clear 03/25/20 11:55 CSF Color Colorless 03/25/20 11:55 CSF WBC 1 03/25/20 11:55 CSF RBC 213 03/25/20 11:55 CSF Neutrophils No Result Required. 03/25/20 11:55 CSF Lymphocytes No Result Required. 03/25/20 11:55 CSF Eosinophils No Result Required. 03/25/20 11:55 CSF Basophils No Result Required. 03/25/20 11:55 CSF Macrophages No Result Required. 03/25/20 11:55 CSF Plasma Cells No Result Required. 03/25/20 11:55 CSF Diff Comment No Result Required. 03/25/20 11:55 CSF Comment No Result Required. 03/25/20 11:55 CSF Glucose 149 mg/dL (40-70) H 03/25/20 11:55 CSF Total Protein 36 mg/dL (15-45) 03/25/20 11:55 COVID-19 ([facility]IMO) Not detected (Not Detected) 03/25/20 11:05 Blood Type Cancelled 03/25/20 09:00 Antibody Screen Cancelled 03/25/20 09:00 Microbiology 03/25/20 11:55 Cerebral Spinal Fluid - Lumbar Puncture Gram Stain - Final 03/25/20 11:55 Cerebral Spinal Fluid - Lumbar Puncture CSF Culture - Preliminary 03/25/20 06:17 Urine - Urine Clean Catch Urine Culture - Preliminary Group D Strep Or Entero Coccus Proteus Species Active Medications Acetaminophen/Butalbital/Caffeine (Fioricet -) 1 tablet PO Q6H PRN PRN Reason: HEADACHE Last Admin: 03/27/20 13:19 Dose: 1 tablet Documented by: Clotrimazole (Lotrimin 1% Cream -) 1 applic TP BID [facility] Last Admin: 03/27/20 13:25 Dose: 1 applic Documented by: Furosemide (Lasix -) 20 mg PO BIDLASIX [facility] Insulin Aspart (Novolog Vial Sliding Scale -) 1 vial SQ ACHS [facility]; Protocol Last Admin: 03/27/20 13:25 Dose: 6 units Documented by: Insulin Detemir (Levemir Vial) 35 units SQ BID@0700,2200 [facility] Last Admin: 03/27/20 06:13 Dose: 35 units Documented by: Labetalol HCl (Normodyne -) 300 mg PO TID [facility] Last Admin: 03/27/20 05:11 Dose: 300 mg Documented by: Lisinopril (Prinivil) 10 mg PO DAILY [facility] Last Admin: 03/27/20 13:20 Dose: 10 mg Documented by: Loratadine (Claritin -) 10 mg PO DAILY [facility] Last Admin: 03/27/20 10:00 Dose: 10 mg Documented by: Nystatin (Nystop Powder -) 1 applic TP BID [facility] Last Admin: 03/27/20 10:00 Dose: 1 applic Documented by: ASSESSMENT/PLAN: 35 y/o F PMHx morbid obesity(BMI 44), AAA sp infrarenal stent, RAJ (on CPAP), HTN, IDDM presented with MCDONALD + blurry vision, and lower abdominal skin fold rash. Labs notable for OLIVIA (Cr 1.4), Hyperglycemia, proteinuria. CT Head significant for possible exopthalmos and possible empty sella turica. Neuro consulted for possible increased ICP from posibble pseudotumor cerebri. Patient admitted to med-surg. #MCDONALD + blurry vision -Likely due to Benign Intracranial HTN -Imaging and CSF results noted with increased opening pressure, less likely due to increased ICP from Pseudotumor Cerebri -Neuro consulted, Appreciate rec's -Diamox held today -Lasix increased to BID -weight lost advised -Neurosurgery consulted -Fioricet PRN #Intertrigo -rash between abdominal folds likely fungal in nature -Clotrimazole topical, nystatin powder, Loratadine for itching #Poorly controlled DM -ISS BGMs ACHS -Levemir increased to 35u BID #OLIVIA, Resolved #HTN -Continue home dose Labetalol -Start lisinopril 10 #RAJ -CPAP HS #FEN -no standing fluids -Replete lytes PRN #PPx -DVT: SCDs Visit type - Emergency Visit Emergency Visit: Yes ED Registration Date: 03/25/20 Care time: The patient presented to the Emergency Department on the above date and was hospitalized for further evaluation of their emergent condition. - New Patient This patient is new to me today: Yes Date on this admission: 03/27/20 - Critical Care Critical Care patient: No - Discharge Referral Referred to [facility] No ATTENDING PHYSICIAN STATEMENT I saw and evaluated the patient. I reviewed the resident's note and discussed the case with the resident. I agree with the resident's findings and plan as documented. SUBJECTIVE: OBJECTIVE: ASSESSMENT AND PLAN:
[2020-03-28] MEDS: FUROSEMIDE 20 MG TABLET (FP) PO SCH (06:54)
[2020-03-28] MEDS: INSULIN SLIDING SCALE (NOVOLOG) 1 VIAL SQ SCH ×2 (06:55→11:15)
[2020-03-28] MEDS: LABETALOL HCL 200 MG TABLET (FP) PO SCH (06:55)
[2020-03-28] MEDS: INSULIN (LEVEMIR) 100 UNITS/ML UNITS SQ SCH (06:55)
[2020-03-28] MEDS ORDERED: INSULIN (NOVOLOG) ASPART 100 UNITS/ML 10ML VIAL ONE ×2 (07:35→11:01)
[2020-03-28] MEDS ORDERED: LISINOPRIL 20 MG TABLET (FP) PO SCH (07:45)
[2020-03-28] MEDS: CLOTRIMAZOLE 1% CREAM 15 GM TUBE TP SCH (09:53)
[2020-03-28] MEDS: LORATADINE 10 MG TABLET PO SCH (09:54)
[2020-03-28] MEDS: NYSTATIN POWDER 100,000 UNITS/GM - 15 GM TOPICAL POWDER TP SCH (09:59)
[2020-03-28 10:16] VITALS: BP 138/79; PULSE 78; TEMP 98.3
[2020-03-28] MEDS ORDERED: acetaZOLAMIDE 250 MG TABLET PO SCH (10:45)
--- NOTE | 2020-03-28 10:52 | PN ---
Progress Note, Physician History of Present Illness: Doing slightly better S/p LP BP better On Diamox - Current Medication List Current Medications: Active Medications Acetazolamide (Diamox -) 250 mg PO DAILY [facility] Clotrimazole (Lotrimin 1% Cream -) 1 applic TP BID [facility] Last Admin: 03/28/20 09:53 Dose: 1 applic Documented by: Furosemide (Lasix -) 20 mg PO BIDLASIX [facility] Last Admin: 03/28/20 06:54 Dose: 20 mg Documented by: Insulin Aspart (Novolog Vial Sliding Scale -) 1 vial SQ ACHS [facility]; Protocol Last Admin: 03/28/20 06:55 Dose: 4 units Documented by: Insulin Detemir (Levemir Vial) 35 units SQ BID@0700,2200 [facility] Last Admin: 03/28/20 06:55 Dose: 35 units Documented by: Labetalol HCl (Normodyne -) 300 mg PO TID [facility] Last Admin: 03/28/20 06:55 Dose: 300 mg Documented by: Lisinopril (Prinivil) 20 mg PO DAILY [facility] Last Admin: 03/28/20 09:54 Dose: 20 mg Documented by: Loratadine (Claritin -) 10 mg PO DAILY [facility] Last Admin: 03/28/20 09:54 Dose: 10 mg Documented by: Nystatin (Nystop Powder -) 1 applic TP BID [facility] Last Admin: 03/28/20 09:59 Dose: 1 applic Documented by: - Objective Vital Signs: Vital Signs Temperature 98.3 F 03/28/20 09:00 Pulse Rate 78 03/28/20 09:00 Respiratory Rate 20 03/28/20 09:00 Blood Pressure 138/79 03/28/20 09:00 O2 Sat by Pulse Oximetry (%) 96 03/28/20 09:00 Neurological: Yes: Alert, Oriented, Cran Nerves II-XII Intact ...Motor Strength: WNL Labs: CBC, BMP 03/27/20 07:24 03/27/20 07:24 INR, PTT INR 1.12 (0.83-1.09) H 03/25/20 09:00 Problem List - Problems (1) Benign intracranial hypertension Assessment/Plan: Check Osmolartity Weight Loss No Steroids Diamox 500 mg po qd See Neurology 04/01 at 1530 Code(s): G93.2 - BENIGN INTRACRANIAL HYPERTENSION (2) HTN (hypertension) Code(s): I10 - ESSENTIAL (PRIMARY) HYPERTENSION Qualifiers: Hypertension type: unspecified Qualified Code(s): I10 - Essential (primary) hypertension
--- NOTE | 2020-03-28 11:08 | DS ---
Physical Exam: SUBJECTIVE: Patient seen and examined OBJECTIVE: Vital Signs Period Temp Pulse Resp BP Sys/Al Pulse Ox Last 24 Hr 97.8 F-98.3 F 71-78 20-20 138-158/79-103 96-98 PHYSICAL EXAM GENERAL: The patient is awake, alert, and fully oriented, not in distress HEENT: AT/NC, PERRLA, OM full, mild proptosis noted, no conjunctival injection NECK: Trachea midline, full range of motion, supple. LUNGS: Breath sounds equal, clear to auscultation bilaterally, no wheezes, no crackles, no accessory muscle use. HEART: Regular rate and rhythm, S1, S2 without murmur, rub or gallop. ABDOMEN: obese, Soft, nontender, nondistended, normoactive bowel sounds, no guarding, no rebound, no hepatosplenomegaly, no masses. EXTREMITIES: 2+ pulses, warm, well-perfused, no edema. NEUROLOGICAL: Cranial nerves II through XII grossly intact. Normal speech, gait not observed. PSYCH: Normal mood, normal affect. SKIN: diffuse intertrigo in lower abdomen, upper thighs and pubic area LABS Laboratory Results - last 24 hr 03/27/20 03/27/20 03/27/20 07:24 13:22 17:14 POC Glucometer 256 231 Free T3 2.2 03/27/20 03/28/20 20:48 06:41 POC Glucometer 213 232 Free T3 HOSPITAL COURSE: Pt admitted because of headaches and abdominal rash. Lumbar puncture was done and demonstrated elevated intracranial pressure. CT scan showed enlarged partially empty sella turcica with no other focal intracranial lesion. Neurolog ist was consulted on your case. BP and blood glucose were elevated and medications were adjusted. She was found to have lower abdominal and upper thigh intertrigo, she was started on clotrimazole cream bid. Pt symptoms improved and was discharged home for follow up with outpatient neurologist Date of Admission:03/25/20 Date of Discharge: 03/28/20 Minutes to complete discharge: 40 Discharge Summary Problems reviewed: Yes Reason For Visit: HEADACHE Current Active Problems Benign intracranial hypertension (Acute) Carrol rash of groin (Acute) Hyperglycemia (Acute) HTN (hypertension) (Chronic) Condition: Improved - Instructions Diet, Activity, Other Instructions: You were admitted because of headaches and abdominal rash. Lumbar puncture was done and demonstrated elevated intracranial pressure. CT scan showed enlarged partially empty sella turcica with no other focal intracranial lesion. Neurologist was consulted on your case. Your blood pressure and blood glucose were elevated and your medications were adjusted. You need to start taking the following new medications: 1. Acetazolamide 250mg tab once daily 2. furosemide 20mg tab twice daily 3. Lisinopril 20mg daily 4. clotrimazole cream twice daily 5. Levemir 35 unit twice daily Please, schedule a follow up appointment with Neurologist on Monday04/01/2020 at 3:30pm Please, schedule a follow up with your primary care provider to address Blood pressure control, diabetes control and monitor your electrolytes. If you feel worsening of your symptoms please call 911 or come to emergency department Referrals: Cassidy Crow MD [Staff Physician] - Disposition: HOME - Home Medications Comprehensive Discharge Medication List: Ambulatory Orders Labetalol HCl [Normodyne -] 300 mg PO TID 02/09/19 Metformin HCl [Glucophage] 1,000 mg PO BID 02/09/19 Clotrimazole [Lotrimin -] 1 applic TP BID 30 Days tube 03/28/20 Furosemide [Lasix -] 20 mg PO BIDLASIX 15 Days #30 tablet 03/28/20 Insulin (Levemir) [Levemir Vial] 35 units SQ BID@0700,2200 30 Days #2100 units 03/28/20 Lisinopril [Prinivil] 20 mg PO DAILY #15 tablet 03/28/20 Loratadine [Claritin -] 10 mg PO DAILY PRN 5 Days #5 tablet 03/28/20 acetaZOLAMIDE [Diamox -] 250 mg PO DAILY #7 tablet 03/28/20 This patient is new to me today: No Emergency Visit: Yes ED Registration Date: 03/25/20 Care time: The patient presented to the Emergency Department on the above date and was hospitalized for further evaluation of their emergent condition. Critical Care patient: No - Discharge Referral Referred to [facility] No
== END 2020-03-28 13:12 | disposition home or self-care (01) | DRG 58 ==
LOC: JER 04:54 → JERBED 09:45 → J5S 12:29
PROVIDERS: ADMIT Internal Medicine; ATTEND Student in an Organized Health Care Education/Training Program
PROC: 009U3ZX Drainage of Spinal Canal, Percutaneous Approach, Diagnostic (ICD-10-PCS; principal; 2020-03-25)
PROC: B01BZZZ Fluoroscopy of Spinal Cord (ICD-10-PCS; 2020-03-25)
DX: G93.2 Benign intracranial hypertension (principal); E66.01 Morbid (severe) obesity due to excess calories; R51 Headache; H53.8 Other visual disturbances; G47.33 Obstructive sleep apnea (adult) (pediatric); L30.4 Erythema intertrigo; I10 Essential (primary) hypertension; B37.2 Candidiasis of skin and nail; Z68.42 Body mass index [BMI] 45.0-49.9, adult; N17.9 Acute kidney failure, unspecified; E10.65 Type 1 diabetes mellitus with hyperglycemia; R80.9 Proteinuria, unspecified; Z91.14 Patient's other noncompliance with medication regimen
CPT/HCPCS: 36415; 62272; 70450-TC; 71045-TC-FY; 76000-TC-FY; 76098-TC-FY; 80048; 80053; 81003; 82010; 82043; 82570; 82728; 82945; 82962; 83036; 83540; 83550; 83735; 84157; 84436; 84443; 84466; 84481; 84703; 85025; 85027; 85610; 85730; 87070; 87086; 87186; 87205; 87899; 93005; 93010; 94660; 99285-25; U0003

== ENCOUNTER 2020-04-16 11:41 | Emergency (ER) | payer OTHER ==
[2020-04-16 12:03] VITALS: TEMP 98.1; BMI 43.8
[2020-04-16] MEDS ORDERED: METOCLOPRAMIDE HCL INJECTION 10 MG/2 ML VIAL IVPB ONE (13:37)
[2020-04-16] MEDS ORDERED: ACETAMINOPHEN 1000 MG/100 ML VIAL (NON FORMULARY) IVPB ONE (13:37)
[2020-04-16] MEDS ORDERED: ACETAMINOPHEN INJECTION 100 ML IVPB ONE (13:44)
[2020-04-16] MEDS ORDERED: METOCLOPRAMIDE HCL INJECTION 10 MG/2 ML VIAL ONE (13:44)
--- NOTE | 2020-04-16 13:47 | PDOC ---
History of Present Illness - General Chief Complaint: Blood Pressure Problem Stated Complaint: BP PROBLEM Time Seen by Provider: 04/16/20 12:32 - History of Present Illness Initial Comments: 04/16/20 13:37 hx of benign intracranial hypertension, dm, AAA repair (2016)presents to the Ed 04/16/20 15:39 04/16/20 15:56 HPI Patient denies MCDONALD, vision change, palpitations, cough, wheezing, orthopena, PND, leg swelling/pain, N/V, F,C, CP, SOB, urinary complaints, hematuria, BPR, abdominal pain, diarrhea, constipation, lightheadedness, weakness, sensory changes. PMHx: as noted above ROS: as noted SHx: Denies Etoh, IVDA, tobacco use Allergies: NKDA ROS: GENERAL/CONSTITUTIONAL: No fever or chills. No weakness. HEAD, EYES, EARS, NOSE AND THROAT: No change in vision. No ear pain or discharge. No sore throat. CARDIOVASCULAR: No chest pain or shortness of breath RESPIRATORY: No cough, wheezing, or hemoptysis. GASTROINTESTINAL: No nausea, vomiting, diarrhea or constipation. GENITOURINARY: No dysuria, frequency, or change in urination. MUSCULOSKELETAL: No joint or muscle swelling or pain. No neck or back pain. SKIN: No rash NEUROLOGIC: No headache, vertigo, loss of consciousness, or change in strength/sensation. ENDOCRINE: No increased thirst. No abnormal weight change HEMATOLOGIC/LYMPHATIC: No anemia, easy bleeding, or history of blood clots. ALLERGIC/IMMUNOLOGIC: No hives or skin allergy. PE: GENERAL: Awake, alert, and fully oriented, in no acute distress HEAD: No signs of trauma, normocephalic, atraumatic EYES: PERRLA, EOMI, sclera anicteric, conjunctiva clear ENT: Auricles normal inspection, hearing grossly normal, nares patent, oropharynx clear without exudates. Moist mucosa NECK: Normal ROM, supple, no lymphadenopathy, JVD, or masses LUNGS: No distress, speaks full sentences, clear to auscultation bilaterally HEART: Regular rate and rhythm, normal S1 and S2, no murmurs, rubs or gallops, peripheral pulses normal and equal bilaterally. ABDOMEN: Soft, nontender, normoactive bowel sounds. No guarding, no rebound. No masses EXTREMITIES : Normal inspection, Normal range of motion, no edema. No clubbing or cyanosis NEUROLOGICAL: Cranial nerves II through XII grossly intact. Normal speech, normal gait, no focal sensorimotor deficits SKIN: Warm, Dry, normal turgor, no rashes or lesions noted MDM DDx including but not limited to: Workup: TX: Scores - HEART score - EKG: normal sinus rhythm, HR bpm, NJ ms, QRS ms, QTc ms ED course meds: Re-assessment: Past History - Medical History Allergies/Adverse Reactions: Allergies Allergy/AdvReac Type Severity Reaction Status Date / Time No Known Allergies Allergy Verified 04/16/20 11:57 Home Medications: Ambulatory Orders Metformin HCl [Glucophage] 1,000 mg PO BID 02/09/19 Clotrimazole [Lotrimin -] 1 applic TP BID 30 Days tube 03/28/20 Furosemide [Lasix -] 20 mg PO BIDLASIX 15 Days #30 tablet 03/28/20 Lisinopril [Prinivil] 20 mg PO DAILY #15 tablet 03/28/20 Loratadine [Claritin -] 10 mg PO DAILY PRN 5 Days #5 tablet 03/28/20 Labetalol HCl [Normodyne -] 300 mg PO TID #90 tablet 03/30/20 Insulin Glargine,Hum.rec.anlog [Basaglar Kwikpen U-100] 50 unit SQ HS 04/16/20 Lisinopril 20 mg PO DAILY #5 tablet 04/16/20 acetaZOLAMIDE [Diamox -] 250 mg PO DAILY #5 tablet 04/16/20 Anemia: Yes Asthma: No Cancer: No Cardiac Disorders: No CVA: No COPD: No CHF: No DVT: No Dementia: No Diabetes: Yes (IDDM) Dialysis: No GI Disorders: No Disorders: No HTN: Yes Hypercholesterolemia: No Liver Disease: No Seizures: No Thyroid Disease: No - Surgical History Abdominal Surgery: No Appendectomy: No Cardiac Surgery: Yes (aaa repair 2016) Cholecystectomy: No Lung Surgery: No Neurologic Surgery: No Orthopedic Surgery: No - Reproductive History Is Patient Now?: No (#): 2 Para: 1 Cervical CA: No Dysfunctional Uterine Bleeding: No Ectopic : No Endometrial CA: No Polycystic Ovaries: No Tubal Ligation: No Spontaneous : 1 - Immunization History Immunization Up to Date: Yes - Psycho-Social/Smoking History Smoking Status: No Smoking History: Never smoked Have you smoked in the past 12 months: No Number of Cigarettes Smoked Daily: 0 Information on smoking cessation initiated: No - Substance Abuse Hx (Audit-C & DAST Scrn) How often the patient has a drink containing alcohol: Never Score: In Men: 4 or > Positive; In Women: 3 or > Positive: 0 Screen Result (Pos requires Nsg. Audit-10AR): Negative In the last yr the pt used illegal drug/Rx for NonMed reason: No Score: Yes response is considered Positive: 0 Screen Result (Positive result requires Nsg. DAST-10): Negative *Physical Exam - Vital Signs Last Vital Signs Temp Pulse Resp BP Pulse Ox 98.1 F 81 18 168/100 98 04/16/20 11:57 04/16/20 11:57 04/16/20 11:57 04/16/20 11:57 04/16/20 11:57 ED Treatment Course - LABORATORY CBC & Chemistry Diagram: 04/16/20 13:42 04/16/20 13:42 - RADIOLOGY Radiology Studies Ordered: Category Date Time Status HEAD CT WITHOUT CONTRAST [CT] Stat CT Scan 04/16/20 13:36 Ordered Discharge - Discharge Information Problems reviewed: Yes Clinical Impression/Diagnosis: Headache Condition: Stable Disposition: HOME - Follow up/Referral Referrals: Susanna Carcamo [Primary Care Provider] - - Patient Discharge Instructions Patient Printed Discharge Instructions: DI for Headache, DI for High Blood Pressure Additional Instructions: you were seen in the ED for headache and high blood pressure follow up with neurology as you were supposed to follow up with your primacy care doctor to refill your medications due to your hx of surgery on your aorta it is important that you don not run out of your medications and that you follow up with your doctor. - Post Discharge Activity
[2020-04-16 14:30] LABS: BASO % 0.3 % (0-2.0); EOS % 1.7 % (0-4.5); HEMATOCRIT 36.1 % (32.4-45.2); HEMOGLOBIN 11.3 GM/dL (10.7-15.3); MCH 24.8 pg (25.7-33.7); MCHC 31.2 g/dl (32.0-36.0); MEAN CELL VOLUME 79.6 fl (80-96); MEAN PLT VOLUME 7.7 fl (7.5-11.1); MONO % 5.1 % (3.8-10.2); NEUT % 71.9 % (42.8-82.8); PLATELET COUNT 285 K/MM3 (134-434); RBC 4.54 M/mm3 (3.60-5.2); RDW 17.9 % (11.6-15.6); WHITE BLOOD COUNT 6.8 K/mm3 (4.0-10.0)
[2020-04-16 15:02] LABS: EPI CELLS 17 /uL (0-25.1); HYALINE CASTS 1 /uL (0-3.1); URINE APPEARANCE CLEAR; URINE BACTERIA 386 /uL (0-1359); URINE BILIRUBIN NEGATIVE (NEGATIVE); URINE COLOR YELLOW; URINE GLUCOSE (UA) NEGATIVE (NEGATIVE); URINE KETONE NEGATIVE (NEGATIVE); URINE LEUK ESTERASE NEGATIVE (NEGATIVE); URINE NITRITE NEGATIVE (NEGATIVE); URINE PROTEIN 3+ (NEGATIVE); URINE RBC 4 /uL (0-23.9); URINE UROBILINOGEN 0.2 mg/dL (0.2-1.0); URINE WBC 19 /uL (0-25.8)
[2020-04-16 15:08] LABS: BILIRUBIN,TOTAL 0.3 mg/dL (0.2-1); BLOOD UREA NITROGEN 16.6 mg/dL (7-18); CALCIUM 8.9 mg/dL (8.5-10.1); CREATININE 1.2 mg/dL (0.55-1.3); POTASSIUM 3.8 mmol/L (3.5-5.1); TOT PROT 7.1 g/dl (6.4-8.2)
[2020-04-16 16:30] VITALS: BP 158/98; PULSE 83
--- NOTE | 2020-04-16 17:50 | PDOC ---
Documentation entered by Kendy Sawant SCRIBE, acting as scribe for Maria Victoria Andrews MD. Maria Victoria Andrews MD: This documentation has been prepared by the Savana myers Xhesika, SCRIBE, under my direction and personally reviewed by me in its entirety. I confirm that the documentation accurately reflects all work, treatment, procedures, and medical decision making performed by me. Attending Attestation - Resident Resident Name: Ronan Solanogregg - HPI HPI: 04/16/20 12:43 The patient is a 35 year old female with a significant medical history of IDDM, HTN, AAA, and Anemia who present to the ED with elevated blood pressure. Pt states she missed her lisinopril for the past 2 days. Patient states that she presented to the clinic to get her BP medications refilled and was sent from the clinic because her BP was high and she had a bad headache. She is currently symptom free. The patient denies chest pain, headache and dizziness. Denies fever, chills, nausea, vomiting, diarrhea and constipation. Denies dysuria, frequency, urgency and hematuria. Allergies: NKDA Past surgical history: aaa repair 2016 PCP: Susanna Pritchett 04/16/20 15:28 - Physicial Exam PE: 04/16/20 15:30 Agree with resident exam. Patient is alert and oriented and in no acute distress. CV: rrr no m/r/g. Pulm: CTA b/l. Abdomen is soft, non tender, non distended, without guarding or rebound. NEuro: alert and oriented x 3, CN grossly intact, ambulatory in the ED with normal gait. - Medical Decision Making 04/16/20 17:40 pt presents to the ED complaining of headache and elevated BP after running out of her medication for BP and idopathic intracranial HTN. Symptoms resolved after getting her antihypertensives in the ED. Will discharge home with instructions to return to the ED for worsening symptoms. 04/16/20 17:46 04/16/20 17:48 Discharge - Discharge Information Problems reviewed: Yes Clinical Impression/Diagnosis: Headache Condition: Stable Disposition: HOME - Additional Discharge Information Prescriptions: acetaZOLAMIDE [Diamox -] 250 mg PO DAILY #5 tablet Lisinopril 20 mg PO DAILY #5 tablet - Follow up/Referral Referrals: Susanna Carcamo [Primary Care Provider] - - Patient Discharge Instructions Patient Printed Discharge Instructions: DI for High Blood Pressure, DI for Headache Additional Instructions: you were seen in the ED for headache and high blood pressure follow up with neurology as you were supposed to follow up with your primacy care doctor to refill your medications due to your hx of surgery on your aorta it is important that you don not run out of your medications and that you follow up with your doctor. - Post Discharge Activity
== END 2020-04-16 16:31 | disposition home or self-care (01) ==
LOC: JER 11:41
PROC: 3E0333Z Introduction of Anti-inflammatory into Peripheral Vein, Percutaneous Approach (ICD-10-PCS; principal; 2020-04-16)
PROC: 3E033GC Introduction of Other Therapeutic Substance into Peripheral Vein, Percutaneous Approach (ICD-10-PCS; 2020-04-16)
DX: R51 Headache (principal)
CPT/HCPCS: 36415; 80053; 81003; 85025; 99284-25; J0131

== ENCOUNTER 2023-08-16 08:30 | Observation (INO) | payer OTHER ==
[2023-08-16] MEDS ORDERED: SODIUM CHLORIDE 0.9% 500 ML INFUS.BAG IV ONE ×2 (09:31→10:51)
[2023-08-16] MEDS ORDERED: LABETALOL HCL 100 MG TABLET (FP) PO ONE (09:41)
[2023-08-16] MEDS ORDERED: ACETAMINOPHEN 1000 MG/100 ML BAG IVPB ONE (09:41)
[2023-08-16] MEDS ORDERED: ACETAMINOPHEN INJECTION 100 ML IVPB ONE (09:47)
[2023-08-16] MEDS ORDERED: LABETALOL HCL 5 MG/1 ML (100MG/20 ML VIAL) IVPUSH ONE (09:53)
[2023-08-16] MEDS ORDERED: LABETALOL HCL 100 MG TABLET (FP) ONE (10:02)
[2023-08-16 10:06] LABS: BASO % 0.3 % (0-2.0); EOS % 0.3 % (0-4.5); HEMATOCRIT 37.9 % (32.4-45.2); HEMOGLOBIN 11.9 GM/dL (10.7-15.3); MCH 24.4 pg (25.7-33.7); MCHC 31.3 g/dl (32.0-36.0); MEAN CELL VOLUME 77.8 fl (80-96); MEAN PLT VOLUME 7.7 fl (7.5-11.1); MONO % 3.4 % (3.8-10.2); PLATELET COUNT 380 10^3/uL (134-434); RBC 4.87 M/mm3 (3.60-5.2); RDW 16.8 % (11.6-15.6); WHITE BLOOD COUNT 12.8 K/mm3 (4.0-10.0)
[2023-08-16 10:21] LABS: POTASSIUM 4.4 mmol/L (3.5-5.1)
[2023-08-16 10:24] LABS: BLOOD UREA NITROGEN 24.5 mg/dL (7-18); CALCIUM 8.7 mg/dL (8.5-10.1)
[2023-08-16 10:27] LABS: CREATININE 1.5 mg/dL (0.55-1.3)
[2023-08-16 10:29] LABS: BILIRUBIN,TOTAL 0.3 mg/dL (0.2-1); TOT PROT 7.7 g/dl (6.4-8.2)
[2023-08-16] MEDS ORDERED: ONDANSETRON 4 MG/2 ML VIAL IVPUSH ONE (10:51)
[2023-08-16] MEDS ORDERED: ONDANSETRON 4 MG/2 ML VIAL ONE (10:53)
[2023-08-16] MEDS ORDERED: METOCLOPRAMIDE HCL INJECTION 10 MG/2 ML VIAL IVPUSH ONE (13:06)
[2023-08-16] MEDS ORDERED: METOCLOPRAMIDE HCL INJECTION 10 MG/2 ML VIAL ONE (13:11)
[2023-08-16] MEDS ORDERED: NIFEdipine E.R. 30 MG TABLET PO ONE (13:11)
[2023-08-16] MEDS ORDERED: NIFEdipine E.R 60 MG TABLET PO ONE (13:12)
[2023-08-16] MEDS ORDERED: NIFEdipine E.R. 90 MG TABLET PO SCH (13:15)
[2023-08-16] MEDS ORDERED: ONDANSETRON 4 MG/2 ML VIAL IVPUSH PRN (17:31)
[2023-08-16] MEDS ORDERED: ACETAMINOPHEN 500 MG TABLET (FP) PO PRN (17:32)
[2023-08-16] MEDS: LABETALOL HCL 100 MG TABLET (FP) PO SCH (21:35)
[2023-08-16] MEDS ORDERED: FAMOTIDINE 20 MG TABLET ONE (21:39)
[2023-08-16] MEDS: FAMOTIDINE 20 MG TABLET PO SCH (22:14)
[2023-08-17] MEDS ORDERED: LABETALOL HCL 100 MG TABLET (FP) ONE (06:41)
[2023-08-17] MEDS ORDERED: LABETALOL HCL 200 MG TABLET (FP) ONE (06:41)
[2023-08-17] MEDS: LABETALOL HCL 100 MG TABLET (FP) PO SCH ×3 (06:48→22:04)
[2023-08-17 08:25] VITALS: BMI 38.3
[2023-08-17 08:27] LABS: BASO % 0.3 % (0-2.0); EOS % 1.5 % (0-4.5); HEMATOCRIT 33.3 % (32.4-45.2); HEMOGLOBIN 10.5 GM/dL (10.7-15.3); LYMPH % 17.5 % (8-40); MCH 24.8 pg (25.7-33.7); MCHC 31.6 g/dl (32.0-36.0); MEAN CELL VOLUME 78.3 fl (80-96); MEAN PLT VOLUME 7.7 fl (7.5-11.1); MONO % 4.5 % (3.8-10.2); NEUT % 76.2 % (42.8-82.8); PLATELET COUNT 349 10^3/uL (134-434); RBC 4.26 M/mm3 (3.60-5.2); RDW 16.4 % (11.6-15.6); WHITE BLOOD COUNT 8.3 K/mm3 (4.0-10.0)
[2023-08-17 08:40] LABS: POTASSIUM 3.7 mmol/L (3.5-5.1)
[2023-08-17 08:43] LABS: CALCIUM 8.5 mg/dL (8.5-10.1)
[2023-08-17 08:44] LABS: BLOOD UREA NITROGEN 18.6 mg/dL (7-18)
[2023-08-17 08:47] LABS: CREATININE 1.4 mg/dL (0.55-1.3)
[2023-08-17] MEDS: INSULIN ASPART SLIDING SCALE (NOVOLOG) 1 VIAL SQ SCH ×4 (08:54→22:36)
[2023-08-17] MEDS ORDERED: PATIENT'S OWN MEDICATION (NON-FORMULARY) (Nifedipine [Nifedipine Er] 90 MG Tablet.Er) PO SCH (10:00)
[2023-08-17] MEDS: NIFEdipine E.R. 90 MG TABLET PO SCH (10:05)
[2023-08-17] MEDS: FAMOTIDINE 20 MG TABLET PO SCH ×2 (10:05→22:05)
[2023-08-18] MEDS: LABETALOL HCL 100 MG TABLET (FP) PO SCH ×2 (06:30→14:07)
[2023-08-18] MEDS: INSULIN ASPART SLIDING SCALE (NOVOLOG) 1 VIAL SQ SCH ×2 (06:30→11:10)
[2023-08-18] MEDS: NIFEdipine E.R. 90 MG TABLET PO SCH (09:09)
[2023-08-18] MEDS: FAMOTIDINE 20 MG TABLET PO SCH ×2 (09:09→09:11)
[2023-08-18 11:09] VITALS: BP 144/97; PULSE 85; RESP 18; TEMP 98.9
[2023-08-18 12:24] LABS: BASO % 0.4 % (0-2.0); EOS % 1.5 % (0-4.5); HEMATOCRIT 33.6 % (32.4-45.2); HEMOGLOBIN 10.7 GM/dL (10.7-15.3); LYMPH % 17.5 % (8-40); MCH 24.8 pg (25.7-33.7); MCHC 31.9 g/dl (32.0-36.0); MEAN CELL VOLUME 77.8 fl (80-96); MEAN PLT VOLUME 7.6 fl (7.5-11.1); MONO % 4.1 % (3.8-10.2); NEUT % 76.5 % (42.8-82.8); PLATELET COUNT 364 10^3/uL (134-434); RBC 4.32 M/mm3 (3.60-5.2); RDW 16.7 % (11.6-15.6); WHITE BLOOD COUNT 9.4 K/mm3 (4.0-10.0)
[2023-08-18 12:52] LABS: POTASSIUM 4.1 mmol/L (3.5-5.1)
[2023-08-18 12:58] LABS: ALBUMIN 2.9 g/dl (3.4-5.0); BLOOD UREA NITROGEN 18.9 mg/dL (7-18)
[2023-08-18 13:01] LABS: CREATININE 1.6 mg/dL (0.55-1.3)
[2023-08-18 13:03] LABS: BILIRUBIN,TOTAL 0.4 mg/dL (0.2-1); TOT PROT 7.1 g/dl (6.4-8.2)
== END 2023-08-18 16:50 | disposition home or self-care (01) ==
LOC: JER 08:30 → UNDOADMOB 16:52 → INTOOBSV 16:52 → JERBED 16:52 → J5S 08-17 08:37
PROVIDERS: ADMIT Internal Medicine
PROC: 3E033NZ Introduction of Analgesics, Hypnotics, Sedatives into Peripheral Vein, Percutaneous Approach (ICD-10-PCS; principal; 2023-08-16)
PROC: 3E013VG Introduction of Insulin into Subcutaneous Tissue, Percutaneous Approach (ICD-10-PCS; 2023-08-16)
PROC: 3E033GC Introduction of Other Therapeutic Substance into Peripheral Vein, Percutaneous Approach (ICD-10-PCS; 2023-08-16)
PROC: 3E0337Z Introduction of Electrolytic and Water Balance Substance into Peripheral Vein, Percutaneous Approach (ICD-10-PCS; 2023-08-16)
DX: I16.0 Hypertensive urgency (principal); N17.9 Acute kidney failure, unspecified; R11.2 Nausea with vomiting, unspecified; Z95.828 Presence of other vascular implants and grafts; Z98.890 Other specified postprocedural states; E11.9 Type 2 diabetes mellitus without complications
CPT/HCPCS: 0241U-QW; 36415; 70450-TC; 71046-TC-FY; 71275-TC; 74174-TC; 80048; 80053; 82962; 83036; 84439; 84443; 84484; 85025; 93005; 93010; 96372; 96374; 96375; 99285-25; G0378; Q9967

== ENCOUNTER 2023-09-04 13:06 | Emergency (ER) | payer OTHER ==
[2023-09-04 13:13] VITALS: RESP 18; TEMP 98.5; BMI 40.6
[2023-09-04] MEDS ORDERED: NIFEdipine E.R. 90 MG TABLET PO ONE (13:48)
[2023-09-04] MEDS ORDERED: LABETALOL HCL 100 MG TABLET (FP) PO ONE (13:48)
[2023-09-04] MEDS ORDERED: LABETALOL HCL 100 MG TABLET (FP) ONE (14:20)
[2023-09-04] MEDS ORDERED: NIFEdipine E.R. 30 MG TABLET PO ONE (14:20)
[2023-09-04] MEDS ORDERED: LABETALOL HCL 200 MG TABLET (FP) ONE (14:21)
[2023-09-04] MEDS ORDERED: NIFEdipine E.R 60 MG TABLET PO ONE (14:21)
[2023-09-04 14:29] LABS: BASO % 0.5 % (0-2.0); EOS % 1.2 % (0-4.5); HEMATOCRIT 32.7 % (32.4-45.2); LYMPH % 17.8 % (8-40); MCH 26.2 pg (25.7-33.7); MCHC 33.6 g/dl (32.0-36.0); MEAN PLT VOLUME 7.4 fl (7.5-11.1); MONO % 4.6 % (3.8-10.2); NEUT % 75.9 % (42.8-82.8); PLATELET COUNT 337 10^3/uL (134-434); RDW 16.9 % (11.6-15.6); WHITE BLOOD COUNT 8.6 K/mm3 (4.0-10.0)
[2023-09-04 14:36] LABS: INR 1.09 (0.83-1.09); PROTHROMBIN TIME (PATIENT) 12.6 SEC (9.7-13.0)
[2023-09-04 14:50] LABS: POTASSIUM 3.7 mmol/L (3.5-5.1)
[2023-09-04 14:53] LABS: CALCIUM 8.7 mg/dL (8.5-10.1)
[2023-09-04 14:54] LABS: ALBUMIN 3.2 g/dl (3.4-5.0); BLOOD UREA NITROGEN 21.6 mg/dL (7-18)
[2023-09-04 14:57] LABS: CREATININE 1.6 mg/dL (0.55-1.3)
[2023-09-04 14:58] LABS: BILIRUBIN,TOTAL 0.3 mg/dL (0.2-1)
[2023-09-04 14:59] LABS: TOT PROT 7.4 g/dl (6.4-8.2)
[2023-09-04 16:29] VITALS: BP 177/103; PULSE 81
== END 2023-09-04 18:11 | disposition home or self-care (01) ==
LOC: JER 13:06
DX: R05.9 Cough, unspecified (principal); R09.81 Nasal congestion; Z20.822 Contact with and (suspected) exposure to COVID-19
CPT/HCPCS: 0241U-QW; 36415; 71046-TC-FY; 80053; 84484; 84703; 85025; 85610; 85730; 86850; 86900; 86901; 93005; 93010; 99285-25

== ENCOUNTER 2023-12-24 23:09 | Emergency (ER) | payer OTHER ==
[2023-12-24 23:15] VITALS: BP 172/93; TEMP 98.5; BMI 42.0
[2023-12-24] MEDS ORDERED: ACETAMINOPHEN 500 MG TABLET (FP) ONE (23:59)
[2023-12-25] MEDS: ACETAMINOPHEN 500 MG TABLET (FP) PO ONE
[2023-12-25] MEDS ORDERED: CEPHALEXIN MONOHYDRATE 500 MG CAPSULE (UD) ONE (00:26)
[2023-12-25] MEDS: CEPHALEXIN MONOHYDRATE 500 MG CAPSULE (UD) PO ONE (00:27)
[2023-12-25 01:12] VITALS: PULSE 74; RESP 18
[2023-12-25] MEDS ORDERED: KETOROLAC TROMETHAMINE 30 MG/1 ML VIAL ONE (01:18)
[2023-12-25] MEDS: KETOROLAC TROMETHAMINE 30 MG/1 ML VIAL IM ONE (01:20)
== END 2023-12-25 01:20 | disposition home or self-care (01) ==
LOC: JER 23:09
PROC: 3E0133Z Introduction of Anti-inflammatory into Subcutaneous Tissue, Percutaneous Approach (ICD-10-PCS; principal; 2023-12-25)
DX: N61.1 Abscess of the breast and nipple (principal); L03.313 Cellulitis of chest wall; R50.9 Fever, unspecified
CPT/HCPCS: 99284-25

== ENCOUNTER 2024-01-02 10:59 | Inpatient (IN) | payer OTHER ==
[2024-01-02 13:27] LABS: BASO % 1.4 % (0-2.0); EOS % 2.1 % (0-4.5); HEMATOCRIT 27.6 % (32.4-45.2); HEMOGLOBIN 9.1 GM/dL (10.7-15.3); LYMPH % 13.8 % (8-40); MCH 26.2 pg (25.7-33.7); MCHC 33.1 g/dl (32.0-36.0); MEAN CELL VOLUME 79.1 fl (80-96); MEAN PLT VOLUME 7.3 fl (7.5-11.1); MONO % 5.7 % (3.8-10.2); PLATELET COUNT 410 10^3/uL (134-434); RBC 3.49 M/mm3 (3.60-5.2); WHITE BLOOD COUNT 8.1 K/mm3 (4.0-10.0)
[2024-01-02 13:33] LABS: INR 1.14 (0.83-1.09); PROTHROMBIN TIME (PATIENT) 12.8 SEC (9.7-13.0)
[2024-01-02 13:58] LABS: CHLORIDE 98 mmol/L (98-107); SODIUM 129 mmol/L (136-145)
[2024-01-02 14:00] LABS: ALBUMIN 2.8 g/dl (3.4-5.0); BLOOD UREA NITROGEN 29.8 mg/dL (7-18); CO2 25 mmol/L (21-32); GLUCOSE,RANDOM 355 mg/dL (74-106)
[2024-01-02 14:03] LABS: CREATININE 2.3 mg/dL (0.55-1.3); SGPT/ALT 23 U/L (13-61)
[2024-01-02 14:04] LABS: SGOT/AST 74 U/L (15-37)
[2024-01-02 14:05] LABS: BILIRUBIN,TOTAL 0.5 mg/dL (0.2-1); TOT PROT 7.7 g/dl (6.4-8.2)
[2024-01-02 14:06] LABS: ALK PHOS 134 U/L (45-117)
[2024-01-02 14:08] LABS: ANION GAP 6 mmol/L (4-13); POTASSIUM 6.2 mmol/L (3.5-5.1)
[2024-01-02] MEDS ORDERED: VANCOMYCIN HCL 1,500 MG in DEXTROSE 5%-WATER - 500 ML IVPB ONE (14:37)
[2024-01-02] MEDS ORDERED: PIPERACILLIN/TAZOB 4.5 GM 4.5 GM/100 ML BAG IVPB ONE (15:22)
[2024-01-02] MEDS: PIPERACILLIN/TAZOB 4.5 GM 4.5 GM in DEXTROSE 5%-WATER 100 ML IVPB ONE (16:14)
[2024-01-02 16:33] LABS: POTASSIUM 4.4 mmol/L (3.5-5.1)
[2024-01-02 16:36] LABS: BLOOD UREA NITROGEN 31.4 mg/dL (7-18); CALCIUM 9.6 mg/dL (8.5-10.1)
[2024-01-02 16:40] LABS: CREATININE 2.3 mg/dL (0.55-1.3)
[2024-01-02] MEDS ORDERED: SODIUM CHLORIDE 0.9% 500 ML INFUS.BAG IV ONE (16:44)
[2024-01-02] MEDS: VANCOMYCIN PREMIX 1.5 GM 1,500 MG/300 ML BAG IVPB ONE (17:13)
[2024-01-02] MEDS ORDERED: ACETAMINOPHEN 325 MG TABLET (FP) PO PRN ×2 (18:07→19:16)
[2024-01-02 18:39] VITALS: BMI 39.8
[2024-01-02] MEDS ORDERED: DOCUSATE SODIUM 100 MG CAPSULE (FP) PO PRN (19:15)
[2024-01-02] MEDS: SODIUM CHLORIDE 1,000 ML IV SCH (19:55)
[2024-01-02] MEDS: oxyCODONE HCL 5 MG TABLET PO PRN (19:59)
[2024-01-02 21:57] VITALS: RESP 18
[2024-01-02] MEDS: LABETALOL HCL 100 MG TABLET (FP) PO SCH (21:58)
[2024-01-02] MEDS: HEPARIN NA (PORCINE) 5,000 UNITS/ML 1ML VIAL SQ SCH (21:58)
[2024-01-02] MEDS: INSULIN ASPART SLIDING SCALE (NOVOLOG) 1 VIAL SQ SCH (21:59)
[2024-01-03] MEDS: PIPERACILLIN/TAZOB 3.375 GM 3.375 GM in DEXTROSE 5%-WATER - 50 ML IVPB SCH (02:50)
[2024-01-03] MEDS: VANCOMYCIN/WATER FOR INJ (PEG) 1,000 MG/200 ML BAG IVPB SCH (05:53)
[2024-01-03] MEDS ORDERED: metFORMIN HCL 500 MG TABLET (FP) PO SCH (07:00)
[2024-01-04] MEDS: PIPERACILLIN/TAZOB 3.375 GM 3.375 GM in DEXTROSE 5%-WATER - 50 ML IVPB SCH (02:17)
[2024-01-04] MEDS: VANCOMYCIN/WATER FOR INJ (PEG) 1,000 MG/200 ML BAG IVPB SCH (05:56)
[2024-01-04] MEDS: INSULIN (LEVEMIR) 100 UNITS/ML UNITS SQ SCH (06:40)
[2024-01-04 09:59] LABS: HEMATOCRIT 26.6 % (32.4-45.2); HEMOGLOBIN 8.6 GM/dL (10.7-15.3); LYMPH % 38.2 % (8-40); MCH 25.5 pg (25.7-33.7); MCHC 32.3 g/dl (32.0-36.0); MEAN CELL VOLUME 78.9 fl (80-96); MEAN PLT VOLUME 6.8 fl (7.5-11.1); MONO % 34.5 % (3.8-10.2); NEUT % 27.3 % (42.8-82.8); PLATELET COUNT 395 10^3/uL (134-434); RBC 3.37 M/mm3 (3.60-5.2); RDW 15.3 % (11.6-15.6); WHITE BLOOD COUNT 5.9 K/mm3 (4.0-10.0)
[2024-01-04 10:29] LABS: ANISOCYTOSIS 0; MACROCYTOSIS 0
[2024-01-04 10:31] LABS: POTASSIUM 4.6 mmol/L (3.5-5.1)
[2024-01-04 10:46] LABS: ALBUMIN 2.6 g/dl (3.4-5.0); BLOOD UREA NITROGEN 24.9 mg/dL (7-18); CALCIUM 8.8 mg/dL (8.5-10.1)
[2024-01-04 10:50] LABS: CREATININE 1.7 mg/dL (0.55-1.3)
[2024-01-04 10:51] LABS: BILIRUBIN,TOTAL 0.3 mg/dL (0.2-1); TOT PROT 6.8 g/dl (6.4-8.2)
[2024-01-04] MEDS ORDERED: PATIENT'S OWN MEDICATION (NON-FORMULARY) (Nifedipine [Nifedipine Er] 90 MG Tablet.Er) PO SCH (20:15)
[2024-01-04 20:46] LABS: N-TERMINAL BNP 596.2 pg/ml (5-125)
[2024-01-04] MEDS ORDERED: NIFEdipine E.R. 90 MG TABLET PO SCH ×2 (20:58→21:15)
[2024-01-04] MEDS: NIFEdipine E.R. 90 MG TABLET PO ONE (21:08)
[2024-01-04 21:09] LABS: EPI CELLS 4 /uL (0-25.1); HYALINE CASTS 0 /uL (0-3.1); PH,URINE 5.5 (5.0-8.0); URINE APPEARANCE CLEAR; URINE BACTERIA 2 /uL (0-1359); URINE BILIRUBIN NEGATIVE (NEGATIVE); URINE COLOR YELLOW; URINE GLUCOSE (UA) NEGATIVE (NEGATIVE); URINE KETONE NEGATIVE (NEGATIVE); URINE LEUK ESTERASE NEGATIVE (NEGATIVE); URINE NITRITE NEGATIVE (NEGATIVE); URINE PROTEIN 2+ (NEGATIVE); URINE RBC 10 /uL (0-23.9); URINE UROBILINOGEN 0.2 mg/dL (0.2-1.0); URINE WBC 1 /uL (0-25.8)
[2024-01-05] MEDS ORDERED: NIFEdipine E.R. 90 MG TABLET PO SCH (10:00)
[2024-01-05] MEDS: NIFEdipine E.R. 90 MG TABLET PO SCH (10:13)
[2024-01-05 10:51] LABS: POTASSIUM 4.2 mmol/L (3.5-5.1)
[2024-01-05 10:52] LABS: CALCIUM 8.7 mg/dL (8.5-10.1)
[2024-01-05 10:54] LABS: BLOOD UREA NITROGEN 22.1 mg/dL (7-18)
[2024-01-05 10:57] LABS: CREATININE 1.7 mg/dL (0.55-1.3)
[2024-01-06 09:05] LABS: BASO % 0.4 % (0-2.0); HEMATOCRIT 26.5 % (32.4-45.2); HEMOGLOBIN 8.8 GM/dL (10.7-15.3); LYMPH % 20.2 % (8-40); MCH 26.2 pg (25.7-33.7); MCHC 33.3 g/dl (32.0-36.0); MEAN CELL VOLUME 78.5 fl (80-96); MEAN PLT VOLUME 6.5 fl (7.5-11.1); MONO % 5.6 % (3.8-10.2); NEUT % 71.8 % (42.8-82.8); PLATELET COUNT 409 10^3/uL (134-434); RBC 3.37 M/mm3 (3.60-5.2); RDW 15.8 % (11.6-15.6); WHITE BLOOD COUNT 7.1 K/mm3 (4.0-10.0)
[2024-01-06 09:18] LABS: POTASSIUM 4.2 mmol/L (3.5-5.1)
[2024-01-06 09:23] LABS: ALBUMIN 2.7 g/dl (3.4-5.0); BLOOD UREA NITROGEN 22.5 mg/dL (7-18); CALCIUM 8.6 mg/dL (8.5-10.1)
[2024-01-06 09:26] LABS: CREATININE 1.6 mg/dL (0.55-1.3)
[2024-01-06 09:28] LABS: BILIRUBIN,TOTAL 0.5 mg/dL (0.2-1); TOT PROT 6.8 g/dl (6.4-8.2)
[2024-01-06] MEDS ORDERED: KETOROLAC TROMETHAMINE 15 MG/ML VIAL IVPUSH PRN (21:05)
[2024-01-06] MEDS: LABETALOL HCL 100 MG TABLET (FP) PO SCH (21:25)
[2024-01-06] MEDS: HEPARIN NA (PORCINE) 5,000 UNITS/ML 1ML VIAL SQ SCH (21:26)
[2024-01-06] MEDS: INSULIN ASPART SLIDING SCALE (NOVOLOG) 1 VIAL SQ SCH (21:27)
[2024-01-06] MEDS: SODIUM CHLORIDE 1,000 ML IV SCH (21:27)
[2024-01-06] MEDS: PIPERACILLIN/TAZOB 3.375 GM 3.375 GM in DEXTROSE 5%-WATER - 50 ML IVPB SCH (21:34)
[2024-01-07 07:14] VITALS: TEMP 98.6
[2024-01-07 13:27] VITALS: BP 169/94; PULSE 72
== END 2024-01-07 14:22 | disposition home or self-care (01) | DRG 385 ==
LOC: JERFT 10:59 → JER 10:59 → JERBED 14:24 → J5S 17:49
PROVIDERS: ADMIT Internal Medicine; ATTEND Internal Medicine
DX: N61.1 Abscess of the breast and nipple (principal); N17.9 Acute kidney failure, unspecified; E87.1 Hypo-osmolality and hyponatremia; E11.65 Type 2 diabetes mellitus with hyperglycemia; E11.22 Type 2 diabetes mellitus with diabetic chronic kidney disease; E87.6 Hypokalemia; I12.9 Hypertensive chronic kidney disease with stage 1 through stage 4 chronic kidney disease, or unspecified chronic kidney disease; N18.9 Chronic kidney disease, unspecified; Z79.84 Long term (current) use of oral hypoglycemic drugs; G47.33 Obstructive sleep apnea (adult) (pediatric); D64.9 Anemia, unspecified
CPT/HCPCS: 36415; 76642-TC-LT; 76775-TC; 80048; 80053; 80061; 81003; 82962; 83036; 83880; 84703; 85025; 85610; 86850; 86900; 86901; 87040; 87070; 87205; 93005; 93010; 93306-TC; 93971; 99285-25; G0480; J1644